=== PATIENT | female | born 1950 | race Caucasian/White ===

== ENCOUNTER 2016-04-25 15:33 | Observation (INO) ==
[2016-04-25 16:31] LABS: Basophils # 0.1 K/mcL (0.0-0.2); Basophils % 0.8 %; Eosinophils # 0.2 K/mcL (0.0-0.6); Eosinophils % 3.2 %; Hemoglobin 12.1 g/dL (11.5-15.4); Immature Granulocytes % 0.4 % (0-4); Lymphocytes # 1.7 K/mcL (0.6-4.6); Lymphocytes % 22.2 %; Mean Corpuscular HGB Conc 34.6 g/dL (31.6-35.5); Mean Corpuscular Hemoglobin 30.3 pg (28.0-33.3); Mean Corpuscular Volume 87.7 fL (83.0-100.0); Monocytes # 0.6 K/mcL (0.0-1.3); Monocytes % 7.8 %; Platelet Count 295 K/mcL (140-400); Red Blood Count 3.99 M/mcL (3.82-4.97); Red Cell Distribution Width 13.1 % (11.5-14.5); Segmented Neutrophils % 65.6 %
[2016-04-25 16:44] LABS: BUN/Creatinine Ratio 23 (6-26); Blood Urea Nitrogen 24 mg/dL (7-20); Carbon Dioxide 22 mEq/L (19-29); Chloride 103 mEq/L (98-109); Glucose 129 mg/dL (70-99); Osmolality,Calculated 296 (280-300); Potassium 4.5 mEq/L (3.5-4.5); Sodium 140 mEq/L (136-145); eGFR For African Americans > 60 (> 60); eGFR For Non-African Americans 54 (> 60)
--- NOTE | 2016-04-25 19:47 | Emergency Department Note ---
Disposition Clinical Impression: Exertional dyspnea, Light headedness, Pre-syncope Disposition: Admitted As Inpatient Condition: Good Referrals: Carlo Acevedo DO [Primary Care Provider] - Forms: ED Satisfaction Letter Time of Disposition: 21:01 SOB HPI - General Chief Complaint: ED Shortness of Breath/Dyspnea Stated Complaint: MARY Time Seen by Provider: 04/25/16 19:39 Source: patient Mode of arrival: ambulatory Limitations: no limitations Nursing Notes Reviewed: Yes Vital Signs Reviewed: Yes - History of Present Illness This is a 66-year-old female who presents with shortness of breath and exertional dyspnea. Patient states when she just sitting there its not as bad but when she starts to move it gets worse. Patient states she had an inconclusive pulmonary function test and she is seeing a almond huller. Patient 's never had any cardiac history. Patient denies any CHF or cardiac stents. Patient states she does have a history of mitral valve prolapse. Patient is not running a fever or coughing. Pt Subjective Complaint: shortness of breath Onset (ago): hour(s) (started worse this morning) - Related Data Home Medications Medication Instructions Recorded Confirmed Atorvastatin Calcium [Lipitor] 80 mg PO QPM 07/06/15 07/06/15 Hydrochlorothiazide 25 mg PO DAILY 07/06/15 07/06/15 Insulin ASPART [Novolog Flexpen] 15 unit SQ TID 07/06/15 07/06/15 Insulin Glargine,Hum.rec.anlog 40 unit SQ BID 07/06/15 07/06/15 [Lantus Solostar] Lisinopril [Zestril] 20 mg PO DAILY 07/06/15 07/06/15 Metformin HCl [Metformin HCl ER] 500 mg PO QPM 07/06/15 07/06/15 Ranitidine HCl [Zantac] 150 mg PO BID 07/06/15 07/06/15 Verapamil HCl [Verapamil ER] 240 mg PO QPM 07/06/15 07/06/15 Previous Rx's Medication Instructions Recorded Levothyroxine [Synthroid] 100 mcg PO DAILY #30 tablet 07/08/15 Meclizine [Antivert] 25 mg PO TID PRN #60 tablet 07/08/15 Allergies Allergy/AdvReac Type Severity Reaction Status Date / Time No Known Allergies Allergy Verified 04/25/16 15:40 All systems ED: reviewed and negative except as stated. Constitutional: Denies: fever, chills, weakness, weight change Eyes: Denies: eye pain, eye discharge, vision change ENT ED: Denies: ear pain, throat pain, dental pain, hearing loss, epistaxis, congestion, dysphagia Cardiovascular: Reports: dyspnea on exertion. Denies: chest pain, palpitations , edema, syncope Respiratory: Reports: dyspnea. Denies: cough, wheezes, hemoptysis, stridor Gastrointestinal: Denies: abdominal pain, nausea, vomiting, diarrhea, constipation, hematemesis, melena, hematochezia Genitourinary: Denies: dysuria, frequency, hematuria, discharge Musculoskeletal: Denies: back pain, neck pain, arthralgia, myalgia Integumentary: Denies: rash, abrasion, lesions Neurological: Denies: headache, weakness, numbness, paresthesias, confusion, abnormal gait, vertigo Psychiatric: Denies: anxiety, depression, suicidal thoughts, homicidal thoughts , auditory hallucinations, visual hallucinations Endocrine: Denies: fatigue Hematological/Lymphatic: Denies: easy bleeding, easy bruising Allergic/Immunologic: Denies: facial swelling, urticaria Past Medical History - Past Medical History Attestation: Yes The following information was validated with the patient. Source: patient Medical history: Reports: diabetes, hypertension, thyroid disease, valvular heart disease Surgical history: Reports: cholecystectomy, hysterectomy Psychiatric history: Reports: no psych history FILM DEVELOPER history: Reports: no FILM DEVELOPER history - Social History Smoking Status: Former smoker Smokeless Tobacco Status: No Alcohol use: Reports: none Drug use: Reports: none Physical Exam - General Limitations: no limitations General appearance: alert, in no apparent distress - Head Head exam: atraumatic, normocephalic, normal inspection - Eye Eye exam: Present: normal appearance, PERRL, EOMI - ENT ENT exam: normal exam, normal oropharynx, mucous membranes moist - Expanded ENT Exam External ear exam: Present: normal external inspection Mouth exam: Present: normal external inspection Teeth exam: Present: normal inspection Throat exam: Present: normal inspection - Neck Neck exam: Present: normal inspection, full ROM, trachea midline - Chest Chest inspection: Present: normal inspection, symmetric chest wall rise - Respiratory Respiratory exam: Present: normal lung sounds bilaterally - Cardiovascular Cardiovascular exam: Present: regular rate, normal rhythm, normal heart sounds - Abdominal Exam Abdominal exam: Present: soft, Non-Tender. Absent: tenderness, distention, guarding, rebound, rigidity - Extremities Exam Extremities exam: Present: normal inspection, full ROM. Absent: tenderness, pedal edema - Expanded Upper Extremity Exam Shoulder exam: Present: normal inspection, full ROM Arm exam: Present: normal inspection, full ROM Elbow exam: Present: normal inspection, full ROM Forearm/Wrist exam: Present: normal inspection, full ROM Hand exam: Present: normal inspection, full ROM Vascular exam: Normal: capillary refill, radial pulse - Expanded Lower Extremity Exam Hip/Pelvis exam: Present: normal inspection, full ROM Upper leg exam: Present: normal inspection, full ROM Knee exam: Present: normal inspection, full ROM Lower leg exam: Present: normal inspection, full ROM Ankle exam: Present: normal inspection, full ROM Foot/toe exam: Present: normal inspection, full ROM Neurovascular/Tendon exam: Absent: motor deficit, sensory deficit, tendon deficit - Back Exam Back exam: Present: normal inspection, full ROM. Absent: tenderness - Neurological Exam Neurological exam: Present: alert, oriented X3 - Expanded Neurological Exam Patient oriented to: Present: person, place, time Coma Scale Eye Opening: Spontaneous Coma Scale Motor Response: Obeys Commands Coma Scale Verbal Response: Oriented Coma Scale Total: 15 - Psychiatric Psychiatric exam: Present: normal affect, normal mood - Skin Skin exam: Present: warm, dry, intact, normal color Course - Reevaluation(s) Reevaluation #1: On repeat evaluation patient states she is still feeling lightheaded and pre- syncopal. Patient would rather come in for an observation. Patient states she had a negative stress test a few months ago. Time: 21:01 - Consultations Consultation #1: I spoke with Dr. Lan caldwell to admit but wants a CTA Chest done. Time: 21:17 Vital Signs Temperature 97.2 F L 04/25/16 15:36 Pulse Rate 76 04/25/16 15:36 Respiratory Rate 20 04/25/16 15:36 Blood Pressure 174/77 04/25/16 15:36 O2 Sat by Pulse Oximetry 94 L 04/25/16 15:36 Temperature 97.2 F L 04/25/16 15:36 Pulse Rate 61 04/25/16 20:26 Respiratory Rate 16 04/25/16 20:26 Blood Pressure 160/65 04/25/16 20:26 O2 Sat by Pulse Oximetry 96 04/25/16 20:26 Oxygen Delivery Oxygen Delivery Room Air Shortness of Breath/Dyspnea - Medical Records Medical records reviewed: Yes I reviewed the patient's medical records. - Lab Data Lab results reviewed: Yes I reviewed the patient's lab results. Result diagrams: 04/25/16 16:20 04/25/16 16:20 Lab Results 04/25/16 04/25/16 04/25/16 Range/Units 16:20 16:20 16:20 WBC 7.6 (4.3-11.1) K/mcL RBC 3.99 (3.82-4.97) M/mcL Hgb 12.1 (11.5-15.4) g/dL Hct 35.0 L (35.3-44.9) % MCV 87.7 (83.0-100.0) fL MCH 30.3 (28.0-33.3) pg MCHC 34.6 (31.6-35.5) g/dL RDW 13.1 (11.5-14.5) % Plt Count 295 (140-400) K/mcL MPV 10.0 (9.4-12.4) fL Immature Gran % 0.4 (0-4) % Seg Neutrophils % 65.6 % Lymphocytes % 22.2 % Monocytes % 7.8 % Eosinophils % 3.2 % Basophils % 0.8 % Neutrophils # 5.0 (1.6-8.9) K/mcL Lymphocytes # 1.7 (0.6-4.6) K/mcL Monocytes # 0.6 (0.0-1.3) K/mcL Eosinophils # 0.2 (0.0-0.6) K/mcL Basophils # 0.1 (0.0-0.2) K/mcL D-Dimer (0-500) ng/mLFEU Sodium 140 (136-145) mEq/L Potassium 4.5 (3.5-4.5) mEq/L Chloride 103 (98-109) mEq/L Carbon Dioxide 22 (19-29) mEq/L BUN 24 H (7-20) mg/dL Creatinine 1.03 (0.57-1.11) mg/dL Est GFR ( Amer) > 60 (> 60) Est GFR (Non-Af Amer) 54 L (> 60) BUN/Creatinine Ratio 23 (6-26) Glucose 129 H (70-99) mg/dL Calculated Osmolality 296 (280-300) Calcium 10.0 (8.6-10.8) mg/dL Troponin I 0.01 (0-0.03) ng/mL B-Natriuretic Peptide (0-100) pg/mL Urine Color (Yellow) Urine Clarity (Clear) Urine pH (5.0-8.0) pH Units Ur Specific [place] (1.010-1.025) Urine Protein (Neg-Trace) mg/dL Urine Glucose (UA) (Normal) mg/dL Urine Ketones (Negative) mg/dL Urine Blood (Negative) Urine Nitrite (Negative) Urine Bilirubin (Negative) Urine Urobilinogen (Normal) mg/dL Ur Leukocyte Esterase (Negative) Urine Microscopic RBC (0-3) per hpf Urine Microscopic WBC (0-3) per hpf Ur Squamous Epith Cells (None-Few) per lpf Urine Bacteria (None-Few) per hpf Hyaline Casts (None-Few) per lpf Ur Culture Indicated? (NO) 04/25/16 04/25/16 04/25/16 Range/Units 16:20 19:45 20:10 WBC (4.3-11.1) K/mcL RBC (3.82-4.97) M/mcL Hgb (11.5-15.4) g/dL Hct (35.3-44.9) % MCV (83.0-100.0) fL MCH (28.0-33.3) pg MCHC (31.6-35.5) g/dL RDW (11.5-14.5) % Plt Count (140-400) K/mcL MPV (9.4-12.4) fL Immature Gran % (0-4) % Seg Neutrophils % % Lymphocytes % % Monocytes % % Eosinophils % % Basophils % % Neutrophils # (1.6-8.9) K/mcL Lymphocytes # (0.6-4.6) K/mcL Monocytes # (0.0-1.3) K/mcL Eosinophils # (0.0-0.6) K/mcL Basophils # (0.0-0.2) K/mcL D-Dimer 610 H (0-500) ng/mLFEU Sodium (136-145) mEq/L Potassium (3.5-4.5) mEq/L Chloride (98-109) mEq/L Carbon Dioxide (19-29) mEq/L BUN (7-20) mg/dL Creatinine (0.57-1.11) mg/dL Est GFR ( Amer) (> 60) Est GFR (Non-Af Amer) (> 60) BUN/Creatinine Ratio (6-26) Glucose (70-99) mg/dL Calculated Osmolality (280-300) Calcium (8.6-10.8) mg/dL Troponin I (0-0.03) ng/mL B-Natriuretic Peptide 36 (0-100) pg/mL Urine Color Yellow (Yellow) Urine Clarity Clear (Clear) Urine pH 5.5 (5.0-8.0) pH Units Ur Specific [place] 1.025 (1.010-1.025) Urine Protein Negative (Neg-Trace) mg/dL Urine Glucose (UA) Normal (Normal) mg/dL Urine Ketones Trace H (Negative) mg/dL Urine Blood Negative (Negative) Urine Nitrite Negative (Negative) Urine Bilirubin Negative (Negative) Urine Urobilinogen Normal (Normal) mg/dL Ur Leukocyte Esterase Small H (Negative) Urine Microscopic RBC 0-3 (0-3) per hpf Urine Microscopic WBC 15-30 H (0-3) per hpf Ur Squamous Epith Cells Many H (None-Few) per lpf Urine Bacteria None Seen (None-Few) per hpf Hyaline Casts None Seen (None-Few) per lpf Ur Culture Indicated? YES A (NO) 04/25/16 Range/Units 20:10 WBC (4.3-11.1) K/mcL RBC (3.82-4.97) M/mcL Hgb (11.5-15.4) g/dL Hct (35.3-44.9) % MCV (83.0-100.0) fL MCH (28.0-33.3) pg MCHC (31.6-35.5) g/dL RDW (11.5-14.5) % Plt Count (140-400) K/mcL MPV (9.4-12.4) fL Immature Gran % (0-4) % Seg Neutrophils % % Lymphocytes % % Monocytes % % Eosinophils % % Basophils % % Neutrophils # (1.6-8.9) K/mcL Lymphocytes # (0.6-4.6) K/mcL Monocytes # (0.0-1.3) K/mcL Eosinophils # (0.0-0.6) K/mcL Basophils # (0.0-0.2) K/mcL D-Dimer (0-500) ng/mLFEU Sodium (136-145) mEq/L Potassium (3.5-4.5) mEq/L Chloride (98-109) mEq/L Carbon Dioxide (19-29) mEq/L BUN (7-20) mg/dL Creatinine (0.57-1.11) mg/dL Est GFR ( Amer) (> 60) Est GFR (Non-Af Amer) (> 60) BUN/Creatinine Ratio (6-26) Glucose (70-99) mg/dL Calculated Osmolality (280-300) Calcium (8.6-10.8) mg/dL Troponin I 0.01 (0-0.03) ng/mL B-Natriuretic Peptide (0-100) pg/mL Urine Color (Yellow) Urine Clarity (Clear) Urine pH (5.0-8.0) pH Units Ur Specific [place] (1.010-1.025) Urine Protein (Neg-Trace) mg/dL Urine Glucose (UA) (Normal) mg/dL Urine Ketones (Negative) mg/dL Urine Blood (Negative) Urine Nitrite (Negative) Urine Bilirubin (Negative) Urine Urobilinogen (Normal) mg/dL Ur Leukocyte Esterase (Negative) Urine Microscopic RBC (0-3) per hpf Urine Microscopic WBC (0-3) per hpf Ur Squamous Epith Cells (None-Few) per lpf Urine Bacteria (None-Few) per hpf Hyaline Casts (None-Few) per lpf Ur Culture Indicated? (NO) - Radiology Data Radiology results reviewed: Yes I reviewed the patient's radiology results. - EKG Data EKG attestation: Yes I reviewed and interpreted this EKG. EKG shows normal: Reports: sinus rhythm Rate: Reports: normal Rhythm: Reports: NSR [place]/QRS: Reports: normal Interpretation: Reports: no acute changes, normal EKG
[2016-04-25 20:01] LABS: Bilirubin,Urine Negative (Negative); Blood,Urine Negative (Negative); Clarity,Urine Clear (Clear); Color,Urine Yellow (Yellow); Glucose,Urine (UA) Normal (Normal); Ketones,Urine Trace mg/dL (Negative); Leukocyte Esterase,Urine Small (Negative); Nitrite,Urine Negative (Negative); PH,Urine 5.5 pH Units (5.0-8.0); Protein,Urine Negative (Neg-Trace); Specific Gravity,Urine 1.025 (1.010-1.025); Urobilinogen,Urine Normal (Normal)
[2016-04-25 20:04] LABS: Bacteria,Urine None Seen per hpf (None-Few); Hyaline Casts,Urine None Seen per lpf (None-Few); RBC,Urine 0-3 per hpf (0-3); Squamous Epithelial Cell,Urine Many per lpf (None-Few); WBC,Urine 15-30 per hpf (0-3)
[2016-04-25] MEDS ORDERED: Dextrose Gel 15 GM PO PRN ×2 (23:08)
[2016-04-25] MEDS ORDERED: *HR* Dextrose 50 % in Water (Syg) 50 ML SYRINGE IVP PRN (23:08)
[2016-04-25] MEDS ORDERED: D5% in Water 1,000 ML IV PRN (23:08)
[2016-04-25] MEDS ORDERED: Ondansetron 4 MG/2 ML VIAL IVP PRN (23:21)
[2016-04-25] MEDS ORDERED: Acetaminophen 325 MG TABLET PO PRN (23:21)
[2016-04-25] MEDS ORDERED: Naloxone 0.4 MG/ML INJ IVP PRN (23:21)
--- NOTE | 2016-04-25 23:38 | Event Note ---
Addendum entered and electronically signed by Chava Montenegro MD 04/25/16 22:42 : She also had an angiogram showing no occlusive CAD Original Note: Date of Encounter: 04/25/16 Time of Encounter: 22:35 Patient seen and examined with medical bill processor. Briefly 66-year-old female with history of hypertension, obstructive sleep apnea CPAP, hypothyroidism only with thyroxine presents with a main complaining of shortness of breath. Patient gets short of breath with walking less than half a block. She denies any orthopnea or lower extremity swelling. She had workup for this no clear cause was found. She will start at on Lasix for suspected mild diastolic dysfunction evident on echocardiogram related to hypertension however she did not feel that that helped her symptoms. She has a 70 pack your smoking history quit smoking 18 years ago and was started on an albuterol inhaler and feels that this somewhat help her symptoms however it lasts for a short time. She had a pulmonary function test but it was non conclusive. She saturating 95% on room air in the emergency room. I suspect that her symptoms may be related to underlying COPD. Advised her to repeat pulmonary function test. We start the patient empirically on Advair to see if she will benefit from inhaled steroids. D dimer was also elevated and CT angiogram is being performed through [facility]. Another possibility is the presence of pulmonary hypertension related to obstructive sleep apnea and possible COPD and that can cause shortness of breath.
--- NOTE | 2016-04-26 00:12 | Internal Med History&Physical ---
Date of Encounter: 04/25/16 Time of Encounter: 23:00 Assessment and Plan (1) Exertional dyspnea Current visit: Yes Status: Acute Patient reports shortness of breath upon exertion. She reports some periods of blackout vision that lasts a few minutes. She denies syncopal episodes. Etiology unclear at this time. CTA was negative for PE. Heart normal in size, and no pericardial effusion or pleural effusion was noted. CXR was reviewed-suggests hyperinflation and possible COPD. Patient states that she had PFTs done by per cinema or theatre manager that were inconclusive. Consider repeat PFTs outpatient with follow up to pulmonology. Patient has a significant 70 pack year smoking history but is not a current smoker. Last echo was done on 07/07/15 which showed LVEF 65% with normal LV size and function and mild diastolic dysfunction. Consider COPD, pulmonary hypertension as a possible cause of her symptoms. trial of inhaled steroids. (2) RAJENDRA (obstructive sleep apnea) Current visit: Yes Status: Chronic Patient reports compliance with bipap at home, says her settings are 8/4. Continue with BiPAP use at hospital. (3) Diabetes mellitus, type II Current visit: Yes Status: Chronic Levemir with medium dose sliding scale insulin ACHS accuchecks cardiac/diabetic diet. Qualifiers: Diabetes mellitus complication status: with unspecified complications Diabetes mellitus oil heaterman insulin use: unspecified alf insulin use status Qualified Code(s): E11.8 - Type 2 diabetes mellitus with unspecified complications (4) Hypothyroidism Current visit: No Status: Chronic continue home dose of synthroid. Qualifiers: Hypothyroidism type: unspecified Qualified Code(s): E03.9 - Hypothyroidism , unspecified (5) Obesity Current visit: Yes Status: Chronic patient counseled on importance of weight loss and exercise. Qualifiers: Obesity type: unspecified obesity type Obesity severity: unspecified obesity severity Qualified Code(s): E66.9 - Obesity, unspecified (6) Hypertension Current visit: Yes Status: Acute continue home dose of lisinopril. Qualifiers: Hypertension type: essential hypertension Qualified Code(s): I10 - Essential (primary) hypertension (7) DVT prophylaxis Current visit: No Status: Acute heparin 5,000 units SQ Q8HR Internal Medicine - H&P: HPI Chief complaint: shortness of breath Admitted From: Home Plans for Post Hospital Care: Home History of present illness: PCP: Kristina Matos Ms. Barraza is a 66 year old female with PMHx of hypothyroidism, Type 2 DM, obesity, fibromyalgia, hypertension, mitral valve prolapse RAJENDRA (on BiPAP at home ). Patient has Chief complaint of shortness of breath that started a few days ago and progressively got worse. She reports shortness of breath upon exertion, and today noticed some shortness of breath at rest which made her come to the hospital. Upon interview, she denied shortness of breath. She did not require any supplemental oxygen. Patient denies any syncope. She states that at times, her vision would get completely black for a few minutes, then return to normal. She denies weakness. Denies any cough, sputum production, headache, fever, chills. Patient has a 70 pack year smoking history. She is not a current smoker and quit about 18 years ago. She regularly sees a cinema or theatre manager. She had PFTs done but they were inconclusive. Social Hisotory: patient denies alcohol or illicit drug use. Smoked for 35 years , 2PPD. Quit 18 years ago. Surgical Hx: hysterectomy in 1999, open cholecystectomy in 1972, hysteroscopy with tubal ligation in Family Hx: mother from stroke at age 59. Father from [place] at age 82. Brother from bone cancer, sister from liver cancer. SHe has four children, two of them have DM. Past Med Surg Social Fam HX - Past Medical History Medical history: diabetes, hypertension, thyroid disease, valvular heart disease Psychiatric history: no psych history - Past Surgical History Surgical History: cholecystectomy, hysterectomy - Social History Smoking Status: Former smoker Smokeless Tobacco Status: No Alcohol use: none Drug use: none - Family History Father Living Status: Age at : 82 Cause of : Natural Hx Family Cardiac Disorders: Yes (HTN) Hx Family Respiratory Disorders: Yes (COPD, black lung) Hx Family Neurologic Disorders: Yes (Dementia) Brother Hx Family Cancer: Yes Mother Living Status: Age at : 59 Cause of : Stroke Hx Family Genitourinary Disorders: Yes (renal failure) Hx Family Endocrine Disorder: Yes (DM) Hx Family Neurologic Disorders: Yes (stroke) Internal Medicine - H&P: Meds Insulin ASPART [Novolog Flexpen] 25 unit SQ TID 07/06/15 [History] Insulin Glargine,Hum.rec.anlog [Lantus Solostar] 40 unit SQ BID 07/06/15 [ History] Lisinopril [Zestril] 20 mg PO QAM 07/06/15 [History] Metformin HCl [Metformin HCl ER] 500 mg PO QPM 07/06/15 [History] Ranitidine HCl [Zantac] 150 mg PO BID 07/06/15 [History] Carvedilol 12.5 mg PO BID 04/25/16 [History] Furosemide [Lasix] 20 mg PO QAM 04/25/16 [History] Levothyroxine [Synthroid] 100 mcg PO QAM 04/25/16 [History] Marco A's Wort 300 mg PO BID 04/25/16 [History] Allergies atorvastatin [From Lipitor] Adverse Reaction (Verified 04/25/16 21:35) Muscle Pain All Systems PM: A 10-system review of systems was performed and is negative for pertinent findings except as documented above in the HPI. - Constitutional Constitutional: no anorexia, no chills, no fatigue, no fever(s), no falls - EENT Eyes: change in vision - Cardiovascular Cardiovascular ROS IM: dyspnea, dyspnea on exertion, no chest pain, no syncope - Respiratory Respiratory: dyspnea on exertion, no cough, no wheezing - Gastrointestinal Gastrointestinal: no abdominal pain, no hematochezia, no melena - Neurological Neurological ROS: no frequent falls, no headache(s) - Constitutional Vitals: Temp Pulse Resp BP Pulse Ox 97.6 F 63 17 172/70 92 L 04/25/16 22:36 04/25/16 22:36 04/25/16 22:36 04/25/16 22:36 04/25/16 22:36 General appearance: Present: A&O X 3, pleasant, no acute distress, obese, answers questions appropriately - Head Head exam: Present: atraumatic, normocephalic - Neck Neck exam general surgery: Present: supple, trachea midline - Respiratory Respiratory exam: Present: decreased breath sounds (significantly decreased breath sounds througout bilaterally. ) - Cardiovascular Cardiovascular exam: Present: RRR (murmur noted.) - GI/Abdominal GI/Abdominal exam: Present: soft. Absent: tenderness (obese) - Extremities Exam Extremities exam: Absent: cyanotic, pedal edema (no clubbing noted.) - Neurological Exam Neurological exam: Present: alert, oriented X3, no focal deficits Internal Med - H&P Results - Labs CBC & Chem 7: 04/25/16 16:20 04/25/16 16:20
[2016-04-26 05:07] LABS: Basophils % 0.5 %; Eosinophils # 0.3 K/mcL (0.0-0.6); Eosinophils % 3.2 %; Hemoglobin 11.1 g/dL (11.5-15.4); Immature Granulocytes % 0.3 % (0-4); Lymphocytes % 24.6 %; Mean Corpuscular HGB Conc 33.6 g/dL (31.6-35.5); Mean Corpuscular Hemoglobin 29.6 pg (28.0-33.3); Mean Platelet Volume 10.4 fL (9.4-12.4); Monocytes # 0.8 K/mcL (0.0-1.3); Monocytes % 9.6 %; Neutrophils # 4.9 K/mcL (1.6-8.9); Platelet Count 221 K/mcL (140-400); Red Blood Count 3.75 M/mcL (3.82-4.97); Red Cell Distribution Width 13.2 % (11.5-14.5); Segmented Neutrophils % 61.8 %
[2016-04-26 05:20] LABS: BUN/Creatinine Ratio 30 (6-26); Blood Urea Nitrogen 26 mg/dL (7-20); Calcium 9.7 mg/dL (8.6-10.8); Carbon Dioxide 21 mEq/L (19-29); Chloride 106 mEq/L (98-109); Glucose 159 mg/dL (70-99); Osmolality,Calculated 298 (280-300); Sodium 140 mEq/L (136-145); eGFR For African Americans > 60 (> 60); eGFR For Non-African Americans > 60 (> 60)
[2016-04-26] MEDS: *HR* Heparin 5,000 UNIT/ML VIAL SQ SCH ×3 (06:31→23:05)
[2016-04-26] MEDS: Budesonide/Formoterol 80/4.5 MDI IH SCH ×2 (08:21→20:17)
[2016-04-26] MEDS: Insulin LISPRO 300 UNITS/3 ML VIAL SQ SCH ×6 (08:39→17:33)
[2016-04-26] MEDS: Lisinopril 20 MG TABLET PO SCH (08:40)
[2016-04-26] MEDS: Insulin DETEMIR 100 UNIT/ML X5UNITS SQ SCH ×2 (08:40→20:41)
[2016-04-26] MEDS: Furosemide 20 MG TABLET PO SCH (08:40)
--- NOTE | 2016-04-26 11:19 | Electrocardiograph Report ---
[facility] Test Date: 2016-04-25 Pat Name: Angelia Barraza Department: 105 Room: 3B54 Gender: F Layer Off: EC : 1950 Requested By: Sussy Alvarado Order Number: [id number] Reading MD: Yaneth Avalos Measurements Intervals [place] Rate: 66 P: 38 [place]: 125 QRS: -9 QRSD: 78 T: 30 QT: 380 QTc: 393 Interpretive Statements SINUS RHYTHM Electronically Signed On 04-26-16 11:18:12 EST by Yaneth Avalos
--- NOTE | 2016-04-26 11:35 | Electrocardiograph Report ---
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
--- NOTE | 2016-04-26 16:43 | Internal Med Progress Note ---
Date of Encounter: 04/26/16 Time of Encounter: 16:40 - Assessment and plan (1) Exertional dyspnea Current Visit: Yes Status: Acute Assessment and plan: Patient with underlying hypertension, morbid obesity T, obstructive sleep apnea admitted due to shortness of breath. No evidence of pulmonary embolism, pneumonia. Negative urine culture. She is doing much better, would continue with current therapy. Continue monitoring, possible discharge tomorrow in a.m. Plan of care was discussed in detail with the patient and her family members, they expressed understanding. The patient has a follow-up appointment with pulmonology as outpatient. (2) Hypertension Current Visit: Yes Status: Acute Qualifiers: Hypertension type: essential hypertension Qualified Code(s): I10 - Essential (primary) hypertension (3) RAJENDRA (obstructive sleep apnea) Current Visit: Yes Status: Chronic (4) Obesity Current Visit: Yes Status: Chronic Qualifiers: Obesity type: unspecified obesity type Obesity severity: unspecified obesity severity Qualified Code(s): E66.9 - Obesity, unspecified - Subjective Interval history: This is my first encounter with the patient. The patient was seen and examined on rounds. Her family members were present during this encounter. She feels short of breath, however she is much better than yesterday. No wheezing at this point. - Constitutional Vitals: Temp Pulse Resp BP Pulse Ox 97.9 F 67 14 130/60 95 04/26/16 15:00 04/26/16 15:00 04/26/16 15:00 04/26/16 15:00 04/26/16 15:00 General appearance: Present: A&O X 3, morbidly obese, pleasant, no acute distress, answers questions appropriately - Head Head exam: Present: atraumatic, normocephalic - Eye Eye exam: Present: PERRL, conjuntiva pink, sclera anicteric Pupils: Present: PERRL - Neck Neck exam general surgery: Present: supple, trachea midline. Absent: lymphadenopathy - Respiratory Respiratory exam: Present: CTAB. Absent: accessory muscle use, rales, rhonchi, wheezes - Cardiovascular Cardiovascular exam: Present: RRR, +S1, +S2. Absent: diastolic murmur, gallop, rubs, systolic murmur - GI/Abdominal GI/Abdominal exam: Present: normal bowel sounds, soft, no peritoneal signs. Absent: distended, tenderness - Extremities Exam Extremities exam: Present: warm, radial pulses palpable and symetrical. Absent : calf tenderness, cyanotic, pedal edema - Neurological Exam Neurological exam: Present: CN II-XII intact, oriented X3, no focal deficits. Absent: pronater drift, facial droop, speech deficit - Skin Skin exam: Present: dry, intact Internal Medicine: Result - Labs CBC & Chem 7: 04/26/16 04:42 04/26/16 04:42 Labs: Short CBC 04/26/16 Range/Units 04:42 WBC 7.9 (4.3-11.1) K/mcL Hgb 11.1 L (11.5-15.4) g/dL Hct 33.0 L (35.3-44.9) % Plt Count 221 (140-400) K/mcL Neutrophils # 4.9 (1.6-8.9) K/mcL BMP 04/26/16 04:42 Sodium 140 Potassium 4.0 Chloride 106 Carbon Dioxide 21 BUN 26 H Creatinine 0.86 Glucose 159 H Calcium 9.7 - ABG Interpretation ABG results: PT/INR, D-dimer D-Dimer 610 ng/mLFEU (0-500) H 04/25/16 20:10 Consult Discharge Plan - Plan Referrals: Carlo Acevedo DO [Primary Care Provider] - 05/09/16 2:30 pm
[2016-04-26] MEDS ORDERED: Insulin LISPRO 300 UNITS/3 ML VIAL SQ SCH (21:00)
[2016-04-27] MEDS: *HR* Heparin 5,000 UNIT/ML VIAL SQ SCH (06:41)
[2016-04-27] MEDS: Insulin LISPRO 300 UNITS/3 ML VIAL SQ SCH ×4 (07:30→13:00)
[2016-04-27] MEDS: Lisinopril 20 MG TABLET PO SCH (07:46)
[2016-04-27] MEDS: Furosemide 20 MG TABLET PO SCH (07:47)
[2016-04-27] MEDS: Insulin DETEMIR 100 UNIT/ML X5UNITS SQ SCH (10:14)
[2016-04-27] MEDS: Budesonide/Formoterol 80/4.5 MDI IH SCH (10:54)
[2016-04-27 11:17] VITALS: BP 123/73
--- NOTE | 2016-04-27 12:42 | Discharge Summary ---
Date of Encounter: 04/27/16 Time of Encounter: 12:38 - Discharge Diagnosis (1) Exertional dyspnea Priority: Secondary Status: Acute (2) Hypertension Priority: Secondary Status: Acute Qualifiers: Hypertension type: essential hypertension Qualified Code(s): I10 - Essential (primary) hypertension (3) RAJENDRA (obstructive sleep apnea) Priority: Primary Status: Chronic (4) Obesity Priority: Secondary Status: Chronic Qualifiers: Obesity type: unspecified obesity type Obesity severity: unspecified obesity severity Qualified Code(s): E66.9 - Obesity, unspecified - Discharge Medications Prescriptions: Albuterol Sulfate [Albuterol Inhaler] 2 puff IH Q4H #1 puff Budesonide/Formoterol 80/4.5 [Symbicort 80/4.5] 1 puff IH Q12H #1 puff Home Medications: Insulin ASPART [Novolog Flexpen] 25 unit SQ TID 07/06/15 [History] Insulin Glargine,Hum.rec.anlog [Lantus Solostar] 40 unit SQ BID 07/06/15 [ History] Lisinopril [Zestril] 20 mg PO QAM 07/06/15 [History] Metformin HCl [Metformin HCl ER] 500 mg PO QPM 07/06/15 [History] Ranitidine HCl [Zantac] 150 mg PO BID 07/06/15 [History] Carvedilol 12.5 mg PO BID 04/25/16 [History] Furosemide [Lasix] 20 mg PO QAM 04/25/16 [History] Levothyroxine [Synthroid] 100 mcg PO QAM 04/25/16 [History] [place]'s Wort 300 mg PO BID 04/25/16 [History] Albuterol Sulfate [Albuterol Inhaler] 2 puff IH Q4H #1 puff 04/27/16 [Rx] Budesonide/Formoterol 80/4.5 [Symbicort 80/4.5] 1 puff IH Q12H #1 puff [Rx] Allergies/Adverse Reactions: Allergies atorvastatin [From Lipitor] Adverse Reaction (Verified 04/25/16 21:35) Muscle Pain Date of admission: 04/25/16 21:25 Primary care physician: Marie Del Real Consults: 04/25/16 22:40 Consult to Respiratory Therapy [CONS] Stat Reason for Consult: patient uses BiPAP at home. Please manage settings. Call Completed: No 04/25/16 23:08 Consult to [employer] [CONS] Routine Comment: 04/25/16 23:38 Consult to Bi Lead [CONS] Routine Reason for SW Consult: 6 min walk before discharge Discharging clinician: Ilia Luna Anticipated date of discharge: 04/27/16 - Patient Status Disposition: Home, Self-Care Condition: Good Functional capacity at discharge: independent ambulation Overall status at discharge: patient is back to baseline - Discharge Instructions Follow Up With: Carlo Acevedo DO [Primary Care Provider] - 05/09/16 2:30 pm - Diet and Activity Activity: increase activity as tolerated Diet: advance to your usual diet Interval History: Ms. Barraza is a 66 year old female with PMHx of hypothyroidism, Type 2 DM, obesity, fibromyalgia, hypertension, mitral valve prolapse RAJENDRA (on BiPAP at home ). Patient has Chief complaint of shortness of breath that started a few days ago and progressively got worse. She reports shortness of breath upon exertion, and today noticed some shortness of breath at rest which made her come to the hospital. Upon interview, she denied shortness of breath. She did not require any supplemental oxygen. Patient denies any syncope. She states that at times, her vision would get completely black for a few minutes, then return to normal. She denies weakness. Denies any cough, sputum production, headache, fever, chills. Patient has a 70 pack year smoking history. She is not a current smoker and quit about 18 years ago. She regularly sees a [facility]. She had PFTs done but they were inconclusive. Social Hisotory: patient denies alcohol or illicit drug use. Smoked for 35 years , 2PPD. Quit 18 years ago. Surgical Hx: hysterectomy in 1999, open cholecystectomy in 1972, hysteroscopy with tubal ligation in Family Hx: mother from stroke at age 59. Father from [place] at age 82. Brother from bone cancer, sister from liver cancer. SHe has four children, two of them have DM. Hospital course: Ms. Barraza is a 66 year old female Patient with underlying hypertension, morbid obesity T, obstructive sleep apnea admitted due to shortness of breath. No evidence of pulmonary embolism, pneumonia. Negative urine culture. She is doing much better, would continue with current therapy as outpatient, will discharge her on symbicort and albuterol. Plan of care was discussed in detail with the patient, she expressed understanding. The patient has a follow-up appointment with pulmonology as outpatient. - Time Spent with Patient Total time spent providing and/or coordinating discharge services: Greater than 30 minutes - Constitutional Vitals: Temp Pulse Resp BP Pulse Ox 98.0 F 58 15 123/73 95 04/27/16 11:12 04/27/16 11:12 04/27/16 11:12 04/27/16 11:12 04/27/16 11:12 General appearance: Present: A&O X 3, morbidly obese, pleasant, no acute distress, answers questions appropriately - Head Head exam: Present: atraumatic, normocephalic - Eye Eye exam: Present: PERRL, conjuntiva pink, sclera anicteric Pupils: Present: PERRL - Neck Neck exam general surgery: Present: supple, trachea midline. Absent: lymphadenopathy - Respiratory Respiratory exam: Present: CTAB. Absent: accessory muscle use, rales, rhonchi, wheezes - Cardiovascular Cardiovascular exam: Present: RRR, +S1, +S2. Absent: diastolic murmur, gallop, rubs, systolic murmur - GI/Abdominal GI/Abdominal exam: Present: normal bowel sounds, soft, no peritoneal signs. Absent: distended, tenderness - Extremities Exam Extremities exam: Present: warm, radial pulses palpable and symetrical. Absent : calf tenderness, cyanotic, pedal edema - Neurological Exam Neurological exam: Present: CN II-XII intact, oriented X3, no focal deficits. Absent: pronater drift, facial droop, speech deficit - Skin Skin exam: Present: dry, intact
== END 2016-04-27 13:35 | disposition home or self-care (01) ==
LOC: 3BNU 15:33 → EMEROO 15:33 → SUATTDRO 21:25 → 3BNU 22:42
PROVIDERS: ADMIT Internal Medicine; ATTEND Internal Medicine

== ENCOUNTER 2018-07-08 12:19 | Inpatient (IN) ==
[2018-07-08] MEDS ORDERED: Ondansetron 4 MG/2 ML VIAL IVP ONE ×2 (12:40→14:58)
[2018-07-08] MEDS ORDERED: 0.9 % Sodium Chloride 1,000 ML IVC ONE (12:40)
[2018-07-08] MEDS ORDERED: *HR* FentaNYL (PF) 100 MCG/2 ML VIAL IVP ONE (12:43)
--- NOTE | 2018-07-08 12:46 | Emergency Department Note ---
Disposition Clinical Impression: Pancreatitis Qualifiers: Chronicity: acute Pancreatitis type: unspecified pancreatitis type Acute pancreatitis complication: unspecified Qualified Code(s): K85.90 - Acute pancreatitis without necrosis or infection, unspecified Disposition: Admitted As Inpatient Referrals: Carlo Acevedo DO [Primary Care Provider] - Forms: ED Satisfaction Letter, Work/School Release Time of Disposition: 15:06 General Adult HPI - General Chief complaint: ED Abdominal Pain Stated complaint: pancreatitis Time Seen by Provider: 07/08/18 12:33 Nursing Notes Reviewed: Yes Vital Signs Reviewed: Yes - History of Present Illness HPI Narrative: 68-year-old female with past medical history significant for hypertension, [place], diabetes mellitus. Presenting for evaluation of epigastric pain beginning approximately 3 hours ago. Radiates across her abdomen in a bandlike fashion. Associated nausea and vomiting. Denies fever, chills, diarrhea, hematemesis, melena, or hematochezia. Denies chest pain or shortness of breath. No change in pain since onset. States that this feels similar to prior episode of pancreatitis as far as location and intensity. She started a new medication on , , for diabetes. Pt Subjective Complaint: Abdominal pain Onset (ago): [employer] Location: abdomen Pain Severity: severe Pain Scale: 10 Quality: sharp Consistency: constant Improves with: nothing Worsens with: nothing Associated symptoms: Reports: nausea/vomiting Treatments Prior to Arrival: none - Related Data Home Medications Medication Instructions Recorded Confirmed Insulin ASPART [Novolog Flexpen] 25 unit SQ TID 07/06/15 04/25/16 Insulin Glargine,Hum.rec.anlog 40 unit SQ BID 07/06/15 04/25/16 [Lantus Solostar] Lisinopril [Zestril] 20 mg PO QAM 07/06/15 04/25/16 Metformin HCl [Metformin ER 500 mg PO QPM 07/06/15 04/25/16 Gastric] raNITIdine HCl [Zantac] 150 mg PO BID 07/06/15 04/25/16 Carvedilol 12.5 mg PO BID 04/25/16 04/25/16 Furosemide [Lasix] 20 mg PO QAM 04/25/16 04/25/16 Levothyroxine [Synthroid] 100 mcg PO QAM 04/25/16 04/25/16 Marco A's Wort 300 mg PO BID 04/25/16 04/25/16 Previous Rx's Medication Instructions Recorded Albuterol Sulfate [Albuterol 2 puff IH Q4H #1 puff 04/27/16 Inhaler] Budesonide/Formoterol 80/4.5 1 puff IH Q12H #1 puff 04/27/16 [Symbicort 80/4.5] Meclizine [Antivert] 12.5 mg PO TID PRN #14 tablet 03/04/18 Allergies Allergy/AdvReac Type Severity Reaction Status Date / Time atorvastatin [From Lipitor] AdvReac Muscle Pain Verified 03/04/18 11:19 All systems ED: reviewed and negative except as stated. Constitutional: Denies: fever, chills Eyes: Denies: vision change Cardiovascular: Denies: chest pain Respiratory: Denies: cough, dyspnea Gastrointestinal: Reports: abdominal pain, nausea, vomiting. 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 Absent: scleral icterus, conjunctival injection - ENT ENT exam: normal oropharynx, mucous membranes moist - Respiratory Respiratory exam: Present: normal lung sounds bilaterally. Absent: respiratory distress - Cardiovascular Cardiovascular exam: Present: regular rate, normal rhythm. Absent: systolic murmur, diastolic murmur - Abdominal Exam Abdominal exam: Present: soft, tenderness (epigastric). Absent: distention, guarding, rebound, heel tap sign, Alvarenga's sign, tenderness at McBur[place]'s Point Abdominal tenderness: Present: epigastrium - Extremities Exam Extremities exam: Absent: pedal edema, calf tenderness - Back Exam Back exam: Absent: CVA tenderness (R), CVA tenderness (L), paraspinal tenderness - Neurological Exam Neurological exam: Present: alert, oriented X3 - Skin Skin exam: Present: warm, dry Course Course Narrative: Patient with history of pancreatitis, DM, and [place] with acute onset abdominal pain that is similar to prior pancreatitis. Vital signs stable, afebrile. Associated nausea and vomiting. Will evaluate with EKG, chest xray, troponin, cbc, bmp, hepatic panel, lipase, lactate, and UA. Will provide IV fluids, antiemetic and pain control. - Reevaluation(s) Reevaluation #1: Patient is seen and reevaluated the bedside. No acute changes. Patient does report improvement in pain and symptoms with medications. Laboratory evaluation does reveal a lipase of greater than 1800 and an amylase of 399. Chest x-ray without acute abnormality, EKG without acute changes of ischemia, troponin within normal limits. WBC of 13K. With mild elevation in white count and history of pancreatitis will evaluate with CT abdomen and pelvis for pseudocyst, necrosis, infection. Will make NPO, patient will require admission. Time: 13:54 Reevaluation #2: CT scan does reveal peripancreatic fat stranding and duodenitis of the second and third portions of the duodenum. No abscess or focal fluid collection identified. Patient given 1 dose of IV Zosyn. Accepted for admission by admitting hospitalist Dr. Santos. At time of disposition patient stable, vital signs within normal limits, afebrile. Time: 15:06 Vital Signs Temperature 97.4 F L 07/08/18 12:30 Pulse Rate 56 07/08/18 12:30 Respiratory Rate 22 07/08/18 12:30 Blood Pressure 160/84 07/08/18 12:30 O2 Sat by Pulse Oximetry 96 07/08/18 12:30 Temperature 97.4 F L 07/08/18 13:04 Pulse Rate 56 07/08/18 13:04 Respiratory Rate 22 07/08/18 13:04 Blood Pressure 160/84 07/08/18 13:04 O2 Sat by Pulse Oximetry 96 07/08/18 13:04 Oxygen Delivery Oxygen Delivery Room Air Medical Decision Making - Lab Data Result diagrams: 07/08/18 12:53 07/08/18 12:53 Lab Results 07/08/18 07/08/18 07/08/18 Range/Units 12:53 12:53 12:53 WBC 13.3 H (4.3-11.1) K/mcL RBC 4.08 (3.82-4.97) M/mcL Hgb 12.2 (11.5-15.4) g/dL Hct 36.6 (35.3-44.9) % MCV 89.7 (83.0-100.0) fL MCH 29.9 (28.0-33.3) pg MCHC 33.3 (31.6-35.5) g/dL RDW 12.8 (11.5-14.5) % Plt Count 276 (140-400) K/mcL MPV 10.9 (9.4-12.4) fL Immature Gran % 0.2 (0-4) % Seg Neutrophils % 83.8 % Lymphocytes % 8.8 % Monocytes % 4.2 % Eosinophils % 2.6 % Basophils % 0.4 % Neutrophils # 11.1 H (1.6-8.9) K/mcL Lymphocytes # 1.2 (0.6-4.6) K/mcL Monocytes # 0.6 (0.0-1.3) K/mcL Eosinophils # 0.4 (0.0-0.6) K/mcL Basophils # 0.1 (0.0-0.2) K/mcL PT 12.2 H (9.4-12.1) Seconds INR 1.1 APTT 28.7 (26.0-36.0) Seconds Sodium 137 (136-145) mEq/L Potassium 4.1 (3.5-5.1) mEq/L Chloride 103 (98-107) mEq/L Carbon Dioxide 21 L (23-29) mEq/L BUN 35 H (8-23) mg/dL Creatinine 1.08 (0.60-1.20) mg/dL Est GFR ( Amer) > 60 (> 60) Est GFR (Non-Af Amer) 51 L (> 60) BUN/Creatinine Ratio 32 H (6-26) Glucose 352 H (70-105) mg/dL Calculated Osmolality 306 H (280-300) Lactic Acid (0.5-2.2) mmol/L Calcium 9.1 (8.6-10.3) mg/dL Total Bilirubin 0.5 (0.3-1.0) mg/dL Direct Bilirubin 0.1 (0.0-0.2) mg/dL Indirect Bilirubin 0.4 (0.0-1.2) mg/dL AST 12 L (13-39) Units/L ALT 13 (7-52) Units/L Alkaline Phosphatase 55 (34-104) Units/L Troponin I < 0.03 (< 0.04) ng/mL Serum Total Protein 6.7 (6.4-8.9) g/dL Albumin 4.0 (3.5-5.7) g/dL Globulin 2.7 (2.4-3.5) g/dL Albumin/Globulin Ratio 1.5 (1.1-2.2) Triglycerides 177 H (< 150) mg/dL Cholesterol 131 (< 200) mg/dL LDL Cholesterol, Calc 56 (0-99) mg/dL VLDL Cholesterol, Calc 35 H (< 31) mg/dL HDL Cholesterol 40 (40-59) mg/dL Cholesterol/HDL Ratio 3.3 (0-4.9) Amylase 399 H (29-103) Units/L Lipase > 1800 H (11-82) Units/L Urine Color (Yellow) Urine Clarity (Clear) Urine pH (5.0-8.0) pH Units Ur Specific [place] (1.010-1.025) Urine Protein (Neg-Trace) mg/dL Urine Glucose (UA) (Normal) mg/dL Urine Ketones (Negative) mg/dL Urine Blood (Negative) Urine Nitrite (Negative) Urine Bilirubin (Negative) Urine Urobilinogen (Normal) mg/dL Ur Leukocyte Esterase (Negative) Ur Culture Indicated? (NO) 07/08/18 07/08/18 Range/Units 12:53 13:04 WBC (4.3-11.1) K/mcL RBC (3.82-4.97) M/mcL Hgb (11.5-15.4) g/dL Hct (35.3-44.9) % MCV (83.0-100.0) fL MCH (28.0-33.3) pg MCHC (31.6-35.5) g/dL RDW (11.5-14.5) % Plt Count (140-400) K/mcL MPV (9.4-12.4) fL Immature Gran % (0-4) % Seg Neutrophils % % Lymphocytes % % Monocytes % % Eosinophils % % Basophils % % Neutrophils # (1.6-8.9) K/mcL Lymphocytes # (0.6-4.6) K/mcL Monocytes # (0.0-1.3) K/mcL Eosinophils # (0.0-0.6) K/mcL Basophils # (0.0-0.2) K/mcL PT (9.4-12.1) Seconds INR APTT (26.0-36.0) Seconds Sodium (136-145) mEq/L Potassium (3.5-5.1) mEq/L Chloride (98-107) mEq/L Carbon Dioxide (23-29) mEq/L BUN (8-23) mg/dL Creatinine (0.60-1.20) mg/dL Est GFR ( Amer) (> 60) Est GFR (Non-Af Amer) (> 60) BUN/Creatinine Ratio (6-26) Glucose (70-105) mg/dL Calculated Osmolality (280-300) Lactic Acid 1.2 (0.5-2.2) mmol/L Calcium (8.6-10.3) mg/dL Total Bilirubin (0.3-1.0) mg/dL Direct Bilirubin (0.0-0.2) mg/dL Indirect Bilirubin (0.0-1.2) mg/dL AST (13-39) Units/L ALT (7-52) Units/L Alkaline Phosphatase (34-104) Units/L Troponin I (< 0.04) ng/mL Serum Total Protein (6.4-8.9) g/dL Albumin (3.5-5.7) g/dL Globulin (2.4-3.5) g/dL Albumin/Globulin Ratio (1.1-2.2) Triglycerides (< 150) mg/dL Cholesterol (< 200) mg/dL LDL Cholesterol, Calc (0-99) mg/dL VLDL Cholesterol, Calc (< 31) mg/dL HDL Cholesterol (40-59) mg/dL Cholesterol/HDL Ratio (0-4.9) Amylase (29-103) Units/L Lipase (11-82) Units/L Urine Color Yellow (Yellow) Urine Clarity Clear (Clear) Urine pH 6.0 (5.0-8.0) pH Units Ur Specific [place] 1.014 (1.010-1.025) Urine Protein Negative (Neg-Trace) mg/dL Urine Glucose (UA) 500 H (Normal) mg/dL Urine Ketones Negative (Negative) mg/dL Urine Blood Negative (Negative) Urine Nitrite Negative (Negative) Urine Bilirubin Negative (Negative) Urine Urobilinogen Normal (Normal) mg/dL Ur Leukocyte Esterase Negative (Negative) Ur Culture Indicated? NO (NO)
[2018-07-08 13:03] LABS: Basophils # 0.1 K/mcL (0.0-0.2); Basophils % 0.4 %; Eosinophils # 0.4 K/mcL (0.0-0.6); Eosinophils % 2.6 %; Hematocrit 36.6 % (35.3-44.9); Hemoglobin 12.2 g/dL (11.5-15.4); Immature Granulocytes % 0.2 % (0-4); Lymphocytes # 1.2 K/mcL (0.6-4.6); Lymphocytes % 8.8 %; Mean Corpuscular HGB Conc 33.3 g/dL (31.6-35.5); Mean Corpuscular Hemoglobin 29.9 pg (28.0-33.3); Mean Corpuscular Volume 89.7 fL (83.0-100.0); Mean Platelet Volume 10.9 fL (9.4-12.4); Monocytes # 0.6 K/mcL (0.0-1.3); Monocytes % 4.2 %; Neutrophils # 11.1 K/mcL (1.6-8.9); Platelet Count 276 K/mcL (140-400); Red Blood Count 4.08 M/mcL (3.82-4.97); Red Cell Distribution Width 12.8 % (11.5-14.5); Segmented Neutrophils % 83.8 %
[2018-07-08 13:28] LABS: INR 1.1; Prothrombin Time 12.2 Seconds (9.4-12.1)
[2018-07-08 13:30] LABS: Activated Partial Thrombo Time 28.7 Seconds (26.0-36.0)
[2018-07-08 13:45] LABS: Alanine Aminotransferase 13 Units/L (7-52); Albumin/Globulin Ratio 1.5 (1.1-2.2); Alkaline Phosphatase 55 Units/L (34-104); Amylase 399 Units/L (29-103); Aspartate Amino Transferase 12 Units/L (13-39); BUN/Creatinine Ratio 32 (6-26); Bilirubin,Direct 0.1 mg/dL (0.0-0.2); Bilirubin,Indirect 0.4 mg/dL (0.0-1.2); Bilirubin,Total 0.5 mg/dL (0.3-1.0); Blood Urea Nitrogen 35 mg/dL (8-23); Calcium 9.1 mg/dL (8.6-10.3); Carbon Dioxide 21 mEq/L (23-29); Chloride 103 mEq/L (98-107); Globulin 2.7 g/dL (2.4-3.5); Glucose 352 mg/dL (70-105); Lipase > 1800 Units/L (11-82); Osmolality,Calculated 306 (280-300); Potassium 4.1 mEq/L (3.5-5.1); Sodium 137 mEq/L (136-145); Total Protein 6.7 g/dL (6.4-8.9); Troponin I < 0.03 ng/mL (< 0.04); eGFR For Non-African Americans 51 (> 60)
[2018-07-08] MEDS ORDERED: Isovue-370 500 ML BOTTLE IVP ONE (13:50)
[2018-07-08 13:52] LABS: Bilirubin,Urine Negative (Negative); Blood,Urine Negative (Negative); Clarity,Urine Clear (Clear); Color,Urine Yellow (Yellow); Glucose,Urine (UA) 500 mg/dL (Normal); Ketones,Urine Negative (Negative); Leukocyte Esterase,Urine Negative (Negative); Nitrite,Urine Negative (Negative); Protein,Urine Negative (Neg-Trace); Specific Gravity,Urine 1.014 (1.010-1.025); Urobilinogen,Urine Normal (Normal)
[2018-07-08 14:14] LABS: Chol/HDL Ratio 3.3 (0-4.9); Cholesterol 131 mg/dL (< 200); HDL Cholesterol 40 mg/dL (40-59); LDL Cholesterol,Calculated 56 mg/dL (0-99); Triglycerides 177 mg/dL (< 150)
[2018-07-08] MEDS ORDERED: *HR* HYDROmorphone (PF) 1 MG/ML SYRINGE IVP ONE (14:42)
[2018-07-08] MEDS ORDERED: Piperacillin/Tazobactam 3.375 GM in Water for inj. (sterile) 20 ML 20 ML IVP ONE (14:56)
--- NOTE | 2018-07-08 14:58 | Emergency Department Note ---
Disposition Clinical Impression: Pancreatitis Qualifiers: Chronicity: acute Pancreatitis type: unspecified pancreatitis type Acute pancreatitis complication: unspecified Qualified Code(s): K85.90 - Acute pancreatitis without necrosis or infection, unspecified Disposition: Admitted As Inpatient Condition: Good Referrals: Carlo Acevedo DO [Primary Care Provider] - Forms: ED Satisfaction Letter, Work/School Release Time of Disposition: 14:58 General Adult HPI - General Chief complaint: ED Abdominal Pain Stated complaint: pancreatitis Time Seen by Provider: 07/08/18 12:33 Source: patient Limitations: no limitations - History of Present Illness Location: abdomen Pain Scale: 10 Quality: sharp Improves with: nothing Worsens with: nothing Associated symptoms: Reports: nausea/vomiting Treatments Prior to Arrival: none - Related Data Home Medications Medication Instructions Recorded Confirmed Insulin ASPART [Novolog Flexpen] 25 unit SQ TID 07/06/15 04/25/16 Insulin Glargine,Hum.rec.anlog 40 unit SQ BID 07/06/15 04/25/16 [Lantus Solostar] Lisinopril [Zestril] 20 mg PO QAM 07/06/15 04/25/16 Metformin HCl [Metformin ER 500 mg PO QPM 07/06/15 04/25/16 Gastric] raNITIdine HCl [Zantac] 150 mg PO BID 07/06/15 04/25/16 Carvedilol 12.5 mg PO BID 04/25/16 04/25/16 Furosemide [Lasix] 20 mg PO QAM 04/25/16 04/25/16 Levothyroxine [Synthroid] 100 mcg PO QAM 04/25/16 04/25/16 Marco A's Wort 300 mg PO BID 04/25/16 04/25/16 Previous Rx's Medication Instructions Recorded Albuterol Sulfate [Albuterol 2 puff IH Q4H #1 puff 04/27/16 Inhaler] Budesonide/Formoterol 80/4.5 1 puff IH Q12H #1 puff 04/27/16 [Symbicort 80/4.5] Meclizine [Antivert] 12.5 mg PO TID PRN #14 tablet 03/04/18 Allergies Allergy/AdvReac Type Severity Reaction Status Date / Time atorvastatin [From Lipitor] AdvReac Muscle Pain Verified 03/04/18 11:19 Constitutional: Denies: fever, chills Eyes: Denies: vision change Cardiovascular: Denies: chest pain Respiratory: Denies: cough, dyspnea Gastrointestinal: Reports: abdominal pain, nausea, vomiting. Denies: diarrhea, hematemesis, melena, hematochezia Genitourinary: Denies: dysuria Musculoskeletal: Denies: back pain Neurological: Denies: headache Past Medical History - Past Medical History Medical history: Reports: diabetes, hypertension, thyroid disease, valvular heart disease Surgical history: Reports: cholecystectomy, hysterectomy Psychiatric history: Reports: no psych history CHEMISTRY ASSOCIATE history: Reports: no CHEMISTRY ASSOCIATE history - Social History Smoking Status: Former smoker Smokeless Tobacco Status: No Alcohol use: Reports: none Drug use: Reports: none Physical Exam - General Limitations: no limitations General appearance: alert, in no apparent distress Course Vital Signs Temperature 97.4 F L 07/08/18 12:30 Pulse Rate 56 07/08/18 12:30 Respiratory Rate 22 07/08/18 12:30 Blood Pressure 160/84 07/08/18 12:30 O2 Sat by Pulse Oximetry 96 07/08/18 12:30 Temperature 97.4 F L 07/08/18 13:04 Pulse Rate 56 07/08/18 13:04 Respiratory Rate 22 07/08/18 13:04 Blood Pressure 160/84 07/08/18 13:04 O2 Sat by Pulse Oximetry 96 07/08/18 13:04 Oxygen Delivery Oxygen Delivery Room Air Medical Decision Making - Lab Data Result diagrams: 07/08/18 12:53 07/08/18 12:53 Lab Results 07/08/18 07/08/18 07/08/18 Range/Units 12:53 12:53 12:53 WBC 13.3 H (4.3-11.1) K/mcL RBC 4.08 (3.82-4.97) M/mcL Hgb 12.2 (11.5-15.4) g/dL Hct 36.6 (35.3-44.9) % MCV 89.7 (83.0-100.0) fL MCH 29.9 (28.0-33.3) pg MCHC 33.3 (31.6-35.5) g/dL RDW 12.8 (11.5-14.5) % Plt Count 276 (140-400) K/mcL MPV 10.9 (9.4-12.4) fL Immature Gran % 0.2 (0-4) % Seg Neutrophils % 83.8 % Lymphocytes % 8.8 % Monocytes % 4.2 % Eosinophils % 2.6 % Basophils % 0.4 % Neutrophils # 11.1 H (1.6-8.9) K/mcL Lymphocytes # 1.2 (0.6-4.6) K/mcL Monocytes # 0.6 (0.0-1.3) K/mcL Eosinophils # 0.4 (0.0-0.6) K/mcL Basophils # 0.1 (0.0-0.2) K/mcL PT 12.2 H (9.4-12.1) Seconds INR 1.1 APTT 28.7 (26.0-36.0) Seconds Sodium 137 (136-145) mEq/L Potassium 4.1 (3.5-5.1) mEq/L Chloride 103 (98-107) mEq/L Carbon Dioxide 21 L (23-29) mEq/L BUN 35 H (8-23) mg/dL Creatinine 1.08 (0.60-1.20) mg/dL Est GFR ( Amer) > 60 (> 60) Est GFR (Non-Af Amer) 51 L (> 60) BUN/Creatinine Ratio 32 H (6-26) Glucose 352 H (70-105) mg/dL Calculated Osmolality 306 H (280-300) Lactic Acid (0.5-2.2) mmol/L Calcium 9.1 (8.6-10.3) mg/dL Total Bilirubin 0.5 (0.3-1.0) mg/dL Direct Bilirubin 0.1 (0.0-0.2) mg/dL Indirect Bilirubin 0.4 (0.0-1.2) mg/dL AST 12 L (13-39) Units/L ALT 13 (7-52) Units/L Alkaline Phosphatase 55 (34-104) Units/L Troponin I < 0.03 (< 0.04) ng/mL Serum Total Protein 6.7 (6.4-8.9) g/dL Albumin 4.0 (3.5-5.7) g/dL Globulin 2.7 (2.4-3.5) g/dL Albumin/Globulin Ratio 1.5 (1.1-2.2) Triglycerides 177 H (< 150) mg/dL Cholesterol 131 (< 200) mg/dL LDL Cholesterol, Calc 56 (0-99) mg/dL VLDL Cholesterol, Calc 35 H (< 31) mg/dL HDL Cholesterol 40 (40-59) mg/dL Cholesterol/HDL Ratio 3.3 (0-4.9) Amylase 399 H (29-103) Units/L Lipase > 1800 H (11-82) Units/L Urine Color (Yellow) Urine Clarity (Clear) Urine pH (5.0-8.0) pH Units Ur Specific [place] (1.010-1.025) Urine Protein (Neg-Trace) mg/dL Urine Glucose (UA) (Normal) mg/dL Urine Ketones (Negative) mg/dL Urine Blood (Negative) Urine Nitrite (Negative) Urine Bilirubin (Negative) Urine Urobilinogen (Normal) mg/dL Ur Leukocyte Esterase (Negative) Ur Culture Indicated? (NO) 07/08/18 07/08/18 Range/Units 12:53 13:04 WBC (4.3-11.1) K/mcL RBC (3.82-4.97) M/mcL Hgb (11.5-15.4) g/dL Hct (35.3-44.9) % MCV (83.0-100.0) fL MCH (28.0-33.3) pg MCHC (31.6-35.5) g/dL RDW (11.5-14.5) % Plt Count (140-400) K/mcL MPV (9.4-12.4) fL Immature Gran % (0-4) % Seg Neutrophils % % Lymphocytes % % Monocytes % % Eosinophils % % Basophils % % Neutrophils # (1.6-8.9) K/mcL Lymphocytes # (0.6-4.6) K/mcL Monocytes # (0.0-1.3) K/mcL Eosinophils # (0.0-0.6) K/mcL Basophils # (0.0-0.2) K/mcL PT (9.4-12.1) Seconds INR APTT (26.0-36.0) Seconds Sodium (136-145) mEq/L Potassium (3.5-5.1) mEq/L Chloride (98-107) mEq/L Carbon Dioxide (23-29) mEq/L BUN (8-23) mg/dL Creatinine (0.60-1.20) mg/dL Est GFR ( Amer) (> 60) Est GFR (Non-Af Amer) (> 60) BUN/Creatinine Ratio (6-26) Glucose (70-105) mg/dL Calculated Osmolality (280-300) Lactic Acid 1.2 (0.5-2.2) mmol/L Calcium (8.6-10.3) mg/dL Total Bilirubin (0.3-1.0) mg/dL Direct Bilirubin (0.0-0.2) mg/dL Indirect Bilirubin (0.0-1.2) mg/dL AST (13-39) Units/L ALT (7-52) Units/L Alkaline Phosphatase (34-104) Units/L Troponin I (< 0.04) ng/mL Serum Total Protein (6.4-8.9) g/dL Albumin (3.5-5.7) g/dL Globulin (2.4-3.5) g/dL Albumin/Globulin Ratio (1.1-2.2) Triglycerides (< 150) mg/dL Cholesterol (< 200) mg/dL LDL Cholesterol, Calc (0-99) mg/dL VLDL Cholesterol, Calc (< 31) mg/dL HDL Cholesterol (40-59) mg/dL Cholesterol/HDL Ratio (0-4.9) Amylase (29-103) Units/L Lipase (11-82) Units/L Urine Color Yellow (Yellow) Urine Clarity Clear (Clear) Urine pH 6.0 (5.0-8.0) pH Units Ur Specific [place] 1.014 (1.010-1.025) Urine Protein Negative (Neg-Trace) mg/dL Urine Glucose (UA) 500 H (Normal) mg/dL Urine Ketones Negative (Negative) mg/dL Urine Blood Negative (Negative) Urine Nitrite Negative (Negative) Urine Bilirubin Negative (Negative) Urine Urobilinogen Normal (Normal) mg/dL Ur Leukocyte Esterase Negative (Negative) Ur Culture Indicated? NO (NO) Attestation Statement - Attestation Attestation: I examined this patient and my medical decision-making was reviewed with the Resident Physician. I agree with the documented findings, disposition and treatment plan as described except to the extent set forth below. 68 year old fmale presnets to the ED with copmlaints of pancreaitis and states she had an episode simiar yaers ago that was seoncdary to meications. patinet does have triglyceridemia and lipase/amylse are elevated and ct scan cofmrims pancreitis/duodenitis witho abscess formatio. WE will admit with pain contorl and to medicine
[2018-07-08] MEDS ORDERED: Piperacillin/Tazobactam 3.375 GM in 0.9 % Sodium Chloride Mini Bag 100 ML IVPB ONE (15:04)
[2018-07-08] MEDS ORDERED: *HR* Dextrose 50 % in Water (Syg) 50 ML SYRINGE IVP PRN (15:11)
[2018-07-08] MEDS ORDERED: Dextrose Gel 15 GM/37.5 ML TUBE PO PRN ×2 (15:11)
[2018-07-08] MEDS ORDERED: D5% in Water 1,000 ML IVC PRN (15:11)
[2018-07-08] MEDS ORDERED: Ondansetron 4 MG/2 ML VIAL IVP PRN (15:12)
[2018-07-08] MEDS ORDERED: Naloxone 0.4 MG/ML INJ IVP PRN (15:14)
--- NOTE | 2018-07-08 15:16 | Internal Med History&Physical ---
Date of Encounter: 07/08/18 Time of Encounter: 15:13 Internal Medicine - H&P: HPI Chief complaint: Abdominal pain Admitted From: Emergency Dept Plans for Post Hospital Care: Home History of present illness: Ms. Barraza is a 68 year old female with PMHx of hypothyroidism, Type 2 DM, obesity, fibromyalgia, hypertension, diastolic HF, mitral valve prolapse RAJENDRA on CPAP who presents with complaints of abdominal pain that started suddenly this morning with associated nausea and vomiting. She has not had PO today due to nausea and pain. Came in through the ED where she complained of abdominal pain that was 10 out of 10 in the epigastric area that was radiating to the back. She also felt the pain was radiating to her mid chest. EKG was unremarkable including and she was stable in the ED. Troponins were less than 0.03. She had laboratory workup that showed elevated lipase and amylase. Had a CT abdomen and pelvis which confirmed acute pancreatitis with some duodenitis. Talking to the patient, she denies any diarrhea, loose stools, fevers, chills. She says she was started on Treciba a few days ago by her primary care physician for uncontrolled diabetes. Over the last month or so she also has been dealing with some URI symptoms and was put initially on a Z-Manav course and symptoms did not improve much. About a week or so ago she was also put on Augmentin which she has taken 6 days off and only has one day left. She was also given a prescription for cough syrup with codeine. She says she started taking the cough syrup on . She has been taking it on a daily basis. Denies any headache, blurry vision, fevers, chills, diarrhea, constipation, urinary symptoms, or neurological symptoms. In the ED she was given a couple liters of normal saline, antiemetics, IV Dilaudid and her pain was down to 3/10. She was also given Zosyn for the mention duodenitis on the CT abdomen and pelvis. Past Med Surg Social Fam HX - Past Medical History Medical history: diabetes, hypertension, thyroid disease, valvular heart disease Additional medical history: MVP Psychiatric history: no psych history - Past Surgical History Surgical History: cholecystectomy, hysterectomy Additional surgical history: d&c - Social History Smoking Status: Former smoker Smokeless Tobacco Status: No Alcohol use: none Drug use: none - Family History Father Living Status: Hx Family Cardiac Disorders: Yes (HTN) Hx Family Respiratory Disorders: Yes (COPD, black lung) Hx Family Neurologic Disorders: Yes (Dementia) Brother Hx Family Cancer: Yes Mother Living Status: Hx Family Endocrine Disorder: Yes (DM) Hx Family Neurologic Disorders: Yes (stroke) Internal Medicine - H&P: Meds Insulin ASPART [Novolog Flexpen] 25 unit SQ TID 07/06/15 [History] Insulin Glargine,Hum.rec.anlog [Lantus Solostar] 40 unit SQ BID 07/06/15 [Histo ry] Lisinopril [Zestril] 20 mg PO QAM 07/06/15 [History] Metformin HCl [Metformin ER Gastric] 500 mg PO QPM 07/06/15 [History] raNITIdine HCl [Zantac] 150 mg PO BID 07/06/15 [History] Carvedilol 12.5 mg PO BID 04/25/16 [History] Furosemide [Lasix] 20 mg PO QAM 04/25/16 [History] Levothyroxine [Synthroid] 100 mcg PO QAM 04/25/16 [History] Marco A's Wort 300 mg PO BID 04/25/16 [History] Albuterol Sulfate [Albuterol Inhaler] 2 puff IH Q4H #1 puff 04/27/16 [Rx] Budesonide/Formoterol 80/4.5 [Symbicort 80/4.5] 1 puff IH Q12H #1 puff 04/27/16 [Rx] Meclizine [Antivert] 12.5 mg PO TID PRN #14 tablet 03/04/18 [Rx] Allergy/AdvReac Type Severity Reaction Status Date / Time atorvastatin [From Lipitor] AdvReac Muscle Pain Verified 03/04/18 11:19 All Systems PM: A 10-system review of systems was performed and is negative for pertinent fin dings except as documented above in the HPI. Review of systems: All systems reviewed are negative except for with warts mentioned above - Constitutional Vitals: Temp Pulse Resp BP Pulse Ox 97.4 F L 56 22 160/84 96 07/08/18 13:04 07/08/18 13:04 07/08/18 13:04 07/08/18 13:04 07/08/18 13:04 Exam: GEN: NAD HEENT: AT, NC, No cyanosis, oral mucosa is moist, No JVD Lymphatics: No lymphadenoapthy Eyes: Extrocular muscles intact, anicteric CVS:RRR. S1, S2, systolic murmur right and left 2nd ICS RESP: CTAB ABD: Soft, epigastric tenderness but no rebound, ND, +BS EXT: No edema, No rashes, 2+ DP NEURO: Nonfocal, CN II-XII intact, No focal motor or sensory deficits Psych: Cooperative, Not anxious or depressed Internal Med - H&P Results - Labs CBC & Chem 7: 07/08/18 12:53 07/08/18 12:53 Labs: Short CBC 07/08/18 Range/Units 12:53 WBC 13.3 H (4.3-11.1) K/mcL Hgb 12.2 (11.5-15.4) g/dL Hct 36.6 (35.3-44.9) % Plt Count 276 (140-400) K/mcL Neutrophils # 11.1 H (1.6-8.9) K/mcL BMP 07/08/18 12:53 Sodium 137 Potassium 4.1 Chloride 103 Carbon Dioxide 21 L BUN 35 H Creatinine 1.08 Glucose 352 H Calcium 9.1 Cardiac Enzymes 07/08/18 Range/Units 12:53 Troponin I < 0.03 (< 0.04) ng/mL Liver Function 07/08/18 Range/Units 12:53 Total Bilirubin 0.5 (0.3-1.0) mg/dL Direct Bilirubin 0.1 (0.0-0.2) mg/dL AST 12 L (13-39) Units/L ALT 13 (7-52) Units/L Alkaline Phosphatase 55 (34-104) Units/L Albumin 4.0 (3.5-5.7) g/dL Urine 07/08/18 Range/Units 13:04 Urine Color Yellow (Yellow) Urine Clarity Clear (Clear) Urine pH 6.0 (5.0-8.0) pH Units Ur Specific [place] 1.014 (1.010-1.025) Urine Protein Negative (Neg-Trace) mg/dL Urine Glucose (UA) 500 H (Normal) mg/dL - Impressions ITS Impressions Chest X-Ray 07/08/18 12:40 IMPRESSION: No evidence for acute cardiopulmonary process. D/ / Richard Dunn MD / Richard Dunn MD Interpreting Provider: Richard Dunn MD Abdomen/Pelvis CT 07/08/18 13:50 IMPRESSION: Peripancreatic fat stranding, especially about the head and neck of the pancreas. Mild duodenal wall thickening involving 2nd and 3rd duodenum. Differential considerations would include acute pancreatitis with secondary duodenitis or acute duodenitis with secondary pancreatitis. No evidence for bowel obstruction. No evidence for pancreatic necrosis, focal fluid collection or pancreatic ductal dilatation. Trace free fluid dependently within the pelvis, nonspecific but likely reactive relating to the upper abdominal acute process. D/ / 07/08/2018 14:43:55 [facility] / [facility] Interpreting Provider: Richard Dunn MD - Assessment and Plan (1) Acute pancreatitis Current Visit: Yes Status: Acute Assessment and plan: Will treat conservatively. Will not be too aggressive with IV fluids given history of diastolic HF. Received a couple of liters in the ED. Continue maintenance NS at 125 cc/hr. Antiemetics. Pain control. NPO for now. Possibly can try clears tomorrow. Likely culprit is codein in cough syrup. Lasix can cause it as well but she has been on lasix for a long time. Treciba is not one of the medications that stand out that can cause pancreatitis. No h/o alcohol use. Has had a cholecystectomy years ago due to gallstones. Qualifiers: Pancreatitis type: drug induced Acute pancreatitis complication: no infection or necrosis Qualified Code(s): K85.30 - Drug induced acute pancreatitis without necrosis or infection (2) Hypertension Current Visit: No Status: Acute Assessment and plan: Resume home meds Qualifiers: Hypertension type: essential hypertension Qualified Code(s): I10 - Essenti al (primary) hypertension (3) Diabetes mellitus, type II Current Visit: No Status: Chronic Assessment and plan: SSI. Accu-Cheks. Qualifiers: Diabetes mellitus nursing home insulin use: unspecified nursing home insulin use status Diabetes mellitus complication status: with unspecified complications Qualified Code(s): E11.8 - Type 2 diabetes mellitus with unspecified complications (4) Hypothyroidism Current Visit: No Status: Chronic Assessment and plan: Resume home synthroid Qualifiers: Hypothyroidism type: unspecified Qualified Code(s): E03.9 - Hypothyroidism, unspecified (5) RAJENDRA (obstructive sleep apnea) Current Visit: No Status: Chronic Assessment and plan: Home CPAP can be resumed here (6) DVT prophylaxis Current Visit: No Status: Acute Assessment and plan: heparin SQ - Time Spent With Patient Total time spent is greater than 50% in coordination of care (as documented) at patient's floor/unit and/or counseling patient:
[2018-07-08] MEDS: 0.9 % Sodium Chloride 1,000 ML IVC SCH (17:03)
[2018-07-08] MEDS: Insulin LISPRO 300 UNITS/3 ML VIAL SQ SCH (17:07)
[2018-07-08] MEDS: *HR* Morphine 2 MG/ML SYRINGE IVP PRN ×2 (17:25→22:23)
[2018-07-08] MEDS: *HR* HYDROcodone/Acet 5/325 mg TABLET PO PRN (20:05)
[2018-07-08] MEDS: *HR* Heparin 5,000 UNIT/ML VIAL SQ SCH (20:07)
[2018-07-09] MEDS: 0.9 % Sodium Chloride 1,000 ML IVC SCH ×4 (00:39→23:38)
[2018-07-09] MEDS: Insulin LISPRO 300 UNITS/3 ML VIAL SQ SCH ×4 (00:43→18:47)
[2018-07-09] MEDS ORDERED: *HR* HYDROcodone/Acet 5/325 mg TABLET PO ONE (00:44)
[2018-07-09] MEDS ORDERED: *HR* Promethazine 25 MG/ML VIAL IVP ONE (03:05)
[2018-07-09] MEDS: *HR* Morphine 2 MG/ML SYRINGE IVP PRN ×2 (03:18→09:07)
[2018-07-09 04:19] LABS: Basophils % 0.2 %; Eosinophils # 0.2 K/mcL (0.0-0.6); Eosinophils % 1.6 %; Hematocrit 35.4 % (35.3-44.9); Hemoglobin 11.9 g/dL (11.5-15.4); Immature Granulocytes % 0.4 % (0-4); Lymphocytes # 1.4 K/mcL (0.6-4.6); Lymphocytes % 12.1 %; Mean Corpuscular HGB Conc 33.6 g/dL (31.6-35.5); Mean Corpuscular Hemoglobin 30.2 pg (28.0-33.3); Mean Corpuscular Volume 89.8 fL (83.0-100.0); Mean Platelet Volume 11.1 fL (9.4-12.4); Monocytes # 0.8 K/mcL (0.0-1.3); Monocytes % 7.3 %; Neutrophils # 8.8 K/mcL (1.6-8.9); Platelet Count 232 K/mcL (140-400); Red Blood Count 3.94 M/mcL (3.82-4.97); Red Cell Distribution Width 13.1 % (11.5-14.5); Segmented Neutrophils % 78.4 %
[2018-07-09 04:39] LABS: Alanine Aminotransferase 11 Units/L (7-52); Albumin 3.7 g/dL (3.5-5.7); Albumin/Globulin Ratio 1.5 (1.1-2.2); Alkaline Phosphatase 49 Units/L (34-104); Aspartate Amino Transferase 17 Units/L (13-39); BUN/Creatinine Ratio 28 (6-26); Bilirubin,Total 0.6 mg/dL (0.3-1.0); Blood Urea Nitrogen 27 mg/dL (8-23); Calcium 8.5 mg/dL (8.6-10.3); Carbon Dioxide 23 mEq/L (23-29); Chloride 108 mEq/L (98-107); Globulin 2.4 g/dL (2.4-3.5); Glucose 214 mg/dL (70-105); Magnesium 1.4 mg/dL (1.6-2.6); Osmolality,Calculated 306 (280-300); Potassium 4.1 mEq/L (3.5-5.1); Sodium 142 mEq/L (136-145); Total Protein 6.1 g/dL (6.4-8.9); eGFR For Non-African Americans 57 (> 60)
[2018-07-09] MEDS: *HR* HYDROcodone/Acet 5/325 mg TABLET PO PRN ×2 (05:23→19:49)
[2018-07-09] MEDS: *HR* Heparin 5,000 UNIT/ML VIAL SQ SCH ×3 (05:26→20:24)
--- NOTE | 2018-07-09 08:14 | Internal Med Progress Note ---
Hospitalist Progress Note - Encounter Date of Encounter: 07/09/18 Time of Encounter: 09:00 - Subjective Interval History: Patient seen at bedside today She is still not feeling well with abdominal pain and nausea. She had one bout of vomiting last night She stated this was her 4th round of pancreatitits, it has been years since her last bout which they told her was caused by medications Medication changes lately have been treciba 3 days ago, 1 week of oral antibiotics, and codine cough medication ON admission had abdominal pain that was in the epigastric region that radiated to her back, felt this was nilay same pain she had in nilay past with pancreatitits, EKG unremarkable, troponins less than 0.03, elevated lipase [place] amylase CT abdomen and pelvis confirmed pancreatitis with duodenitis - Exam Vitals: Temp Pulse Resp BP Pulse Ox 98.5 F 76 16 179/71 91 07/09/18 07:39 07/09/18 07:39 07/09/18 07:39 07/09/18 07:39 07/09/18 07:39 Exam: General: mild distress, AAOx3, answers questions appropriately Cardio: RRR, no murmurs, rubs, gallops Resp: CTAB, no wheezing, rhonchi, rales Abd: diffuse tenderness, rebound and gaurding over epigastric region Extremities: warm, dry, no edema Skin: warm, dry, intact - Assessment and Plan (1) Acute pancreatitis Current Visit: Yes Status: Acute Assessment and Plan: Fluids d/c for now due to htn NPO Pain control culprit codeine cough syrup (2) Hypertension Current Visit: No Status: Acute Assessment and Plan: restart home medications hydralazine for PRN (3) Diabetes mellitus, type II Current Visit: No Status: Chronic Assessment and Plan: medium sliding scale insulin (4) Hypothyroidism Current Visit: No Status: Chronic Assessment and Plan: continue home synthroid (5) RAJENDRA (obstructive sleep apnea) Current Visit: No Status: Chronic Assessment and Plan: Continue home cpap (6) DVT prophylaxis Current Visit: No Status: Acute Assessment and Plan: heprin subq DVT Prophylaxis: subq heprain - Time Spent with Patient Total time spent is greater than 50% in coordination of care (as documented) at patient's floor/unit and/or counseling patient: Internal Medicine: Result - Labs CBC & Chem 7: 07/09/18 03:37 07/09/18 03:37 Labs: Short CBC 07/08/18 07/09/18 Range/Units 12:53 03:37 WBC 13.3 H 11.3 H (4.3-11.1) K/mcL Hgb 12.2 11.9 (11.5-15.4) g/dL Hct 36.6 35.4 (35.3-44.9) % Plt Count 276 232 (140-400) K/mcL Neutrophils # 11.1 H 8.8 (1.6-8.9) K/mcL BMP 07/08/18 07/09/18 12:53 03:37 Sodium 137 142 Potassium 4.1 4.1 Chloride 103 108 H Carbon Dioxide 21 L 23 BUN 35 H 27 H Creatinine 1.08 0.97 Glucose 352 H 214 H Calcium 9.1 8.5 L Cardiac Enzymes 07/08/18 Range/Units 12:53 Troponin I < 0.03 (< 0.04) ng/mL Liver Function 07/08/18 07/09/18 Range/Units 12:53 03:37 Total Bilirubin 0.5 0.6 (0.3-1.0) mg/dL Direct Bilirubin 0.1 (0.0-0.2) mg/dL AST 12 L 17 (13-39) Units/L ALT 13 11 (7-52) Units/L Alkaline Phosphatase 55 49 (34-104) Units/L Albumin 4.0 3.7 (3.5-5.7) g/dL Urine 07/08/18 Range/Units 13:04 Urine Color Yellow (Yellow) Urine Clarity Clear (Clear) Urine pH 6.0 (5.0-8.0) pH Units Ur Specific [place] 1.014 (1.010-1.025) Urine Protein Negative (Neg-Trace) mg/dL Urine Glucose (UA) 500 H (Normal) mg/dL - ABG Interpretation ABG results: PT/INR, D-dimer PT 12.2 Seconds (9.4-12.1) H 07/08/18 12:53 - Impressions Impressions Chest X-Ray 07/08/18 12:40 IMPRESSION: No evidence for acute cardiopulmonary process. D/ / Richard Dunn MD / Richard Dunn MD Interpreting Provider: Richard Dunn MD Abdomen/Pelvis CT 07/08/18 13:50 IMPRESSION: Peripancreatic fat stranding, especially about the head and neck of the pancreas. Mild duodenal wall thickening involving 2nd and 3rd duodenum. Differential considerations would include acute pancreatitis with secondary duodenitis or acute duodenitis with secondary pancreatitis. No evidence for bowel obstruction. No evidence for pancreatic necrosis, focal fluid collection or pancreatic ductal dilatation. Trace free fluid dependently within the pelvis, nonspecific but likely reactive relating to the upper abdominal acute process. D/ / 07/08/2018 14:43:55 Richard Dunn MD / [facility] Interpreting Provider: Richard Dunn MD Consult Discharge Plan - Plan Referrals: Carlo Acevedo DO [Primary Care Provider] - (2) Hypertension Qualifiers: Hypertension type: essential hypertension Qualified Code(s): I10 - Essential (primary) hypertension (3) Diabetes mellitus, type II Qualifiers: Diabetes mellitus manager intermediate insulin use: unspecified fdc insulin use status Diabetes mellitus complication status: with unspecified complications Qualified Code(s): E11.8 - Type 2 diabetes mellitus with unspecified complications (4) Hypothyroidism Qualifiers: Hypothyroidism type: unspecified Qualified Code(s): E03.9 - Hypothyroidism, unspecified
--- NOTE | 2018-07-09 08:21 | Event Note ---
Date of Encounter: 07/09/18 Time of Encounter: 08:16 Patient was seen and examined. I agree with the progress note as written by the resident physician. No acute events. Still in pain. One episode of vomiting last night. Afebrile. Admitted yesterday for acute pancreatitis. GEN: NAD CVS:RRR. S1, S2, systolic murmur right and left 2nd ICS RESP: CTAB ABD: Soft, epigastric tenderness but no rebound, ND, +BS EXT: No edema, No rashes, 2+ DP NEURO: Nonfocal Continue conservative measures. Not much improvement yet. Can only have ice chips. Likely pancreatitis with a medication with codeine cough syrup possible culprit. Continue home meds Replace magnesium
[2018-07-09 09:51] LABS: Estimated Average Glucose 266 mg/dl; Hemoglobin A1C 10.9 %
--- NOTE | 2018-07-09 10:19 | Electrocardiograph Report ---
[place] [id number] Test Date: 2018-07-08 Pat Name: Angelia Barraza Department: [id number] Room: 3A47 Gender: F Loaf Counter: : [id number] Requested By: Alexys Almaraz Order Number: [id number] Reading MD: Nicholas Shafer Measurements Intervals [place] Rate: 51 P: 71 TX: 158 QRS: -12 QRSD: 96 T: 22 QT: 442 QTc: 408 Interpretive Statements Sinus rhythm Low voltage, precordial leads Electronically Signed On 07-09-2018 10:18:11 EDT by Nicholas Shafer
[2018-07-09] MEDS ORDERED: *HR* Metoprolol 5 MG/5 ML VIAL IVP ONE (11:33)
[2018-07-09] MEDS ORDERED: OXYCODONE Oral CONC 10 MG/0.5 ML ORAL.SYG SL PRN (11:34)
[2018-07-09] MEDS: Lisinopril 20 MG TABLET PO SCH (11:45)
[2018-07-10] MEDS: Insulin LISPRO 300 UNITS/3 ML VIAL SQ SCH ×5 (00:47→20:27)
[2018-07-10] MEDS: 0.9 % Sodium Chloride 1,000 ML IVC SCH (01:43)
[2018-07-10] MEDS: *HR* HYDROcodone/Acet 5/325 mg TABLET PO PRN (01:43)
[2018-07-10] MEDS: *HR* Heparin 5,000 UNIT/ML VIAL SQ SCH ×3 (06:03→20:28)
[2018-07-10 07:39] LABS: Alanine Aminotransferase 9 Units/L (7-52); Albumin 3.2 g/dL (3.5-5.7); Albumin/Globulin Ratio 1.2 (1.1-2.2); Alkaline Phosphatase 48 Units/L (34-104); Aspartate Amino Transferase 14 Units/L (13-39); BUN/Creatinine Ratio 25 (6-26); Bilirubin,Total 0.7 mg/dL (0.3-1.0); Blood Urea Nitrogen 20 mg/dL (8-23); Calcium 7.8 mg/dL (8.6-10.3); Carbon Dioxide 23 mEq/L (23-29); Chloride 109 mEq/L (98-107); Globulin 2.7 g/dL (2.4-3.5); Glucose 179 mg/dL (70-105); Osmolality,Calculated 301 (280-300); Potassium 3.8 mEq/L (3.5-5.1); Sodium 142 mEq/L (136-145); Total Protein 5.9 g/dL (6.4-8.9); eGFR For Non-African Americans > 60 (> 60)
[2018-07-10] MEDS: Lisinopril 20 MG TABLET PO SCH (08:45)
--- NOTE | 2018-07-10 09:07 | Event Note ---
Date of Encounter: 07/10/18 Time of Encounter: 09:06 Patient was seen and examined. I agree with the progress note as written by the resident physician. No acute events. Feeling much better. Afebrile. Admitted yesterday for acute pancreatitis. On room air despite the fluids. GEN: NAD CVS:RRR. S1, S2, systolic murmur right and left 2nd ICS RESP: CTAB ABD: Soft, minimal epigastric tenderness but no rebound, ND, +BS EXT: No edema, No rashes, 2+ DP NEURO: Nonfocal Continue conservative measures. Improving Start clears Likely pancreatitis with a medication with codeine cough syrup possible culprit. Continue home meds Replace electrolytes as needed.
[2018-07-10 09:47] LABS: Basophils % 0.2 %; Eosinophils # 0.2 K/mcL (0.0-0.6); Eosinophils % 1.2 %; Hematocrit 35.3 % (35.3-44.9); Hemoglobin 11.4 g/dL (11.5-15.4); Immature Granulocytes % 0.5 % (0-4); Lymphocytes # 1.3 K/mcL (0.6-4.6); Lymphocytes % 8.9 %; Mean Corpuscular HGB Conc 32.3 g/dL (31.6-35.5); Mean Corpuscular Hemoglobin 29.8 pg (28.0-33.3); Mean Corpuscular Volume 92.2 fL (83.0-100.0); Mean Platelet Volume 10.8 fL (9.4-12.4); Monocytes # 1.3 K/mcL (0.0-1.3); Platelet Count 226 K/mcL (140-400); Red Blood Count 3.83 M/mcL (3.82-4.97); Red Cell Distribution Width 13.4 % (11.5-14.5); Segmented Neutrophils % 80.2 %
--- NOTE | 2018-07-10 10:26 | Internal Med Progress Note ---
Hospitalist Progress Note - Encounter Date of Encounter: 07/10/18 Time of Encounter: 08:10 - Subjective Interval History: Patient seen at bedside today She is is feeling better than yesterday with only some nausea, no vomiting. Abdominal pain has decreased substantially. Denies chest pain, does states she is slightly short of breath. Nurse brought up that patient has been having pink urine and patient does state she has had some burning with urination. She stated this was her 4th round of pancreatitits, it has been years since her last bout which they told her was caused by medications Medication changes lately have been treciba 3 days ago, 1 week of oral antibiotics, and codine cough medication ON admission had abdominal pain that was in the epigastric region that radiated to her back, felt this was nilay same pain she had in nilay past with pancreatitits, EKG unremarkable, troponins less than 0.03, elevated lipase [place] amylase CT abdomen and pelvis confirmed pancreatitis with duodenitis - Exam Vitals: Temp Pulse Resp BP Pulse Ox 99.2 F 80 22 134/73 92 07/10/18 04:19 07/10/18 08:42 07/10/18 08:42 07/10/18 08:42 07/10/18 08:59 Exam: General: mild distress, AAOx3, answers questions appropriately Cardio: RRR, no murmurs, rubs, gallops Resp: some wheezing noted in lower lobes, no rhonchi or rales Abd: diffuse tenderness, rebound and gaurding over epigastric region Extremities: warm, dry, no edema Skin: warm, dry, intact - Assessment and Plan (1) Acute pancreatitis Current Visit: Yes Status: Acute Assessment and Plan: Start clear liquid diet today as tolerated Continue with pain medications as needed Culprit for this bout of pancreatitis could be the codeine in recent cough medication which does have a high chance of causing pancreatitis (2) Hypertension Current Visit: No Status: Acute Assessment and Plan: home blood pressure medications restarted (3) Diabetes mellitus, type II Current Visit: No Status: Chronic Assessment and Plan: patient is on a medium dose sliding scale insulin may need to add basal insulin now that patient is able to eat continue to monitor with accuchecks mornign adn 2 horus after meals (4) Hypothyroidism Current Visit: No Status: Chronic Assessment and Plan: continue home dose of synthroid (5) RAJENDRA (obstructive sleep apnea) Current Visit: No Status: Chronic Assessment and Plan: Use of CPAP at night (6) DVT prophylaxis Current Visit: No Status: Acute Assessment and Plan: subq heparin (7) Burning with urination Current Visit: Yes Status: Acute Assessment and Plan: Patient reports pink colored urine Burning with urination Denies suprapubic pain UA ordered awaiting results (8) COPD (chronic obstructive pulmonary disease) Current Visit: Yes Status: Chronic Assessment and Plan: restart symbacort duonebs if needed 2L nasal cannula as needed for O2 saturation to stay above 90% DVT Prophylaxis: subq heparin - Time Spent with Patient Total time spent is greater than 50% in coordination of care (as documented) at patient's floor/unit and/or counseling patient: Plan of Care Discussed with: patient Internal Medicine: Result - Labs CBC & Chem 7: 07/10/18 09:16 07/10/18 06:24 Labs: Short CBC 07/10/18 Range/Units 09:16 WBC 15.0 H (4.3-11.1) K/mcL Hgb 11.4 L (11.5-15.4) g/dL Hct 35.3 (35.3-44.9) % Plt Count 226 (140-400) K/mcL Neutrophils # 12.0 H (1.6-8.9) K/mcL BMP 07/10/18 06:24 Sodium 142 Potassium 3.8 Chloride 109 H Carbon Dioxide 23 BUN 20 Creatinine 0.81 Glucose 179 H Calcium 7.8 L Liver Function 07/10/18 Range/Units 06:24 Total Bilirubin 0.7 (0.3-1.0) mg/dL AST 14 (13-39) Units/L ALT 9 (7-52) Units/L Alkaline Phosphatase 48 (34-104) Units/L Albumin 3.2 L (3.5-5.7) g/dL - ABG Interpretation ABG results: PT/INR, D-dimer PT 12.2 Seconds (9.4-12.1) H 07/08/18 12:53 Consult Discharge Plan - Plan Referrals: Carlo Acevedo DO [Primary Care Provider] - (1) Acute pancreatitis Qualifiers: Pancreatitis type: drug induced Acute pancreatitis complication: no infection or necrosis Qualified Code(s): K85.30 - Drug induced acute pancreatitis without necrosis or infection (2) Hypertension Qualifiers: Hypertension type: essential hypertension Qualified Code(s): I10 - Essential (primary) hypertension (3) Diabetes mellitus, type II Qualifiers: Diabetes mellitus long term care administrator insulin use: unspecified senior care insulin use status Diabetes mellitus complication status: with unspecified complications Qualified Code(s): E11.8 - Type 2 diabetes mellitus with unspecified complications (4) Hypothyroidism Qualifiers: Hypothyroidism type: unspecified Qualified Code(s): E03.9 - Hypothyroidism, unspecified (8) COPD (chronic obstructive pulmonary disease) Qualifiers: COPD type: unspecified COPD Qualified Code(s): J44.9 - Chronic obstructive pulmonary disease, unspecified
[2018-07-10] MEDS: Budesonide/Formoterol 80/4.5 MDI IH SCH ×2 (10:47→19:42)
[2018-07-10] MEDS: Famotidine 20 MG TABLET PO SCH ×2 (11:58→20:27)
[2018-07-10] MEDS: Acetaminophen 325 MG TABLET PO PRN ×2 (13:15→23:27)
[2018-07-10 16:11] LABS: Bilirubin,Urine Small (Negative); Blood,Urine Moderate (Negative); Clarity,Urine Clear (Clear); Color,Urine Dark Yellow (Yellow); Glucose,Urine (UA) >=1000 mg/dL (Normal); Ketones,Urine Trace mg/dL (Negative); Leukocyte Esterase,Urine Negative (Negative); Nitrite,Urine Negative (Negative); PH,Urine 5.5 pH Units (5.0-8.0); Protein,Urine 100 mg/dL (Neg-Trace); Specific Gravity,Urine > 1.030 (1.010-1.025); Urobilinogen,Urine Normal (Normal)
[2018-07-10 17:13] LABS: Amorphous Sediment,Urine Few (Few); Bacteria,Urine Few per hpf (None-Few); Squamous Epithelial Cell,Urine Few per lpf (None-Few); WBC,Urine 0-3 per hpf (0-3)
[2018-07-10] MEDS: Menthol 9.1 MG LOZENGE PO PRN (20:28)
[2018-07-11] MEDS: *HR* HYDROcodone/Acet 5/325 mg TABLET PO PRN ×2 (02:22→14:04)
[2018-07-11] MEDS: Menthol 9.1 MG LOZENGE PO PRN ×2 (02:25→05:37)
[2018-07-11 04:10] LABS: Basophils % 0.2 %; Eosinophils # 0.2 K/mcL (0.0-0.6); Eosinophils % 2.2 %; Hematocrit 29.3 % (35.3-44.9); Immature Granulocytes % 0.5 % (0-4); Lymphocytes # 1.2 K/mcL (0.6-4.6); Lymphocytes % 10.5 %; Mean Corpuscular HGB Conc 32.1 g/dL (31.6-35.5); Mean Corpuscular Hemoglobin 29.4 pg (28.0-33.3); Mean Corpuscular Volume 91.6 fL (83.0-100.0); Mean Platelet Volume 10.9 fL (9.4-12.4); Monocytes # 1.2 K/mcL (0.0-1.3); Monocytes % 10.9 %; Neutrophils # 8.3 K/mcL (1.6-8.9); Platelet Count 189 K/mcL (140-400); Red Cell Distribution Width 13.3 % (11.5-14.5); Segmented Neutrophils % 75.7 %
[2018-07-11 04:11] LABS: Hemoglobin 9.4 g/dL (11.5-15.4)
[2018-07-11 04:30] LABS: BUN/Creatinine Ratio 25 (6-26); Blood Urea Nitrogen 18 mg/dL (8-23); Calcium 7.4 mg/dL (8.6-10.3); Carbon Dioxide 21 mEq/L (23-29); Chloride 108 mEq/L (98-107); Glucose 203 mg/dL (70-105); Osmolality,Calculated 294 (280-300); Potassium 3.8 mEq/L (3.5-5.1); Sodium 138 mEq/L (136-145); eGFR For Non-African Americans > 60 (> 60)
[2018-07-11] MEDS: *HR* Heparin 5,000 UNIT/ML VIAL SQ SCH ×3 (05:34→21:48)
[2018-07-11] MEDS: Acetaminophen 325 MG TABLET PO PRN (05:36)
[2018-07-11] MEDS: Budesonide/Formoterol 80/4.5 MDI IH SCH ×2 (07:34→20:03)
[2018-07-11] MEDS: Famotidine 20 MG TABLET PO SCH ×2 (08:10→21:47)
[2018-07-11] MEDS: Lisinopril 20 MG TABLET PO SCH (08:10)
[2018-07-11] MEDS: Insulin LISPRO 300 UNITS/3 ML VIAL SQ SCH ×4 (08:10→21:40)
--- NOTE | 2018-07-11 08:51 | Internal Med Progress Note ---
<Rosa Romero - Last Filed: 07/11/18 14:17> Hospitalist Progress Note - Encounter Date of Encounter: 07/11/18 Time of Encounter: 08:48 - Subjective Interval History: 68-year-old female with past medical history of recurrent pancreatitis, with last episode years ago caused by medications that have since been discontinued. Recent medication change of antibiotics and coding cough medication. Admitted for acute pancreatitis. Upon examination of the patient today she is alert and oriented times 3 and no acute distress. She reported that she is feeling even better today than yesterday. She states that her abdomen is only minimally tender. She did not tolerated clear liquid diet for lunch or dinner yesterday as it made her nauseous and she did not have an appetite. She reported that she became short of breath yesterday and be placed on oxygen. She had dysuria and pink tinged urine yesterday and continues to have left flank tenderness. She denied fever, chills, chest pain. - Exam Vitals: Temp Pulse Resp BP Pulse Ox 97.6 F 68 16 144/66 95 07/11/18 06:52 07/11/18 06:52 07/11/18 07:34 07/11/18 06:52 07/11/18 07:34 Exam: Gen.: Vitals noted. No acute distress. AAOx3 HEENT: oropharynx clear, Normocephalic, atraumatic Neck: Supple. No adenopathy. Cardiac: RRR, no murmur, +S1/S2 Pulmonary: minimal rales bilaterally, no wheezes, or rhonchi, equal chest expansion Abdomen: soft, minimal epigastric tender, Bowel sounds noted, no guarding Back: left CVA flank tenderness MSK: ROM intact, no joint swelling noted Extremities: no BLE edema, nontender calf, no cyanosis or clubbing Neuro: A&Ox3, moves all extremities, no focal deficits Psych: Appropriate mood and behavior - Assessment and Plan (1) Acute pancreatitis Current Visit: Yes Status: Acute Assessment and Plan: Acute pancreatitis -patient with 3 prior acute pancreatitis hospitalizations -etiology has been determined however may be secondary to recent codeine use for cough. Prior acute pancreatitis was secondary to the blood pressure medication that had been stopped according to the patient. -abdominal CT demonstrating [place] pancreatic fat stranding especially around the head and neck of the pancreas. Mild duodenal wall thickening involving 2nd and 3rd duodenum. -Afebrile -WBC 11 (15) -lipase > 1800 on admission, amylase 399 -calcium and triglycerides not elevated Plan: -patient stated she cannot tolerate clear liquid diet very well yesterday as it made her nauseous. Epigastric pain improving -will continue with clear liquid diet today and encouraged her to be cautious with eating -will continue pain medication management -will continue supportive care as she is improving (2) Diabetes mellitus, type II Current Visit: No Status: Chronic Assessment and Plan: History of diabetes taking insulin -glucose controlled -continue meeting dose sliding scale insulin -continue Accu checks -diabetic diet when able (3) Hypertension Current Visit: No Status: Acute Assessment and Plan: History of hypertension taking carvedilol, lisinopril -blood pressure stable -continue home BP meds (4) Hypothyroidism Current Visit: No Status: Chronic Assessment and Plan: History of hyperthyroidism taking levothyroxine -continue home medication (5) RAJENDRA (obstructive sleep apnea) Current Visit: No Status: Chronic Assessment and Plan: History of RAJENDRA using a CPAP at night -continue CPAP at bedtime (6) DVT prophylaxis Current Visit: No Status: Acute Assessment and Plan: Heparin SQ (7) Left flank pain Current Visit: Yes Status: Acute Assessment and Plan: Patient reports having left flank pain that started 2 nights ago. She additionally has had dysuria and pink tinged urine. -Concerning for nephrolithiasis in left kidney. She has never had a kidney stone. However do the symptoms and physical exam this is concerning. Her son has recently been treated for removal of a kidney stone. -Urinalysis showing moderate amount of blood and RBCs -left flank tenderness on physical exam -abdominal CT on admission did not show acute process surrounding kidneys Plan: -will continue IV fluids -pain management -Flomax -retroperitoneal u/s -may have the patient follow-up with urology outpatient - Time Spent with Patient Total time spent is greater than 50% in coordination of care (as documented) at patient's floor/unit and/or counseling patient: Internal Medicine: Result - Labs CBC & Chem 7: 07/11/18 03:57 07/11/18 03:57 Labs: Short CBC 07/10/18 07/11/18 Range/Units 09:16 03:57 WBC 15.0 H 11.0 (4.3-11.1) K/mcL Hgb 11.4 L 9.4 L D (11.5-15.4) g/dL Hct 35.3 29.3 L (35.3-44.9) % Plt Count 226 189 (140-400) K/mcL Neutrophils # 12.0 H 8.3 (1.6-8.9) K/mcL BMP 07/11/18 03:57 Sodium 138 Potassium 3.8 Chloride 108 H Carbon Dioxide 21 L BUN 18 Creatinine 0.73 Glucose 203 H Calcium 7.4 L Urine 07/10/18 Range/Units 15:50 Urine Color Dark Yellow (Yellow) Urine Clarity Clear (Clear) Urine pH 5.5 (5.0-8.0) pH Units Ur Specific [place] > 1.030 H (1.010-1.025) Urine Protein 100 H (Neg-Trace) mg/dL Urine Glucose (UA) >=1000 H (Normal) mg/dL - ABG Interpretation ABG results: PT/INR, D-dimer PT 12.2 Seconds (9.4-12.1) H 07/08/18 12:53 Consult Discharge Plan - Plan Referrals: Carlo Acevedo DO [Primary Care Provider] - <Hai Killian - Last Filed: 07/11/18 15:28> Hospitalist Progress Note - Encounter Date of Encounter: 07/11/18 - Exam Vitals: Temp Pulse Resp BP Pulse Ox 97.6 F 71 16 150/54 96 07/11/18 10:39 07/11/18 10:39 07/11/18 10:39 07/11/18 10:39 07/11/18 10:39 - Assessment and Plan (1) Hypothyroidism Current Visit: No Status: Chronic (2) DVT prophylaxis Current Visit: No Status: Acute (3) Diabetes mellitus, type II Current Visit: No Status: Chronic (4) Hypertension Current Visit: No Status: Chronic (5) RAJENDRA (obstructive sleep apnea) Current Visit: No Status: Chronic (6) Acute pancreatitis Current Visit: Yes Status: Acute (7) Left flank pain Current Visit: Yes Status: Acute (8) COPD (chronic obstructive pulmonary disease) Current Visit: Yes Status: Chronic (9) Morbid obesity with BMI of 40.0-44.9, adult Current Visit: Yes Status: Chronic - Time Spent with Patient Total time spent is greater than 50% in coordination of care (as documented) at patient's floor/unit and/or counseling patient: Internal Medicine: Result - Labs CBC & Chem 7: 07/11/18 03:57 07/11/18 03:57 Labs: Short CBC 07/11/18 Range/Units 03:57 WBC 11.0 (4.3-11.1) K/mcL Hgb 9.4 L D (11.5-15.4) g/dL Hct 29.3 L (35.3-44.9) % Plt Count 189 (140-400) K/mcL Neutrophils # 8.3 (1.6-8.9) K/mcL BMP 07/11/18 03:57 Sodium 138 Potassium 3.8 Chloride 108 H Carbon Dioxide 21 L BUN 18 Creatinine 0.73 Glucose 203 H Calcium 7.4 L Urine 07/10/18 Range/Units 15:50 Urine Color Dark Yellow (Yellow) Urine Clarity Clear (Clear) Urine pH 5.5 (5.0-8.0) pH Units Ur Specific [place] > 1.030 H (1.010-1.025) Urine Protein 100 H (Neg-Trace) mg/dL Urine Glucose (UA) >=1000 H (Normal) mg/dL - ABG Interpretation ABG results: PT/INR, D-dimer PT 12.2 Seconds (9.4-12.1) H 07/08/18 12:53 - Attending Attestation I examined this patient and my medical decision-making was reviewed with the Resident Physician on 07/11/18. I agree with the documented findings, disposition and treatment plan as described except to the extent set forth below. Ms Barraza is currently admitted for acute pancreatitis. She remains moderate to high risk due to potential for worsening clinical status. Ms Barraza is having some L flank discomfort. Pain radiates around to front. No fever or chills. Upper abdomen feels somewhat better. No able to eat much though. Exam Alert Comfortable Mucus membranes dry Heart reg. Not tachy Rales heard both bases. Abd soft - some discomfort in epigastric area. Tender L flank area as well. Moves all extremities I/P 1. Acute pancreatitis - slowly improving. Continue clear liquids at this time 2. L flank pain/abd pain - ? kidney stone. Will check ultrasound to eval for any other situation 3. DM - controlled 4. HTN - controlled 5. Hypothyroid 6. RAJENDRA Further diagnoses and plan as above. <RomeroRosa - Last Filed: 07/11/18 14:17> (1) Acute pancreatitis Qualifiers: Pancreatitis type: drug induced Acute pancreatitis complication: no infection or necrosis Qualified Code(s): K85.30 - Drug induced acute pancreatitis without necrosis or infection (2) Diabetes mellitus, type II Qualifiers: Diabetes mellitus shelter insulin use: unspecified shelter insulin use status Diabetes mellitus complication status: with unspecified complications Qualified Code(s): E11.8 - Type 2 diabetes mellitus with unspecified complications; Z79.4 - terminal make up operator (current) use of insulin (3) Hypertension Qualifiers: Hypertension type: essential hypertension Qualified Code(s): I10 - Essential (primary) hypertension (4) Hypothyroidism Qualifiers: Hypothyroidism type: unspecified Qualified Code(s): E03.9 - Hypothyroidism, unspecified <Hai Killian Bj - Last Filed: 07/11/18 15:28> (1) Hypothyroidism Qualifiers: Hypothyroidism type: acquired Qualified Code(s): E03.9 - Hypothyroidism, unspecified (3) Diabetes mellitus, type II Qualifiers: Diabetes mellitus shelter insulin use: with shelter use Diabetes mellitus complication status: without complication Qualified Code(s): E11.9 - Type 2 diabetes mellitus without complications; Z79.4 - terminal make up operator (current) use of insulin (4) Hypertension Qualifiers: Hypertension type: essential hypertension Qualified Code(s): I10 - Essential (primary) hypertension (6) Acute pancreatitis Qualifiers: Pancreatitis type: drug induced Acute pancreatitis complication: no infection or necrosis Qualified Code(s): K85.30 - Drug induced acute pancreatitis without necrosis or infection (8) COPD (chronic obstructive pulmonary disease) Qualifiers: COPD type: unspecified COPD Qualified Code(s): J44.9 - Chronic obstructive pulmonary disease, unspecified
[2018-07-11] MEDS ORDERED: 0.9 % Sodium Chloride 1,000 ML IVC SCH (09:15)
[2018-07-11] MEDS: OXYCODONE Oral CONC 10 MG/0.5 ML ORAL.SYG SL PRN (10:51)
[2018-07-11] MEDS ORDERED: NON-FORMULARY MEDICATION 1 EACH EACH (Ranitidine Hcl [Zantac] 150 MG) PO SCH (21:00)
[2018-07-12] MEDS: *HR* HYDROcodone/Acet 5/325 mg TABLET PO PRN ×3 (00:13→21:09)
[2018-07-12 04:28] LABS: Basophils % 0.3 %; Eosinophils # 0.4 K/mcL (0.0-0.6); Eosinophils % 3.6 %; Hematocrit 28.9 % (35.3-44.9); Hemoglobin 9.2 g/dL (11.5-15.4); Immature Granulocytes % 0.8 % (0-4); Immature Platelets 3.9 % (1.1-6.1); Lymphocytes % 10.6 %; Mean Corpuscular HGB Conc 31.8 g/dL (31.6-35.5); Mean Corpuscular Hemoglobin 29.4 pg (28.0-33.3); Mean Corpuscular Volume 92.3 fL (83.0-100.0); Mean Platelet Volume 10.8 fL (9.4-12.4); Monocytes # 1.1 K/mcL (0.0-1.3); Monocytes % 11.1 %; Neutrophils # 7.1 K/mcL (1.6-8.9); Platelet Count 212 K/mcL (140-400); Red Blood Count 3.13 M/mcL (3.82-4.97); Red Cell Distribution Width 13.2 % (11.5-14.5); Segmented Neutrophils % 73.6 %
[2018-07-12 04:44] LABS: BUN/Creatinine Ratio 18 (6-26); Blood Urea Nitrogen 12 mg/dL (8-23); Calcium 7.9 mg/dL (8.6-10.3); Carbon Dioxide 21 mEq/L (23-29); Chloride 105 mEq/L (98-107); Glucose 174 mg/dL (70-105); Osmolality,Calculated 288 (280-300); Potassium 3.8 mEq/L (3.5-5.1); Sodium 137 mEq/L (136-145); eGFR For Non-African Americans > 60 (> 60)
[2018-07-12] MEDS: *HR* Heparin 5,000 UNIT/ML VIAL SQ SCH ×3 (05:59→21:09)
[2018-07-12] MEDS: Budesonide/Formoterol 80/4.5 MDI IH SCH ×2 (07:30→21:19)
[2018-07-12] MEDS: Insulin LISPRO 300 UNITS/3 ML VIAL SQ SCH ×4 (08:39→21:09)
[2018-07-12] MEDS: Fenofibrate 54 MG TABLET PO SCH (08:39)
[2018-07-12] MEDS: Famotidine 20 MG TABLET PO SCH ×2 (08:40→21:09)
[2018-07-12] MEDS: Lisinopril 20 MG TABLET PO SCH (08:40)
[2018-07-12] MEDS: Isosorbide MONOnitrate (24 HR) 30 MG TAB.ER.24H PO SCH (08:40)
--- NOTE | 2018-07-12 12:59 | Discharge Summary ---
Date of Encounter: 07/13/18 Time of Encounter: 12:59 - Discharge Diagnosis (1) Acute pancreatitis Status: Acute Qualifiers: Pancreatitis type: drug induced Acute pancreatitis complication: no infection or necrosis Qualified Code(s): K85.30 - Drug induced acute pancreatitis without necrosis or infection (2) Hypertension Status: Chronic Qualifiers: Hypertension type: essential hypertension Qualified Code(s): I10 - Essential (primary) hypertension (3) Diabetes mellitus, type II Status: Chronic Qualifiers: Diabetes mellitus longterm insulin use: with longterm use Diabetes mellitus complication status: without complication Qualified Code(s): E11.9 - Type 2 diabetes mellitus without complications; Z79.4 - FPC (current) use of insulin (4) Hypothyroidism Status: Chronic Qualifiers: Hypothyroidism type: acquired Qualified Code(s): E03.9 - Hypothyroidism, unspecified (5) RAJENDRA (obstructive sleep apnea) Status: Chronic (6) DVT prophylaxis Status: Acute (7) Burning with urination Status: Acute (8) COPD (chronic obstructive pulmonary disease) Status: Chronic Qualifiers: COPD type: unspecified COPD Qualified Code(s): J44.9 - Chronic obstructive pulmonary disease, unspecified Hospital course: Ms. Barraza is a 68 year old female - Time Spent with Patient Total time spent providing and/or coordinating discharge services: - Discharge Medications Prescriptions: No Action RX: Lisinopril [Zestril] 40 mg PO QAM RX: raNITIdine HCl [Zantac] 150 mg PO BID RX: Metformin HCl [Metformin ER Gastric] 500 mg PO BID RX: Insulin ASPART [Novolog Flexpen] 15 unit SQ TIDWM RX: Furosemide [Lasix] 20 mg PO QAM RX: Carvedilol 12.5 mg PO BID RX: [place] Wort 300 mg PO BID Budesonide/Formoterol 80/4.5 [Symbicort 80/4.5] 1 puff IH Q12H #1 puff RX: Levothyroxine [Synthroid] 125 mcg PO DAILY Insulin Degludec [Tresiba] 30 unit SQ HS Albuterol Sulfate [Albuterol Inhaler] 2 puff IH Q4H PRN PRN Reason: Shortness Of Breath Rosuvastatin Calcium [Crestor] 20 mg PO DAILY Isosorbide MONOnitrate (24 HR) [Imdur] 30 mg PO DAILY RX: Fenofibrate [Tricor] 54 mg PO DAILY Home Medications: RX: Insulin ASPART [Novolog Flexpen] 15 unit SQ TIDWM 07/06/15 [History] RX: Lisinopril [Zestril] 40 mg PO QAM 07/06/15 [History] RX: Metformin HCl [Metformin ER Gastric] 500 mg PO BID 07/06/15 [History] RX: raNITIdine HCl [Zantac] 150 mg PO BID 07/06/15 [History] RX: Carvedilol 12.5 mg PO BID 04/25/16 [History] RX: Furosemide [Lasix] 20 mg PO QAM 04/25/16 [History] RX: [place] Wort 300 mg PO BID 04/25/16 [History] Budesonide/Formoterol 80/4.5 [Symbicort 80/4.5] 1 puff IH Q12H #1 puff 04/27/16 [Rx] Albuterol Sulfate [Albuterol Inhaler] 2 puff IH Q4H PRN 07/09/18 [History] Insulin Degludec [Tresiba] 30 unit SQ HS 07/09/18 [History] Isosorbide MONOnitrate (24 HR) [Imdur] 30 mg PO DAILY 07/09/18 [History] RX: Fenofibrate [Tricor] 54 mg PO DAILY 07/09/18 [History] RX: Levothyroxine [Synthroid] 125 mcg PO DAILY 07/09/18 [History] Rosuvastatin Calcium [Crestor] 20 mg PO DAILY 07/09/18 [History] Allergies/Adverse Reactions: Allergy/AdvReac Type Severity Reaction Status Date / Time atorvastatin [From Lipitor] AdvReac Muscle Pain Verified 03/04/18 11:19 Date of admission: 07/08/18 15:41 Primary care physician: Carlo Acevedo DO Consults: 07/08/18 15:12 Consult to Physical Therapy [CONS] Routine Comment: Evaluate, develop and implement POC Reason for Consult: PT eval Does patient have active BEDREST order?: No Is patient medically & hemodynamically stable?: Yes 07/10/18 12:17 Consult to Invasive Line Access Team [CONS] Routine Reason for Consult: poor vascular access, failed attempt with vienviewer Line Type: EPIV - Constitutional Vitals: Temp Pulse Resp BP Pulse Ox 98.5 F 77 20 116/56 97 07/12/18 11:14 07/12/18 11:14 07/12/18 11:14 07/12/18 11:14 07/12/18 11:14 - Patient Status Condition: Good - Discharge Instructions Follow Up With: Carlo Acevedo DO [Primary Care Provider] -
--- NOTE | 2018-07-12 15:45 | Internal Med Progress Note ---
<Hai Killian - Last Filed: 07/12/18 16:00> Hospitalist Progress Note - Encounter Date of Encounter: 07/12/18 - Exam Vitals: Temp Pulse Resp BP Pulse Ox 98.1 F 67 17 135/55 100 07/12/18 15:31 07/12/18 15:31 07/12/18 15:31 07/12/18 15:31 07/12/18 15:31 - Assessment and Plan (1) Hypothyroidism Current Visit: No Status: Chronic (2) DVT prophylaxis Current Visit: No Status: Acute (3) Diabetes mellitus, type II Current Visit: No Status: Chronic (4) Hypertension Current Visit: No Status: Chronic (5) RAJENDRA (obstructive sleep apnea) Current Visit: No Status: Chronic (6) Acute pancreatitis Current Visit: Yes Status: Acute (7) Left flank pain Current Visit: Yes Status: Acute (8) COPD (chronic obstructive pulmonary disease) Current Visit: Yes Status: Chronic (9) Morbid obesity with BMI of 40.0-44.9, adult Current Visit: Yes Status: Chronic - Time Spent with Patient Total time spent is greater than 50% in coordination of care (as documented) at patient's floor/unit and/or counseling patient: Internal Medicine: Result - Labs CBC & Chem 7: 07/12/18 04:00 07/12/18 04:00 Labs: Short CBC 07/12/18 Range/Units 04:00 WBC 9.6 (4.3-11.1) K/mcL Hgb 9.2 L (11.5-15.4) g/dL Hct 28.9 L (35.3-44.9) % Plt Count 212 (140-400) K/mcL Neutrophils # 7.1 (1.6-8.9) K/mcL BMP 07/12/18 04:00 Sodium 137 Potassium 3.8 Chloride 105 Carbon Dioxide 21 L BUN 12 Creatinine 0.67 Glucose 174 H Calcium 7.9 L - ABG Interpretation ABG results: PT/INR, D-dimer PT 12.2 Seconds (9.4-12.1) H 07/08/18 12:53 - Impressions Impressions Retroperitoneum Ultrasound 07/11/18 17:30 IMPRESSION: Unremarkable ultrasound of the kidneys and urinary bladder. D/ / Jani Cisneros MD / Jani Cisneros MD Interpreting Provider: Jani Cisneros MD Consult Discharge Plan - Plan Referrals: Carlo Acevedo DO [Primary Care Provider] - - Attending Attestation I examined this patient and my medical decision-making was reviewed with the Resident Physician on 07/12/18. I agree with the documented findings, disposition and treatment plan as described except to the extent set forth below. Ms Barraza is currently admitted for acute pancreatitis. Her renal symptoms are better today. She remains moderate to high risk due to potential for worsening clinical status. Ms Barraza tried soft diet and pain returned. No fever or chills. Less urinary issues today and US negative. No CP or SOB. Some edema noted. Feels hungry. Exam alert Comfortable Mucus membranes dry No adenopathy Heart reg and not tachy No wheeze abd soft with some discomfort in epigastric region. No peritoneal signs. Pedal edema present I/P 1. Acute pancreatitis - back diet back to full liquids. If still an issue tomorrow needs repeat CT 2. Morbid obesity 3. Possible kidney stone - symptoms improved. US negative. Further diagnoses and plan as above. <Syeda Ortega - Last Filed: 07/12/18 18:41> Hospitalist Progress Note - Encounter Date of Encounter: 07/12/18 Time of Encounter: 09:00 - Subjective Interval History: Is a 68-year-old female past medical history of recurrent pancreatitis amah she has had 3 bouts of pancreatitis in the past. Her last episode was a few years ago for medication that has been discontinued. Recent medications injuries including codeine cough medicine. Today the patient is feeling much better. She asked to try a soft diet today but did not tolerate this. We will do a full liquid diet for dinner. She states her abdominal pain is much better. In that she no longer has blood in her urine. States that all pain was worse last night. She states that she became slightly winded taking her shower today. Patient denies any chest pain, has not had a bowel movement since the diarrhea on admission, denies pain with urination - Exam Vitals: Temp Pulse Resp BP Pulse Ox 98.1 F 67 17 135/55 100 07/12/18 15:31 04/11/19 15:31 07/12/18 15:31 07/12/18 15:31 07/12/18 15:31 Exam: General: AAO 3, no acute distress, answers questions appropriately Head: normocephalic, atraumatic Eyes: CAROLINE, no icterus Cardio: RRR, no mumurs, rubs, or gallops Respiratory: CTAB, slight end expiratory wheeze, rhonchi, rales Abd: normal bowel sounds, no gaurding or rigidity, slight tenderness to palpation over the midepigastric region Extremties: no pedal edema, pulses equal bilaterally, warm Skin: warm, dry, intact - Assessment and Plan (1) Acute pancreatitis Current Visit: Yes Status: Acute Assessment and Plan: Previous history of acute pancreatitis due to medication Codeine and cough medicine could have been precipitating factor Acute pancreatitis and duodenitis was noted on CT Trial of soft diet was not tolerated full liquid Diet starting at dinner tonight Pain management Possible discharge tomorrow (2) Hypertension Current Visit: No Status: Chronic Assessment and Plan: Hypertension currently stable on carvedilol and lisinopril Continue home blood pressure meds (3) Diabetes mellitus, type II Current Visit: No Status: Chronic Assessment and Plan: currently on insulin at home Glucose is currently controlled Medium sliding scale insulin Accu-Cheks Diabetic diet once able to tolerate (4) Hypothyroidism Current Visit: No Status: Chronic Assessment and Plan: Early on levothyroxine Continue home medication (5) RAJENDRA (obstructive sleep apnea) Current Visit: No Status: Chronic Assessment and Plan: CPAP at home Continue CPAP At bedside during the night Patient states she will have someone bring her home CPAP to use (6) DVT prophylaxis Current Visit: No Status: Acute Assessment and Plan: Subcutaneous heparin (7) Burning with urination Current Visit: Yes Status: Acute Assessment and Plan: Along with left flank pain started 3 days ago she had some dysuria as well as pink-colored urine She has no history of kidney stones Enteroperitoneal ultrasound showed no kidney stone however due to her symptoms this is still a possibility Urinalysis showed moderate amounts of blood and red blood cells Abdominal CT showed no acute process on admission Due to resolution of pain Flomax has been stopped IV fluids have been discontinued Patient follow-up as an outpatient with urology if still concerned (8) COPD (chronic obstructive pulmonary disease) Current Visit: Yes Status: Chronic Assessment and Plan: Patient on Symbicort and albuterol inhaler at home Well controlled Continue home medications DVT Prophylaxis: Subcutaneous heparin - Time Spent with Patient Total time spent is greater than 50% in coordination of care (as documented) at patient's floor/unit and/or counseling patient: Internal Medicine: Result - Labs CBC & Chem 7: 07/12/18 04:00 07/12/18 04:00 Labs: Short CBC 07/12/18 Range/Units 04:00 WBC 9.6 (4.3-11.1) K/mcL Hgb 9.2 L (11.5-15.4) g/dL Hct 28.9 L (35.3-44.9) % Plt Count 212 (140-400) K/mcL Neutrophils # 7.1 (1.6-8.9) K/mcL BMP 07/12/18 04:00 Sodium 137 Potassium 3.8 Chloride 105 Carbon Dioxide 21 L BUN 12 Creatinine 0.67 Glucose 174 H Calcium 7.9 L - ABG Interpretation ABG results: PT/INR, D-dimer PT 12.2 Seconds (9.4-12.1) H 07/08/18 12:53 - Impressions Impressions Retroperitoneum Ultrasound 07/11/18 17:30 IMPRESSION: Unremarkable ultrasound of the kidneys and urinary bladder. D/ / Jani Cisneros MD / Jani Cisneros MD Interpreting Provider: Jani Cisneros MD <Hai Killian - Last Filed: 07/12/18 16:00> (1) Hypothyroidism Qualifiers: Hypothyroidism type: acquired Qualified Code(s): E03.9 - Hypothyroidism, unspecified (3) Diabetes mellitus, type II Qualifiers: Diabetes mellitus bed bug exterminator insulin use: with retirement use Diabetes mellitus complication status: without complication Qualified Code(s): E11.9 - Type 2 diabetes mellitus without complications; Z79.4 - jail (current) use of insulin (4) Hypertension Qualifiers: Hypertension type: essential hypertension Qualified Code(s): I10 - Essential (primary) hypertension (6) Acute pancreatitis Qualifiers: Pancreatitis type: drug induced Acute pancreatitis complication: no infection or necrosis Qualified Code(s): K85.30 - Drug induced acute pancreatitis without necrosis or infection (8) COPD (chronic obstructive pulmonary disease) Qualifiers: COPD type: unspecified COPD Qualified Code(s): J44.9 - Chronic obstructive pulmonary disease, unspecified <Syeda Ortega - Last Filed: 07/12/18 18:41> (1) Acute pancreatitis Qualifiers: Pancreatitis type: drug induced Acute pancreatitis complication: no infection or necrosis Qualified Code(s): K85.30 - Drug induced acute pancreatitis without necrosis or infection (2) Hypertension Qualifiers: Hypertension type: essential hypertension Qualified Code(s): I10 - Essential (primary) hypertension (3) Diabetes mellitus, type II Qualifiers: Diabetes mellitus bed bug exterminator insulin use: with retirement use Diabetes mellitus complication status: without complication Qualified Code(s): E11.9 - Type 2 diabetes mellitus without complications; Z79.4 - jail (current) use of insulin (4) Hypothyroidism Qualifiers: Hypothyroidism type: acquired Qualified Code(s): E03.9 - Hypothyroidism, unspecified (8) COPD (chronic obstructive pulmonary disease) Qualifiers: COPD type: unspecified COPD Qualified Code(s): J44.9 - Chronic obstructive pulmonary disease, unspecified
[2018-07-12] MEDS: Menthol 9.1 MG LOZENGE PO PRN (21:10)
[2018-07-13] MEDS: OXYCODONE Oral CONC 10 MG/0.5 ML ORAL.SYG SL PRN (01:07)
[2018-07-13 04:36] LABS: Basophils % 0.4 %; Eosinophils # 0.4 K/mcL (0.0-0.6); Eosinophils % 4.5 %; Hematocrit 24.6 % (35.3-44.9); Hemoglobin 7.9 g/dL (11.5-15.4); Immature Granulocytes % 0.6 % (0-4); Lymphocytes # 0.9 K/mcL (0.6-4.6); Lymphocytes % 11.4 %; Mean Corpuscular HGB Conc 32.1 g/dL (31.6-35.5); Mean Corpuscular Hemoglobin 29.5 pg (28.0-33.3); Mean Corpuscular Volume 91.8 fL (83.0-100.0); Mean Platelet Volume 10.7 fL (9.4-12.4); Monocytes % 11.6 %; Neutrophils # 5.8 K/mcL (1.6-8.9); Platelet Count 197 K/mcL (140-400); Red Blood Count 2.68 M/mcL (3.82-4.97); Red Cell Distribution Width 13.2 % (11.5-14.5); Segmented Neutrophils % 71.5 %
[2018-07-13 04:44] LABS: Alanine Aminotransferase 11 Units/L (7-52); Albumin 2.7 g/dL (3.5-5.7); Alkaline Phosphatase 80 Units/L (34-104); Aspartate Amino Transferase 13 Units/L (13-39); BUN/Creatinine Ratio 20 (6-26); Bilirubin,Total 0.4 mg/dL (0.3-1.0); Blood Urea Nitrogen 12 mg/dL (8-23); Calcium 8.3 mg/dL (8.6-10.3); Carbon Dioxide 21 mEq/L (23-29); Chloride 104 mEq/L (98-107); Globulin 2.7 g/dL (2.4-3.5); Glucose 220 mg/dL (70-105); Osmolality,Calculated 289 (280-300); Potassium 3.6 mEq/L (3.5-5.1); Sodium 136 mEq/L (136-145); Total Protein 5.4 g/dL (6.4-8.9); eGFR For Non-African Americans > 60 (> 60)
[2018-07-13] MEDS: *HR* Heparin 5,000 UNIT/ML VIAL SQ SCH ×3 (05:33→21:36)
[2018-07-13] MEDS: Insulin LISPRO 300 UNITS/3 ML VIAL SQ SCH ×3 (07:34→18:33)
[2018-07-13] MEDS: Budesonide/Formoterol 80/4.5 MDI IH SCH ×2 (07:58→20:48)
[2018-07-13 08:02] LABS: Hematocrit 25.2 % (35.3-44.9); Hemoglobin 8.1 g/dL (11.5-15.4)
[2018-07-13] MEDS: Famotidine 20 MG TABLET PO SCH ×2 (08:24→21:35)
[2018-07-13] MEDS: Isosorbide MONOnitrate (24 HR) 30 MG TAB.ER.24H PO SCH (08:24)
[2018-07-13] MEDS: Lisinopril 20 MG TABLET PO SCH (08:24)
[2018-07-13] MEDS: Fenofibrate 54 MG TABLET PO SCH (08:24)
[2018-07-13] MEDS: *HR* HYDROcodone/Acet 5/325 mg TABLET PO PRN ×3 (09:54→21:35)
[2018-07-13 12:52] LABS: Hematocrit 24.2 % (35.3-44.9); Hemoglobin 7.8 g/dL (11.5-15.4)
--- NOTE | 2018-07-13 15:13 | Internal Med Progress Note ---
<Syeda Ortega E - Last Filed: 07/13/18 15:10> Hospitalist Progress Note - Encounter Date of Encounter: 07/13/18 Time of Encounter: 09:00 - Subjective Interval History: 68-year-old female past medical history of recurrent pancreatitis, she has had 3 bouts of pancreatitis in the past. Her last episode was a few years ago for medication that has been discontinued. Recent medical dictation changes include codeine cough medicine, antibiotics. Today patient is feeling worse. She has not tolerated a soft diet. She states her abdominal pain is worse. Patient denies any chest pain, has had some diarrhea, denies pain with urination - Exam Vitals: Temp Pulse Resp BP Pulse Ox 98.3 F 73 16 150/68 98 07/13/18 14:46 07/13/18 14:46 07/13/18 14:46 07/13/18 14:46 07/13/18 14:46 Exam: General: Awake alert and oriented 3, mild distress, answers questions appropriately Head: normocephalic, atraumatic Eyes: CAROLINE, no icterus Cardio: RRR, no mumurs, rubs, or gallops Respiratory: CTAB, no wheezing, rhonchi, rales Abd: normal bowel sounds, guarding noted, tenderness to palpation midepigastric region Extremties: no peda edema, pulses equal bilaterally, warm Skin: warm, dry, intact - Assessment and Plan (1) Acute pancreatitis Current Visit: Yes Status: Acute Assessment and Plan: Previous history of acute pancreatitis due to medication Codeine and cough medicine could have been precipitating factor Rule out hypertriglyceridemia Lipase elevated on admission, is trending down Acute pancreatitis and duodenitis was noted on CT Trial of soft diet was not tolerated CT was done today showed evidence of increasing inflammation but no pseudocyst. Patient is now nothing by mouth Pain management (2) Hypertension Current Visit: No Status: Chronic Assessment and Plan: Hypertension currently stable on carvedilol and lisinopril Continue home blood pressure meds (3) Diabetes mellitus, type II Current Visit: No Status: Chronic Assessment and Plan: Currently on insulin at home Glucose is currently controlled Medium-sized scale insulin Accu-Cheks Diabetic diet once able to tolerate (4) Hypothyroidism Current Visit: No Status: Chronic Assessment and Plan: Is on levothyroxine at home Continue home medication (5) RAJENDRA (obstructive sleep apnea) Current Visit: No Status: Chronic Assessment and Plan: Uses CPAP at home Patient sees CPAP at night. (6) DVT prophylaxis Current Visit: No Status: Acute Assessment and Plan: Subcutaneous heparin (7) Burning with urination Current Visit: Yes Status: Resolved Assessment and Plan: This has resolved, we believe this is caused by passing of kidney stone (8) COPD (chronic obstructive pulmonary disease) Current Visit: Yes Status: Chronic Assessment and Plan: Patient on Symbicort and albuterol inhaler at home Well controlled CT today showed small bilateral pleural effusions We will continue to monitor Started incentive spirometry DVT Prophylaxis: Subcutaneous heparin - Time Spent with Patient Total time spent is greater than 50% in coordination of care (as documented) at patient's floor/unit and/or counseling patient: Internal Medicine: Result - Labs CBC & Chem 7: 07/13/18 12:32 07/13/18 04:11 Labs: Short CBC 07/13/18 07/13/18 07/13/18 Range/Units 04:11 07:39 12:32 WBC 8.2 (4.3-11.1) K/mcL Hgb 7.9 L 8.1 L 7.8 L (11.5-15.4) g/dL Hct 24.6 L 25.2 L 24.2 L (35.3-44.9) % Plt Count 197 (140-400) K/mcL Neutrophils # 5.8 (1.6-8.9) K/mcL BMP 07/13/18 04:11 Sodium 136 Potassium 3.6 Chloride 104 Carbon Dioxide 21 L BUN 12 Creatinine 0.61 Glucose 220 H Calcium 8.3 L Liver Function 07/13/18 Range/Units 04:11 Total Bilirubin 0.4 (0.3-1.0) mg/dL AST 13 (13-39) Units/L ALT 11 (7-52) Units/L Alkaline Phosphatase 80 (34-104) Units/L Albumin 2.7 L (3.5-5.7) g/dL - ABG Interpretation ABG results: PT/INR, D-dimer PT 12.2 Seconds (9.4-12.1) H 07/08/18 12:53 - Impressions Impressions Abdomen CT 07/13/18 11:17 IMPRESSION: Increased severity of inflammatory changes related to pancreatitis, but no pseudocyst. New small bilateral pleural effusions. D/ / Kirby Kohler MD / Kirby Kohler MD Interpreting Provider: Kriby Kohler MD Consult Discharge Plan - Plan Referrals: Carlo Acevedo DO [Primary Care Provider] - <Hai Killian - Last Filed: 07/13/18 19:08> Hospitalist Progress Note - Encounter Date of Encounter: 07/13/18 - Exam Vitals: Temp Pulse Resp BP Pulse Ox 98.3 F 73 16 150/68 98 07/13/18 14:46 07/13/18 14:46 07/13/18 14:46 07/13/18 14:46 07/13/18 14:46 - Assessment and Plan (1) Hypothyroidism Current Visit: No Status: Chronic (2) DVT prophylaxis Current Visit: No Status: Acute (3) Diabetes mellitus, type II Current Visit: No Status: Chronic (4) Hypertension Current Visit: No Status: Chronic (5) RAJENDRA (obstructive sleep apnea) Current Visit: No Status: Chronic (6) Acute pancreatitis Current Visit: Yes Status: Acute (7) Left flank pain Current Visit: Yes Status: Acute (8) COPD (chronic obstructive pulmonary disease) Current Visit: Yes Status: Chronic (9) Morbid obesity with BMI of 40.0-44.9, adult Current Visit: Yes Status: Chronic - Time Spent with Patient Total time spent is greater than 50% in coordination of care (as documented) at patient's floor/unit and/or counseling patient: Internal Medicine: Result - Labs CBC & Chem 7: 07/13/18 16:20 07/13/18 04:11 Labs: Short CBC 07/13/18 07/13/18 07/13/18 Range/Units 04:11 07:39 12:32 WBC 8.2 (4.3-11.1) K/mcL Hgb 7.9 L 8.1 L 7.8 L (11.5-15.4) g/dL Hct 24.6 L 25.2 L 24.2 L (35.3-44.9) % Plt Count 197 (140-400) K/mcL Neutrophils # 5.8 (1.6-8.9) K/mcL 07/13/18 Range/Units 16:20 WBC (4.3-11.1) K/mcL Hgb 8.0 L (11.5-15.4) g/dL Hct 24.6 L (35.3-44.9) % Plt Count (140-400) K/mcL Neutrophils # (1.6-8.9) K/mcL BMP 07/13/18 04:11 Sodium 136 Potassium 3.6 Chloride 104 Carbon Dioxide 21 L BUN 12 Creatinine 0.61 Glucose 220 H Calcium 8.3 L Liver Function 07/13/18 Range/Units 04:11 Total Bilirubin 0.4 (0.3-1.0) mg/dL AST 13 (13-39) Units/L ALT 11 (7-52) Units/L Alkaline Phosphatase 80 (34-104) Units/L Albumin 2.7 L (3.5-5.7) g/dL - ABG Interpretation ABG results: PT/INR, D-dimer PT 12.2 Seconds (9.4-12.1) H 07/08/18 12:53 - Impressions Impressions Abdomen CT 07/13/18 11:17 IMPRESSION: Increased severity of inflammatory changes related to pancreatitis, but no pseudocyst. New small bilateral pleural effusions. D/ / Kirby Kohler MD / Kirby Kohler MD Interpreting Provider: Kirby Kohler MD - Attending Attestation I examined this patient and my medical decision-making was reviewed with the Resident Physician on 07/13/18. I agree with the documented findings, disposition and treatment plan as described except to the extent set forth below. Ms Barraza is currently admitted for acute pancreatitis. She remains moderate to high risk due to potential for worsening clinical status. Ms Barraza is having more pain. No fever or chills. No CP. Not tolerating diet much. Exam alert Mild distress at rest Mucus membranes dry Heart reg and not tachy No wheeze abd soft. Epigastric discomfort noted. No rebound No edema I/P 1. Acute pancreatitis - recheck CT today. Continue pain control 2. HTN 3. DM 4. RAJENDRA Further diagnoses and plan as above. <Sydea Ortega Iron - Last Filed: 07/13/18 15:10> (1) Acute pancreatitis Qualifiers: Pancreatitis type: drug induced Acute pancreatitis complication: no infection or necrosis Qualified Code(s): K85.30 - Drug induced acute pancreatitis without necrosis or infection (2) Hypertension Qualifiers: Hypertension type: essential hypertension Qualified Code(s): I10 - Essential (primary) hypertension (3) Diabetes mellitus, type II Qualifiers: Diabetes mellitus long chain beamer insulin use: with fci use Diabetes mellitus complication status: without complication Qualified Code(s): E11.9 - Type 2 mau betes mellitus without complications; Z79.4 - termite helper (current) use of insulin (4) Hypothyroidism Qualifiers: Hypothyroidism type: acquired Qualified Code(s): E03.9 - Hypothyroidism, unspecified (8) COPD (chronic obstructive pulmonary disease) Qualifiers: COPD type: unspecified COPD Qualified Code(s): J44.9 - Chronic obstructive pulmonary disease, unspecified <Hai Killian A - Last Filed: 07/13/18 19:08> (1) Hypothyroidism Qualifiers: Hypothyroidism type: acquired Qualified Code(s): E03.9 - Hypothyroidism, u nspecified (3) Diabetes mellitus, type II Qualifiers: Diabetes mellitus long chain beamer insulin use: with fci use Diabetes mellitus complication status: without complication Qualified Code(s): E11.9 - Type 2 diabetes mellitus without complications; Z79.4 - termite helper (current) use of insulin (4) Hypertension Qualifiers: Hypertension type: essential hypertension Qualified Code(s): I10 - Essential (primary) hypertension (6) Acute pancreatitis Qualifiers: Pancreatitis type: drug induced Acute pancreatitis complication: no infection or necrosis Qualified Code(s): K85.30 - Drug induced acute pancreatitis without necrosis or infection (8) COPD (chronic obstructive pulmonary disease) Qualifiers: COPD type: unspecified COPD Qualified Code(s): J44.9 - Chronic obstructive pulmonary disease, unspecified
[2018-07-13] MEDS ORDERED: Dextrose Gel 15 GM/37.5 ML TUBE PO PRN ×2 (16:05)
[2018-07-13] MEDS ORDERED: D5% in Water 1,000 ML IVC PRN (16:05)
[2018-07-13] MEDS ORDERED: *HR* Dextrose 50 % in Water (Syg) 50 ML SYRINGE IVP PRN (16:05)
[2018-07-13 16:49] LABS: Hematocrit 24.6 % (35.3-44.9)
[2018-07-13 20:38] LABS: Hematocrit 26.2 % (35.3-44.9); Hemoglobin 8.5 g/dL (11.5-15.4)
[2018-07-13] MEDS: 0.9 % Sodium Chloride 1,000 ML IVC SCH (21:35)
[2018-07-14] MEDS: Insulin LISPRO 300 UNITS/3 ML VIAL SQ SCH ×5 (00:34→23:45)
[2018-07-14 04:32] LABS: Basophils % 0.4 %; Eosinophils # 0.4 K/mcL (0.0-0.6); Eosinophils % 4.9 %; Hematocrit 24.1 % (35.3-44.9); Hemoglobin 7.7 g/dL (11.5-15.4); Immature Granulocytes % 1.4 % (0-4); Lymphocytes # 0.9 K/mcL (0.6-4.6); Lymphocytes % 10.2 %; Mean Corpuscular Hemoglobin 29.3 pg (28.0-33.3); Mean Corpuscular Volume 91.6 fL (83.0-100.0); Mean Platelet Volume 10.6 fL (9.4-12.4); Monocytes % 11.9 %; Neutrophils # 6.1 K/mcL (1.6-8.9); Platelet Count 205 K/mcL (140-400); Red Blood Count 2.63 M/mcL (3.82-4.97); Red Cell Distribution Width 13.3 % (11.5-14.5); Segmented Neutrophils % 71.2 %
[2018-07-14 04:54] LABS: Alanine Aminotransferase 17 Units/L (7-52); Albumin 2.8 g/dL (3.5-5.7); Alkaline Phosphatase 132 Units/L (34-104); Aspartate Amino Transferase 21 Units/L (13-39); BUN/Creatinine Ratio 17 (6-26); Bilirubin,Total 0.4 mg/dL (0.3-1.0); Blood Urea Nitrogen 10 mg/dL (8-23); Calcium 8.4 mg/dL (8.6-10.3); Carbon Dioxide 21 mEq/L (23-29); Chloride 102 mEq/L (98-107); Globulin 2.8 g/dL (2.4-3.5); Glucose 201 mg/dL (70-105); Osmolality,Calculated 293 (280-300); Potassium 3.4 mEq/L (3.5-5.1); Sodium 139 mEq/L (136-145); Total Protein 5.6 g/dL (6.4-8.9); eGFR For Non-African Americans > 60 (> 60)
[2018-07-14] MEDS: *HR* Heparin 5,000 UNIT/ML VIAL SQ SCH ×2 (05:31→13:54)
[2018-07-14] MEDS: *HR* HYDROcodone/Acet 5/325 mg TABLET PO PRN ×3 (05:37→21:22)
[2018-07-14] MEDS: Budesonide/Formoterol 80/4.5 MDI IH SCH ×2 (08:14→19:28)
[2018-07-14] MEDS: Fenofibrate 54 MG TABLET PO SCH (08:35)
[2018-07-14] MEDS: Lisinopril 20 MG TABLET PO SCH (08:36)
[2018-07-14] MEDS: Isosorbide MONOnitrate (24 HR) 30 MG TAB.ER.24H PO SCH (08:36)
[2018-07-14] MEDS: Famotidine 20 MG TABLET PO SCH (08:36)
[2018-07-14] MEDS: 0.9 % Sodium Chloride 1,000 ML IVC SCH ×2 (11:36→23:42)
[2018-07-14] MEDS ORDERED: Pantoprazole 40 MG VIAL IVP SCH (12:00)
--- NOTE | 2018-07-14 14:48 | Internal Med Progress Note ---
<Rosa Romero - Last Filed: 07/14/18 16:04> Hospitalist Progress Note - Encounter Date of Encounter: 07/14/18 Time of Encounter: 14:46 - Subjective Interval History: Patient seen and examined at bedside. She is alert and oriented times 3. She reports she is still having epigastric pain. She denies seen any obvious bleeding. She denies fever, chills, diarrhea, melena, hemachezia, hematuria, dysuria. - Exam Vitals: Temp Pulse Resp BP Pulse Ox 98.9 F 72 19 166/63 98 07/14/18 14:19 07/14/18 14:19 07/14/18 14:19 07/14/18 14:19 07/14/18 14:19 Exam: Gen.: Vitals noted. No acute distress. AAOx3 HEENT:oropharynx clear, Normocephalic, atraumatic. Cardiac: RRR, no murmur, +S1/S2 Pulmonary: minimal bilaterally wheezes, no rales or rhonchi, equal chest expansion Abdomen: soft, epigastric tender, Bowel sounds noted, no guarding Extremities: no BLE edema, nontender calf, no cyanosis or clubbing Neuro: A&Ox3, moves all extremities, no focal deficits Psych: Appropriate mood and behavior - Assessment and Plan (1) Acute pancreatitis Current Visit: Yes Status: Acute Assessment and Plan: Acute pancreatitis -patient with 3 prior acute pancreatitis hospitalizations -etiology has been determined however may be secondary to recent codeine use for cough. Prior acute pancreatitis was secondary to the blood pressure medication that had been stopped according to the patient. -abdominal CT demonstrating Vijay pancreatic fat stranding especially around the head and neck of the pancreas. Mild duodenal wall thickening involving 2nd and 3rd duodenum. -Afebrile, WBC WNL -lipase > 1800 on admission, amylase 399 -calcium and triglycerides not elevated -repeat abdominal CT showing increased severity of inflammatory changes related to pancreatitis but no pseudo cyst. Plan: -patient on clear liquid diet. Epigastric pain improving but is still present -will continue pain medication management -will continue supportive care as she is improving (2) Hypothyroidism Current Visit: No Status: Chronic Assessment and Plan: History of hyperthyroidism taking levothyroxine -continue home medication (3) Diabetes mellitus, type II Current Visit: No Status: Chronic Assessment and Plan: History of diabetes taking insulin -glucose controlled -continue medium dose sliding scale insulin -continue Accu checks -diabetic diet when able (4) Hypertension Current Visit: No Status: Chronic Assessment and Plan: History of hypertension taking carvedilol, lisinopril -blood pressure stable -continue home BP meds (5) RAJENDRA (obstructive sleep apnea) Current Visit: No Status: Chronic Assessment and Plan: History of RAJENDRA using a CPAP at night -continue CPAP at bedtime (6) COPD (chronic obstructive pulmonary disease) Current Visit: Yes Status: Chronic Assessment and Plan: History of COPD taking Symbicort and albuterol. Not on oxygen. -CT showed a small bilateral pleural effusions Plan: -continue home inhalers -continue supplemental oxygen as needed -continue incentive spirometry (7) Left flank pain Current Visit: Yes Status: Acute Assessment and Plan: Resolved. Patient reports having left flank pain that started 2 nights ago. She additionally has had dysuria and pink tinged urine. -Concerning for nephrolithiasis in left kidney. She has never had a kidney stone. However do the symptoms and physical exam this is concerning. Her son has recently been treated for removal of a kidney stone. -Urinalysis showing moderate amount of blood and RBCs -left flank tenderness on physical exam -abdominal CT on admission did not show acute process surrounding kidneys -retroperitoneal ultrasound negative for kidney stones -Patient may have passed a kidney stone. The pain has resolved and so has the hematuria and dysuria. Will continue to monitor (8) Morbid obesity with BMI of 40.0-44.9, adult Current Visit: Yes Status: Chronic (9) DVT prophylaxis Current Visit: No Status: Acute Assessment and Plan: SCD No anticoagulation due to concern for bleeding (10) Anemia Current Visit: Yes Status: Acute Assessment and Plan: Patient with hemoglobin that has slowly down trended. -Etiology is concerning for possible G.I. bleed such as gastric ulcer. Initially the decreasing hemoglobin was thought to be due to the volume resuscitation with IV fluids however this is unlikely as hemoglobin continues to decrease. -Hemoglobin 7.7 (11.4 on admission) -BUN 12 -no obvious active bleeding. -Patient has no history of gastric ulcers -blood typed and screened: O-negative Plan: -Protonix Q 12 H -will likely consult G.I. for endoscopy possibly on Monday -Monitor for bleeding -will transfuse if needed -continue to monitor hemoglobin - Time Spent with Patient Total time spent is greater than 50% in coordination of care (as documented) at patient's floor/unit and/or counseling patient: Internal Medicine: Result - Labs CBC & Chem 7: 07/14/18 04:15 07/14/18 04:15 Labs: Short CBC 07/13/18 07/13/18 07/14/18 Range/Units 16:20 20:25 04:15 WBC 8.6 (4.3-11.1) K/mcL Hgb 8.0 L 8.5 L 7.7 L (11.5-15.4) g/dL Hct 24.6 L 26.2 L 24.1 L (35.3-44.9) % Plt Count 205 (140-400) K/mcL Neutrophils # 6.1 (1.6-8.9) K/mcL BMP 07/14/18 04:15 Sodium 139 Potassium 3.4 L Chloride 102 Carbon Dioxide 21 L BUN 10 Creatinine 0.60 Glucose 201 H Calcium 8.4 L Liver Function 07/14/18 Range/Units 04:15 Total Bilirubin 0.4 (0.3-1.0) mg/dL AST 21 (13-39) Units/L ALT 17 (7-52) Units/L Alkaline Phosphatase 132 H (34-104) Units/L Albumin 2.8 L (3.5-5.7) g/dL - ABG Interpretation ABG results: PT/INR, D-dimer PT 12.2 Seconds (9.4-12.1) H 07/08/18 12:53 Consult Discharge Plan - Plan Referrals: Carlo Acevedo DO [Primary Care Provider] - <Hai Killian - Last Filed: 07/14/18 17:46> Hospitalist Progress Note - Encounter Date of Encounter: 07/14/18 - Exam Vitals: Temp Pulse Resp BP Pulse Ox 98.9 F 72 19 166/63 98 07/14/18 14:19 07/14/18 14:19 07/14/18 14:19 07/14/18 14:07/14/18 14:19 - Assessment and Plan (1) Hypothyroidism Current Visit: No Status: Chronic (2) DVT prophylaxis Current Visit: No Status: Acute (3) Diabetes mellitus, type II Current Visit: No Status: Chronic (4) Hypertension Current Visit: No Status: Chronic (5) RAJENDRA (obstructive sleep apnea) Current Visit: No Status: Chronic (6) Acute pancreatitis Current Visit: Yes Status: Acute (7) COPD (chronic obstructive pulmonary disease) Current Visit: Yes Status: Chronic (8) Left flank pain Current Visit: Yes Status: Acute (9) Morbid obesity with BMI of 40.0-44.9, adult Current Visit: Yes Status: Chronic (10) Anemia Current Visit: Yes Status: Suspected - Time Spent with Patient Total time spent is greater than 50% in coordination of care (as documented) at patient's floor/unit and/or counseling patient: Internal Medicine: Result - Labs CBC & Chem 7: 07/14/18 04:15 07/14/18 04:15 Labs: Short CBC 07/13/18 07/14/18 Range/Units 20:25 04:15 WBC 8.6 (4.3-11.1) K/mcL Hgb 8.5 L 7.7 L (11.5-15.4) g/dL Hct 26.2 L 24.1 L (35.3-44.9) % Plt Count 205 (140-400) K/mcL Neutrophils # 6.1 (1.6-8.9) K/mcL BMP 07/14/18 04:15 Sodium 139 Potassium 3.4 L Chloride 102 Carbon Dioxide 21 L BUN 10 Creatinine 0.60 Glucose 201 H Calcium 8.4 L Liver Function 07/14/18 Range/Units 04:15 Total Bilirubin 0.4 (0.3-1.0) mg/dL AST 21 (13-39) Units/L ALT 17 (7-52) Units/L Alkaline Phosphatase 132 H (34-104) Units/L Albumin 2.8 L (3.5-5.7) g/dL - ABG Interpretation ABG results: PT/INR, D-dimer PT 12.2 Seconds (9.4-12.1) H 07/08/18 12:53 - Attending Attestation I examined this patient and my medical decision-making was reviewed with the Resident Physician on 07/14/18. I agree with the documented findings, disposi tion and treatment plan as described except to the extent set forth below. Ms Barraza is currently admitted for acute pancreatitis. She remains moderate to high risk due to potential for worsening clinical status. Ms Barraza is still having pain. She is having some pain around her L upper abdomen as well. Worse with eating. Nausea present. No fever or chills. H/H is lower today. Exam alert Comfortable Mucus membranes dry Heart reg and not tachy No wheeze abd with epigastric and LUQ discomfort No edema I/P 1. Acute pancreatitis - persists - try liquid diet today. 2. Anemia - H/H continues to drop. No overt bleeding noted. Pain could be due to gastric area. Will start PPI. Watch H/H and transfuse if under 7. GI eval Monday - suspect needs EGD. Fluid collection around pancreas as well so need to watch for hemorrhagic complication. Further diagnoses and plan as above. <Rosa Romero - Last Filed: 07/14/18 16:04> (1) Acute pancreatitis Qualifiers: Pancreatitis type: drug induced Acute pancreatitis complication: no infection or necrosis Qualified Code(s): K85.30 - Drug induced acute pancreatitis without necrosis or infection (2) Hypothyroidism Qualifiers: Hypothyroidism type: acquired Qualified Code(s): E03.9 - Hypothyroidism, unspecified (3) Diabetes mellitus, type II Qualifiers: Diabetes mellitus moth exterminator insulin use: with long-term use Diabetes mellitus complication status: without complication Qualified Code(s): E11.9 - Type 2 diabetes mellitus without complications; Z79.4 - terminal operations supervisor (current) use of insulin (4) Hypertension Qualifiers: Hypertension type: essential hypertension Qualified Code(s): I10 - Essential (primary) hypertension (6) COPD (chronic obstructive pulmonary disease) Qualifiers: COPD type: unspecified COPD Qualified Code(s): J44.9 - Chronic obstructive pulmonary disease, unspecified <Hai Killian - Last Filed: 07/14/18 17:46> (1) Hypothyroidism Qualifiers: Hypothyroidism type: acquired Qualified Code(s): E03.9 - Hypothyroidism, unspecified (3) Diabetes mellitus, type II Qualifiers: Diabetes mellitus long-term insulin use: with long-term use Diabetes mellitus complication status: without complication Qualified Code(s): E11.9 - Type 2 diabetes mellitus without complications; Z79.4 - [facility] (current) use of insulin (4) Hypertension Qualifiers: Hypertension type: essential hypertension Qualified Code(s): I10 - Essential (primary) hypertension (6) Acute pancreatitis Qualifiers: Pancreatitis type: drug induced Acute pancreatitis complication: no infection or necrosis Qualified Code(s): K85.30 - Drug induced acute pancreatitis without necrosis or infection (7) COPD (chronic obstructive pulmonary disease) Qualifiers: COPD type: unspecified COPD Qualified Code(s): J44.9 - Chronic obstructive pulmonary disease, unspecified (10) Anemia Qualifiers: Anemia type: iron deficiency Iron deficiency anemia type: chronic blood loss Qualified Code(s): D50.0 - Iron deficiency anemia secondary to blood loss (chronic)
[2018-07-14] MEDS: Pantoprazole 40 MG VIAL IVP SCH (17:04)
[2018-07-15] MEDS: *HR* HYDROcodone/Acet 5/325 mg TABLET PO PRN ×2 (02:13→20:29)
[2018-07-15 03:14] LABS: BUN/Creatinine Ratio 15 (6-26); Blood Urea Nitrogen 9 mg/dL (8-23); Calcium 8.4 mg/dL (8.6-10.3); Carbon Dioxide 19 mEq/L (23-29); Chloride 105 mEq/L (98-107); Glucose 169 mg/dL (70-105); Osmolality,Calculated 287 (280-300); Potassium 3.3 mEq/L (3.5-5.1); Sodium 137 mEq/L (136-145); eGFR For Non-African Americans > 60 (> 60)
[2018-07-15 03:15] LABS: Basophils % 0.4 %; Eosinophils # 0.4 K/mcL (0.0-0.6); Eosinophils % 5.1 %; Hematocrit 22.6 % (35.3-44.9); Hemoglobin 7.4 g/dL (11.5-15.4); Immature Granulocytes % 2.2 % (0-4); Lymphocytes # 0.9 K/mcL (0.6-4.6); Lymphocytes % 10.3 %; Mean Corpuscular HGB Conc 32.7 g/dL (31.6-35.5); Mean Corpuscular Hemoglobin 29.6 pg (28.0-33.3); Mean Corpuscular Volume 90.4 fL (83.0-100.0); Mean Platelet Volume 10.7 fL (9.4-12.4); Monocytes % 11.5 %; Platelet Count 239 K/mcL (140-400); Red Cell Distribution Width 13.5 % (11.5-14.5); Segmented Neutrophils % 70.5 %
[2018-07-15] MEDS: Pantoprazole 40 MG VIAL IVP SCH ×2 (05:27→17:07)
[2018-07-15] MEDS: Insulin LISPRO 300 UNITS/3 ML VIAL SQ SCH ×3 (05:48→20:26)
[2018-07-15] MEDS: Budesonide/Formoterol 80/4.5 MDI IH SCH ×2 (07:43→21:27)
[2018-07-15] MEDS ORDERED: Potassium Chloride Elixir 20 MEQ/15 ML UDC PO ONE (08:01)
--- NOTE | 2018-07-15 09:01 | Internal Med Progress Note ---
<Rosa Romero - Last Filed: 07/15/18 08:59> Hospitalist Progress Note - Encounter Date of Encounter: 07/15/18 Time of Encounter: 08:40 - Subjective Interval History: Patient seen and examined while she was sitting up in bed. Patient denied melena, hematechezia, hematuria, fever, chills. She has shortness of breath that is chronic to her. She continues to have some epigastric pain but it is overall improved from admission. She is not tolerating the clear liquid diet very well. Patient's hemoglobin has been slowly decreasing without obvious bleeding. Will plan to consult G.I. in the morning for possible EGD. - Exam Vitals: Temp Pulse Resp BP Pulse Ox 98.8 F 78 18 158/69 91 07/15/18 06:44 07/15/18 06:44 07/15/18 07:43 07/15/18 06:44 07/15/18 07:43 Exam: Gen.: Vitals noted. No acute distress. AAOx3 HEENT: oropharynx clear, Normocephalic, atraumatic Cardiac: RRR, no murmur, +S1/S2 Pulmonary: CTA bilaterally, no wheezes, rales or rhonchi, equal chest expansion Abdomen: soft, epigastric tender, Bowel sounds noted, no guarding MSK: ROM intact, no joint swelling noted Extremities: no BLE edema, nontender calf, no cyanosis or clubbing Neuro: A&Ox3, moves all extremities, no focal deficits Psych: Appropriate mood and behavior - Assessment and Plan (1) Acute pancreatitis Current Visit: Yes Status: Acute Assessment and Plan: Acute pancreatitis -patient with 3 prior acute pancreatitis hospitalizations -etiology has been determined however may be secondary to recent codeine use for cough. Prior acute pancreatitis was secondary to the blood pressure medication that had been stopped according to the patient. -abdominal CT demonstrating Vijay pancreatic fat stranding especially around the head and neck of the pancreas. Mild duodenal wall thickening involving 2nd and 3rd duodenum. -Afebrile, WBC WNL -lipase 327 ( > 1800 on admission), amylase 399 -calcium and triglycerides not elevated -repeat abdominal CT showing increased severity of inflammatory changes related to pancreatitis but no pseudo cyst. Plan: -patient on clear liquid diet. Epigastric pain improving but is still present. If she does not tolerate breakfast and will make her NPO. She will definitely be NPO at midnight for G.I. consult the morning for possible EGD. -will continue pain medication management -will continue supportive care as she is improving (2) Hypothyroidism Current Visit: No Status: Chronic Assessment and Plan: History of hyperthyroidism taking levothyroxine -continue home medication (3) Diabetes mellitus, type II Current Visit: No Status: Chronic Assessment and Plan: History of diabetes taking insulin -glucose controlled -continue medium dose sliding scale insulin -continue Accu checks -diabetic diet when able (4) Hypertension Current Visit: No Status: Chronic Assessment and Plan: History of hypertension taking carvedilol, lisinopril -blood pressure stable -continue home BP meds (5) RAJENDRA (obstructive sleep apnea) Current Visit: No Status: Chronic Assessment and Plan: History of RAJENDRA using a CPAP at night -continue CPAP at bedtime (6) COPD (chronic obstructive pulmonary disease) Current Visit: Yes Status: Chronic Assessment and Plan: History of COPD taking Symbicort and albuterol. Not on oxygen. -CT showed a small bilateral pleural effusions Plan: -continue home inhalers -continue supplemental oxygen as needed -continue incentive spirometry (7) Left flank pain Current Visit: Yes Status: Acute Assessment and Plan: Resolved. Patient reports having left flank pain that started 2 nights ago. She additionally has had dysuria and pink tinged urine. -Concerning for nephrolithiasis in left kidney. She has never had a kidney stone. However do the symptoms and physical exam this is concerning. Her son has recently been treated for removal of a kidney stone. -Urinalysis showing moderate amount of blood and RBCs -left flank tenderness on physical exam -abdominal CT on admission did not show acute process surrounding kidneys -retroperitoneal ultrasound negative for kidney stones -Patient may have passed a kidney stone. The pain has resolved and so has the hematuria and dysuria. Will continue to monitor (8) Morbid obesity with BMI of 40.0-44.9, adult Current Visit: Yes Status: Chronic (9) DVT prophylaxis Current Visit: No Status: Acute Assessment and Plan: SCD No anticoagulation due to concern for bleeding (10) Anemia Current Visit: Yes Status: Suspected Assessment and Plan: Patient with hemoglobin that has slowly down trended. -Etiology is concerning for possible G.I. bleed such as gastric ulcer. Initially the decreasing hemoglobin was thought to be due to the volume resuscitation with IV fluids however this is unlikely as hemoglobin continues to decrease. -Hemoglobin 7.4 (11.4 on admission) -BUN WNL -no obvious active bleeding. -Patient has no history of gastric ulcers. Denies alcohol use and NSAID use. No family history of colon cancer. -blood typed and screened: O-negative -09/2014 colonoscopy with biopsies. Report cannot be pulled up due to [employer]. Patient reported that she had polyps and was told to have a repeat colonoscopy in 5 years. -Patient denies melena, hematechezia. Plan: -Protonix Q 12 H -NPO at midnight and will consult G.I. tomorrow morning for EGD -Monitor for bleeding -will transfuse if needed -continue to monitor hemoglobin and repeat this afternoon - Time Spent with Patient Total time spent is greater than 50% in coordination of care (as documented) at patient's floor/unit and/or counseling patient: Internal Medicine: Result - Labs CBC & Chem 7: 07/15/18 02:30 07/15/18 02:30 Labs: Short CBC 07/15/18 Range/Units 02:30 WBC 8.5 (4.3-11.1) K/mcL Hgb 7.4 L (11.5-15.4) g/dL Hct 22.6 L (35.3-44.9) % Plt Count 239 (140-400) K/mcL Neutrophils # 6.0 (1.6-8.9) K/mcL BMP 07/15/18 02:30 Sodium 137 Potassium 3.3 L Chloride 105 Carbon Dioxide 19 L BUN 9 Creatinine 0.59 L Glucose 169 H Calcium 8.4 L - ABG Interpretation ABG results: PT/INR, D-dimer PT 12.2 Seconds (9.4-12.1) H 07/08/18 12:53 Consult Discharge Plan - Plan Referrals: Carlo Acevedo DO [Primary Care Provider] - <Hai Killian - Last Filed: 07/15/18 17:37> Hospitalist Progress Note - Encounter Date of Encounter: 07/15/18 - Exam Vitals: Temp Pulse Resp BP Pulse Ox 100 F H 80 12 154/60 92 07/15/18 14:25 07/15/18 14:25 07/15/18 14:25 07/15/18 14:25 07/15/18 14:25 - Assessment and Plan (1) Hypothyroidism Current Visit: No Status: Chronic (2) DVT prophylaxis Current Visit: No Status: Acute (3) Diabetes mellitus, type II Current Visit: No Status: Chronic (4) Hypertension Current Visit: No Status: Chronic (5) RAJENDRA (obstructive sleep apnea) Current Visit: No Status: Chronic (6) Acute pancreatitis Current Visit: Yes Status: Acute (7) COPD (chronic obstructive pulmonary disease) Current Visit: Yes Status: Chronic (8) Left flank pain Current Visit: Yes Status: Acute (9) Morbid obesity with BMI of 40.0-44.9, adult Current Visit: Yes Status: Chronic (10) Anemia Current Visit: Yes Status: Suspected - Time Spent with Patient Total time spent is greater than 50% in coordination of care (as documented) at patient's floor/unit and/or counseling patient: Internal Medicine: Result - Labs CBC & Chem 7: 07/15/18 02:30 07/15/18 02:30 Labs: Short CBC 07/15/18 Range/Units 02:30 WBC 8.5 (4.3-11.1) K/mcL Hgb 7.4 L (11.5-15.4) g/dL Hct 22.6 L (35.3-44.9) % Plt Count 239 (140-400) K/mcL Neutrophils # 6.0 (1.6-8.9) K/mcL BMP 07/15/18 02:30 Sodium 137 Potassium 3.3 L Chloride 105 Carbon Dioxide 19 L BUN 9 Creatinine 0.59 L Glucose 169 H Calcium 8.4 L - ABG Interpretation ABG results: PT/INR, D-dimer PT 12.2 Seconds (9.4-12.1) H 07/08/18 12:53 - Attending Attestation I examined this patient and my medical decision-making was reviewed with the Resident Physician on 07/15/18. I agree with the documented findings, disposition and treatment plan as described except to the extent set forth below. Ms Barraza is currently admitted for acute pancreatitis. She continues to be anemic. She remains moderate to high risk due to potential for worsening clinical status. Ms Barraza is feeling OK but still has pain and nausea. No fever or chills. No CP. Still with L side pain. Not able to tolerate PO much. No diarrhea. Exam Alert Comfortable Mucus membranes dry Heart not tachy No wheeze but very dyspneic with movement Abd soft and nontender No edema I/P 1. Anemia - more dyspneic today. Transfuse unit of blood. Diurese after. NPO midnight. GI consult. ? if Ulcer 2. Pancreatitis - about the same. 3. Morbid obesity Further diagnoses and plan as above. <Rosa Romero - Last Filed: 07/15/18 08:59> (1) Acute pancreatitis Qualifiers: Pancreatitis type: drug induced Acute pancreatitis complication: no infection or necrosis Qualified Code(s): K85.30 - Drug induced acute pancreatitis without necrosis or infection (2) Hypothyroidism Qualifiers: Hypothyroidism type: acquired Qualified Code(s): E03.9 - Hypothyroidism, unspecified (3) Diabetes mellitus, type II Qualifiers: Diabetes mellitus exterminator termite insulin use: with exterminator termite use Diabetes mellitus complication status: without complication Qualified Code(s): E11.9 - Type 2 diabetes mellitus without complications; Z79.4 - terminal operations manager (current) use of insulin (4) Hypertension Qualifiers: Hypertension type: essential hypertension Qualified Code(s): I10 - Essential (primary) hypertension (6) COPD (chronic obstructive pulmonary disease) Qualifiers: COPD type: unspecified COPD Qualified Code(s): J44.9 - Chronic obstructive pulmonary disease, unspecified (10) Anemia Qualifiers: Anemia type: iron deficiency Iron deficiency anemia type: chronic blood loss Qualified Code(s): D50.0 - Iron deficiency anemia secondary to blood loss (chronic) <Hai Killian - Last Filed: 07/15/18 17:37> (1) Hypothyroidism Qualifiers: Hypothyroidism type: acquired Qualified Code(s): E03.9 - Hypothyroidism, unspecified (3) Diabetes mellitus, type II Qualifiers: Diabetes mellitus assisted insulin use: with assisted use Diabetes mellitus complication status: without complication Qualified Code(s): E11.9 - Type 2 diabetes mellitus without complications; Z79.4 - terminal operations manager (current) use of insulin (4) Hypertension Qualifiers: Hypertension type: essential hypertension Qualified Code(s): I10 - Essential (primary) hypertension (6) Acute pancreatitis Qualifiers: Pancreatitis type: drug induced Acute pancreatitis complication: no infection or necrosis Qualified Code(s): K85.30 - Drug induced acute pancreatitis without necrosis or infection (7) COPD (chronic obstructive pulmonary disease) Qualifiers: COPD type: unspecified COPD Qualified Code(s): J44.9 - Chronic obstructive pulmonary disease, unspecified (10) Anemia Qualifiers: Anemia type: iron deficiency Iron deficiency anemia type: chronic blood loss Qualified Code(s): D50.0 - Iron deficiency anemia secondary to blood loss (chronic)
[2018-07-15] MEDS: Isosorbide MONOnitrate (24 HR) 30 MG TAB.ER.24H PO SCH (09:03)
[2018-07-15] MEDS: Lisinopril 20 MG TABLET PO SCH (09:04)
[2018-07-15] MEDS: Fenofibrate 54 MG TABLET PO SCH (09:04)
[2018-07-15] MEDS ORDERED: Furosemide 40 MG/4 ML VIAL IVP ONE (10:02)
[2018-07-15] MEDS ORDERED: 0.9 % Sodium Chloride 250 ML ONE (11:24)
[2018-07-15] MEDS: 0.9 % Sodium Chloride 1,000 ML IVC SCH (14:36)
[2018-07-15 18:05] LABS: Hematocrit 26.1 % (35.3-44.9); Hemoglobin 8.5 g/dL (11.5-15.4)
[2018-07-15] MEDS: Benzonatate 100 MG CAPSULE PO PRN (20:29)
[2018-07-16] MEDS: Insulin LISPRO 300 UNITS/3 ML VIAL SQ SCH ×4 (00:09→18:47)
[2018-07-16 04:23] LABS: Basophils % 0.3 %; Eosinophils # 0.4 K/mcL (0.0-0.6); Eosinophils % 4.3 %; Hematocrit 25.5 % (35.3-44.9); Hemoglobin 8.5 g/dL (11.5-15.4); Immature Granulocytes % 2.9 % (0-4); Lymphocytes # 0.8 K/mcL (0.6-4.6); Mean Corpuscular HGB Conc 33.3 g/dL (31.6-35.5); Mean Corpuscular Hemoglobin 29.9 pg (28.0-33.3); Mean Corpuscular Volume 89.8 fL (83.0-100.0); Mean Platelet Volume 10.1 fL (9.4-12.4); Monocytes # 1.1 K/mcL (0.0-1.3); Monocytes % 10.9 %; Neutrophils # 7.1 K/mcL (1.6-8.9); Platelet Count 281 K/mcL (140-400); Red Blood Count 2.84 M/mcL (3.82-4.97); Red Cell Distribution Width 13.4 % (11.5-14.5); Segmented Neutrophils % 73.6 %
[2018-07-16 04:39] LABS: BUN/Creatinine Ratio 12 (6-26); Blood Urea Nitrogen 7 mg/dL (8-23); Calcium 8.7 mg/dL (8.6-10.3); Carbon Dioxide 22 mEq/L (23-29); Chloride 100 mEq/L (98-107); Glucose 228 mg/dL (70-105); Magnesium 1.3 mg/dL (1.6-2.6); Osmolality,Calculated 291 (280-300); Potassium 3.3 mEq/L (3.5-5.1); Sodium 138 mEq/L (136-145); eGFR For Non-African Americans > 60 (> 60)
[2018-07-16] MEDS: Pantoprazole 40 MG VIAL IVP SCH ×2 (05:44→18:39)
--- NOTE | 2018-07-16 08:46 | Internal Med Progress Note ---
Hospitalist Progress Note - Encounter Date of Encounter: 07/16/18 Time of Encounter: 08:46 - Exam Vitals: Temp Pulse Resp BP Pulse Ox 99.0 F 79 19 173/75 94 07/16/18 05:38 07/16/18 05:38 07/16/18 05:38 07/16/18 05:38 07/16/18 05:38 - Assessment and Plan (1) Hypothyroidism Current Visit: No Status: Chronic (2) DVT prophylaxis Current Visit: No Status: Acute (3) Diabetes mellitus, type II Current Visit: No Status: Chronic (4) Hypertension Current Visit: No Status: Chronic (5) RAJENDRA (obstructive sleep apnea) Current Visit: No Status: Chronic (6) Acute pancreatitis Current Visit: Yes Status: Acute (7) COPD (chronic obstructive pulmonary disease) Current Visit: Yes Status: Chronic (8) Left flank pain Current Visit: Yes Status: Acute (9) Morbid obesity with BMI of 40.0-44.9, adult Current Visit: Yes Status: Chronic (10) Anemia Current Visit: Yes Status: Suspected - Time Spent with Patient Total time spent is greater than 50% in coordination of care (as documented) at patient's floor/unit and/or counseling patient: Internal Medicine: Result - Labs CBC & Chem 7: 07/16/18 04:00 07/16/18 04:00 Labs: Short CBC 07/15/18 07/16/18 Range/Units 17:35 04:00 WBC 9.7 (4.3-11.1) K/mcL Hgb 8.5 L 8.5 L (11.5-15.4) g/dL Hct 26.1 L 25.5 L (35.3-44.9) % Plt Count 281 (140-400) K/mcL Neutrophils # 7.1 (1.6-8.9) K/mcL BMP 07/16/18 04:00 Sodium 138 Potassium 3.3 L Chloride 100 Carbon Dioxide 22 L BUN 7 L Creatinine 0.58 L Glucose 228 H Calcium 8.7 - ABG Interpretation ABG results: PT/INR, D-dimer PT 12.2 Seconds (9.4-12.1) H 07/08/18 12:53 Consult Discharge Plan - Plan Referrals: Carlo Acevedo DO [Primary Care Provider] - (1) Hypothyroidism Qualifiers: Hypothyroidism type: acquired Qualified Code(s): E03.9 - Hypothyroidism, unspecified (3) Diabetes mellitus, type II Qualifiers: Diabetes mellitus long-term insulin use: with terminal makeup operator use Diabetes mellitus complication status: without complication Qualified Code(s): E11.9 - Type 2 diabetes mellitus without complications; Z79.4 - shelter (current) use of insulin (4) Hypertension Qualifiers: Hypertension type: essential hypertension Qualified Code(s): I10 - Essential (primary) hypertension (6) Acute pancreatitis Qualifiers: Pancreatitis type: drug induced Acute pancreatitis complication: no infection or necrosis Qualified Code(s): K85.30 - Drug induced acute pancreatitis without necrosis or infection (7) COPD (chronic obstructive pulmonary disease) Qualifiers: COPD type: unspecified COPD Qualified Code(s): J44.9 - Chronic obstructive pulmonary disease, unspecified (10) Anemia Qualifiers: Anemia type: iron deficiency Iron deficiency anemia type: chronic blood loss Qualified Code(s): D50.0 - Iron deficiency anemia secondary to blood loss (chronic)
[2018-07-16] MEDS: Isosorbide MONOnitrate (24 HR) 30 MG TAB.ER.24H PO SCH (09:20)
[2018-07-16] MEDS: Lisinopril 20 MG TABLET PO SCH (09:21)
[2018-07-16] MEDS: Fenofibrate 54 MG TABLET PO SCH (09:21)
[2018-07-16] MEDS: Budesonide/Formoterol 80/4.5 MDI IH SCH ×2 (10:10→19:49)
[2018-07-16] MEDS ORDERED: OXYCODONE Oral CONC 10 MG/0.5 ML ORAL.SYG SL PRN (10:36)
[2018-07-16] MEDS: *HR* HYDROcodone/Acet 5/325 mg TABLET PO PRN (10:39)
--- NOTE | 2018-07-16 15:46 | Internal Med Progress Note ---
<Rosa Romero - Last Filed: 07/16/18 15:41> Hospitalist Progress Note - Encounter Date of Encounter: 07/16/18 Time of Encounter: 14:00 - Subjective Interval History: Patient seen and examined at bedside, she is alert and oriented times 3. She stated that her stomach is still bothering her and she is having some pain. She denies fever, chills, melena, hematechezia. She reports her shortness of breath is improved. She stated the gastroenterologists has seen her and told her she will have an EGD and colonoscopy tomorrow. - Exam Vitals: Temp Pulse Resp BP Pulse Ox 98.8 F 71 16 113/64 96 07/16/18 14:19 07/16/18 14:19 07/16/18 14:19 07/16/18 14:07/16/18 14:19 Exam: Gen.: Vitals noted. No acute distress. AAOx3 HEENT: oropharynx clear, Normocephalic, atraumatic Cardiac: RRR, no murmur, +S1/S2 Pulmonary: CTA bilaterally, no wheezes, rales or rhonchi, equal chest expansion Abdomen: soft, epigastric tender, Bowel sounds noted, no guarding MSK: no joint swelling noted Extremities: no BLE edema, nontender calf, no cyanosis or clubbing Neuro: A&Ox3, moves all extremities, no focal deficits Psych: Appropriate mood and behavior - Assessment and Plan (1) Acute pancreatitis Current Visit: Yes Status: Acute Assessment and Plan: Acute pancreatitis -patient with 3 prior acute pancreatitis hospitalizations -etiology has been determined however may be secondary to recent codeine use for cough. Prior acute pancreatitis was secondary to the blood pressure medication that had been stopped according to the patient. -abdominal CT demonstrating Vijay pancreatic fat stranding especially around the head and neck of the pancreas. Mild duodenal wall thickening involving 2nd and 3rd duodenum. -Afebrile, WBC WNL -lipase 327 ( > 1800 on admission), amylase 399 -calcium and triglycerides not elevated -repeat abdominal CT showing increased severity of inflammatory changes related to pancreatitis but no pseudo cyst. Plan: -Epigastric pain improving but is still present. Will continue with clear liquid diet and then NPO at midnight for endoscopy tomorrow. -will continue pain medication management -will continue supportive care as she is improving (2) Hypothyroidism Current Visit: No Status: Chronic Assessment and Plan: History of hyperthyroidism taking levothyroxine -continue home medication (3) Diabetes mellitus, type II Current Visit: No Status: Chronic Assessment and Plan: History of diabetes taking insulin -glucose controlled -continue medium dose sliding scale insulin -continue Accu checks -diabetic diet when able (4) Hypertension Current Visit: No Status: Chronic Assessment and Plan: History of hypertension taking carvedilol, lisinopril -blood pressure stable -continue home BP meds (5) RAJENDRA (obstructive sleep apnea) Current Visit: No Status: Chronic Assessment and Plan: History of RAJENDRA using a CPAP at night -continue CPAP at bedtime (6) COPD (chronic obstructive pulmonary disease) Current Visit: Yes Status: Chronic Assessment and Plan: History of COPD taking Symbicort and albuterol. Not on oxygen. -CT showed a small bilateral pleural effusions Plan: -continue home inhalers -continue supplemental oxygen as needed -continue incentive spirometry (7) Left flank pain Current Visit: Yes Status: Acute Assessment and Plan: Resolved. Patient reports having left flank pain that started 2 nights ago. She additionally has had dysuria and pink tinged urine. -Concerning for nephrolithiasis in left kidney. She has never had a kidney stone. However do the symptoms and physical exam this is concerning. Her son has recently been treated for removal of a kidney stone. -Urinalysis showing moderate amount of blood and RBCs -left flank tenderness on physical exam -abdominal CT on admission did not show acute process surrounding kidneys -retroperitoneal ultrasound negative for kidney stones -Patient may have passed a kidney stone. The pain has resolved and so has the hematuria and dysuria. Will continue to monitor (8) Morbid obesity with BMI of 40.0-44.9, adult Current Visit: Yes Status: Chronic (9) DVT prophylaxis Current Visit: No Status: Acute Assessment and Plan: SCD No anticoagulation due to concern for bleeding (10) Anemia Current Visit: Yes Status: Suspected Assessment and Plan: Patient with hemoglobin that has slowly down trended. -Etiology is concerning for possible G.I. bleed such as gastric ulcer or from the colon. Initially the decreasing hemoglobin was thought to be due to the volume resuscitation with IV fluids however this is unlikely as hemoglobin continues to decrease. -Hemoglobin 8.5 (11.4 on admission) -s/p 1 unit PRBC -stool occult negative -no obvious active bleeding. -Patient has no history of gastric ulcers. Denies alcohol use and NSAID use. No family history of colon cancer. -blood typed and screened: O-negative -09/2014 colonoscopy with biopsies. Report cannot be pulled up due to Plasmonix. Patient reported that she had polyps and was told to have a repeat colonoscopy in 5 years. -Patient denies melena, hematechezia. Plan: -gastroenterology consulted and will plan for EGD and colonoscopy tomorrow mo rning. Bowel prep ordered for today. -Protonix Q 12 H -NPO at midnight -Monitor for bleeding -will transfuse if needed - Time Spent with Patient Total time spent is greater than 50% in coordination of care (as documented) at patient's floor/unit and/or counseling patient: 25 - 35 minutes Plan of Care Discussed with: nurse Internal Medicine: Result - Labs CBC & Chem 7: 07/16/18 04:00 07/16/18 04:00 Labs: Short CBC 07/15/18 07/16/18 Range/Units 17:35 04:00 WBC 9.7 (4.3-11.1) K/mcL Hgb 8.5 L 8.5 L (11.5-15.4) g/dL Hct 26.1 L 25.5 L (35.3-44.9) % Plt Count 281 (140-400) K/mcL Neutrophils # 7.1 (1.6-8.9) K/mcL BMP 07/16/18 04:00 Sodium 138 Potassium 3.3 L Chloride 100 Carbon Dioxide 22 L BUN 7 L Creatinine 0.58 L Glucose 228 H Calcium 8.7 - ABG Interpretation ABG results: PT/INR, D-dimer PT 12.2 Seconds (9.4-12.1) H 07/08/18 12:53 Consult Discharge Plan - Plan Referrals: Carlo Acevedo DO [Primary Care Provider] - <Hai Killian - Last Filed: 07/16/18 19:44> Hospitalist Progress Note - Encounter Date of Encounter: 07/16/18 - Exam Vitals: Temp Pulse Resp BP Pulse Ox 98.8 F 73 18 157/77 96 07/16/18 14:19 07/16/18 19:37 07/16/18 19:37 07/16/18 19:37 07/16/18 19:37 - Assessment and Plan (1) Hypothyroidism Current Visit: No Status: Chronic (2) DVT prophylaxis Current Visit: No Status: Acute (3) Diabetes mellitus, type II Current Visit: No Status: Chronic (4) Hypertension Current Visit: No Status: Chronic (5) RAJENDRA (obstructive sleep apnea) Current Visit: No Status: Chronic (6) Acute pancreatitis Current Visit: Yes Status: Acute (7) COPD (chronic obstructive pulmonary disease) Current Visit: Yes Status: Chronic (8) Left flank pain Current Visit: Yes Status: Acute (9) Morbid obesity with BMI of 40.0-44.9, adult Current Visit: Yes Status: Chronic (10) Anemia Current Visit: Yes Status: Suspected - Time Spent with Patient Total time spent is greater than 50% in coordination of care (as documented) at patient's floor/unit and/or counseling patient: Internal Medicine: Result - Labs CBC & Chem 7: 07/16/18 04:00 07/16/18 04:00 Labs: Short CBC 07/16/18 Range/Units 04:00 WBC 9.7 (4.3-11.1) K/mcL Hgb 8.5 L (11.5-15.4) g/dL Hct 25.5 L (35.3-44.9) % Plt Count 281 (140-400) K/mcL Neutrophils # 7.1 (1.6-8.9) K/mcL BMP 07/16/18 04:00 Sodium 138 Potassium 3.3 L Chloride 100 Carbon Dioxide 22 L BUN 7 L Creatinine 0.58 L Glucose 228 H Calcium 8.7 - ABG Interpretation ABG results: PT/INR, D-dimer PT 12.2 Seconds (9.4-12.1) H 07/08/18 12:53 - Attending Attestation I examined this patient and my medical decision-making was reviewed with the Resident Physician on 07/16/18. I agree with the documented findings, disposition and treatment plan as described except to the extent set forth below. Ms Barraza is currently admitted for acute pancreatitis and anemia. She remains moderate to high risk due to potential for worsening clinical status. Ms Barraza is resting at this time. No fever or chills. To have endoscopy to [facility]. Exam alert Comfortable Mucus membranes dry Heart not tachy No wheeze abd unchanged No edema I/P 1. Acute pancreatitis 2. Anemia - endoscopy tomorrow Further diagnoses and plan as above. <Rosa Romero - Last Filed: 07/16/18 15:41> (1) Acute pancreatitis Qualifiers: Pancreatitis type: drug induced Acute pancreatitis complication: no infection or necrosis Qualified Code(s): K85.30 - Drug induced acute pancreatitis without necrosis or infection (2) Hypothyroidism Qualifiers: Hypothyroidism type: acquired Qualified Code(s): E03.9 - Hypothyroidism, unspecified (3) Diabetes mellitus, type II Qualifiers: Diabetes mellitus senior care insulin use: with senior care use Diabetes mellitus complication status: without complication Qualified Code(s): E11.9 - Type 2 diabetes mellitus without complications; Z79.4 - senior living (current) use of insulin (4) Hypertension Qualifiers: Hypertension type: essential hypertension Qualified Code(s): I10 - Essential (primary) hypertension (6) COPD (chronic obstructive pulmonary disease) Qualifiers: COPD type: unspecified COPD Qualified Code(s): J44.9 - Chronic obstructive pulmonary disease, unspecified (10) Anemia Qualifiers: Anemia type: iron deficiency Iron deficiency anemia type: chronic blood loss Qualified Code(s): D50.0 - Iron deficiency anemia secondary to blood loss (chronic) <Hai Killian - Last Filed: 07/16/18 19:44> (1) Hypothyroidism Qualifiers: Hypothyroidism type: acquired Qualified Code(s): E03.9 - Hypothyroidism, unspecified (3) Diabetes mellitus, type II Qualifiers: Diabetes mellitus termination clerk insulin use: with termination clerk use Diabetes mellitus complication status: without complication Qualified Code(s): E11.9 - Type 2 diabetes mellitus without complications; Z79.4 - terminal supervisor (current) use of insulin (4) Hypertension Qualifiers: Hypertension type: essential hypertension Qualified Code(s): I10 - Essential (primary) hypertension (6) Acute pancreatitis Qualifiers: Pancreatitis type: drug induced Acute pancreatitis complication: no infection or necrosis Qualified Code(s): K85.30 - Drug induced acute pancreatitis without necrosis or infection (7) COPD (chronic obstructive pulmonary disease) Qualifiers: COPD type: unspecified COPD Qualified Code(s): J44.9 - Chronic obstructive pulmonary disease, unspecified (10) Anemia Qualifiers: Anemia type: iron deficiency Iron deficiency anemia type: chronic blood loss Qualified Code(s): D50.0 - Iron deficiency anemia secondary to blood loss (chronic)
--- NOTE | 2018-07-16 15:56 | Gastroenterology Consult Note ---
<Mau Arvizu - Last Filed: 07/16/18 15:54> Date of Encounter: 07/16/18 Time of Encounter: 11:40 - Assessment and plan (1) Anemia Current Visit: Yes Status: Suspected Assessment and plan: On admission 07/08 Hgb 12.2 which dropped to 7.4 on 07/15 and this AM Hgb 8.5. Fecal occult blood test was negative 07/15. Continue to monitor CBC and transfuse PRBC as needed. Plan for EGD and colonoscopy tomorrow. Clear liquid diet today, no red or purple. NPO at midnight. If unable tolerate NuLytely please use MiraLAX prep. If not clear by 6 AM, give 2 tap water enemas. Qualifiers: Anemia type: iron deficiency Iron deficiency anemia type: chronic blood los s Qualified Code(s): D50.0 - Iron deficiency anemia secondary to blood loss (chronic) (2) Pancreatitis Current Visit: Yes Status: Acute Assessment and plan: Symptoms improved from admission. Continue clear liquid diet as tolerated. Consider IV fluids if unable to tolerate clear liquids. Continue pain control and anti-emetics. After EGD and colonoscopy, advance diet slowly as tolerated. Check IgG4, RAMAKRISHNA, and ionized calcium. Triglycerides 177 on 07/08. Qualifiers: Chronicity: acute Pancreatitis type: unspecified pancreatitis type Acute pancreatitis complication: unspecified Qualified Code(s): K85.90 - Acute pancreatitis without necrosis or infection, unspecified - Time Spent With Patient Total time spent is greater than 50% in coordination of care (as documented) at patient's floor/unit and/or counseling patient: GI History of Present Illness - Data of Consult Patient: known to practice within the last 3 years Consult date: 07/16/18 Requesting Physician: Hai Killian DO - Consult Narrative Reason for consult: Anemia History of present illness: Ms. Barraza is a 68 year old female with PMHx of hypothyroidism, Type 2 DM, obesity, fibromyalgia, hypertension, diastolic HF, mitral valve prolapse, RAJENDRA on CPAP who presented with complaints of abdominal pain that started suddenly with associated nausea and vomiting. CT A/P with peripancreatic fat stranding, especially about the head and neck of the pancreas, mild duodenal wall thickening involving 2nd and 3rd duodenum. Lipase elevated to >1800 on admission and down to 327 on 07/13. We were consulted to evaluate her anemia. On admission 07/08 Hgb 12.2 which dropped to 7.4 on 07/15 and this AM Hgb 8.5. Fecal occult blood test was negative 07/15. She does complain of epigstric pain today. Procedures: Colonoscopy 09/05/2014 Dr. Ayala with two tubular adenoma ranging 7-9 mm. NSAIDs: None Anticoagulation: None Past Med Surg Social Fam HX - Past Medical History Medical history: CHF, COPD, diabetes, fibromyalgia, hypertension, thyroid disease, valvular heart disease Additional medical history: MVP, RAJENDRA Psychiatric history: no psych history - Past Surgical History Surgical History: cholecystectomy, hysterectomy Additional surgical history: d&c - Social History Smoking Status: Former smoker Smokeless Tobacco Status: No Alcohol use: none Drug use: none - Family History Father Living Status: Hx Family Cardiac Disorders: Yes (HTN) Hx Family Respiratory Disorders: Yes (COPD, black lung) Hx Family Neurologic Disorders: Yes (Dementia) Brother Hx Family Cancer: Yes Mother Living Status: Hx Family Endocrine Disorder: Yes (DM) Hx Family Neurologic Disorders: Yes (stroke) - Gastrointestinal Gastrointestinal: Present: as per HPI - Constitutional Constitutional: as per HPI - EENT Eyes: as per HPI Ears: Present: as per HPI Nose, mouth and throat: Present: as per HPI - Cardiovascular Cardiovascular ROS: Present: as per HPI - Respiratory Respiratory IM: Present: as per HPI - Genitourinary Genitourinary: Absent: change in color, Urinary frequency - Neurological ROS Neurological GI: Present: as per HPI - Hematologic/Lymphatic Hematologic/Lymphatic pediatric: Present: as per HPI - Musculoskeletal Musculoskeletal ROS GI: Present: as per HPI - Integumentary Integumentary GI: Present: as per HPI - Psychiatric ROS Psychiatric GI: Present: as per HPI - Endocrine Endocrine IM: Present: as per HPI - Constitutional Vitals: Temp Pulse Resp BP Pulse Ox 98.8 F 71 16 113/64 96 07/16/18 14:19 07/16/18 14:19 07/16/18 14:19 07/16/18 14:07/16/18 14:19 General appearance: Present: cooperative, A&O X 3, no acute distress, answers questions appropriately - Head Head exam: Present: atraumatic, normocephalic - Eye Eye exam: Present: normal appearance, sclera anicteric - ENT ENT exam: Present: mucous membranes moist - Neck Neck exam general surgery: Present: normal inspection, trachea midline - Respiratory Respiratory exam: Present: decreased breath sounds, CTAB. Absent: rales, rhonchi, wheezes - Cardiovascular Cardiovascular exam: Present: RRR, +S1, +S2 - GI/Abdominal GI/Abdominal exam: Present: soft, tenderness (mild epigastric), no peritoneal signs. Absent: distended, firm, guarding - Rectal Rectal exam: Present: deferred - Extremities Exam Extremities exam: Present: warm - Neurological Exam Neurological exam: Present: no focal deficits - Psychiatric Psychiatric exam: Present: normal affect, normal mood - Skin Skin exam: Present: dry, intact, normal color, warm Results - Labs CBC & Chem 7: 07/16/18 04:00 07/16/18 04:00 Labs: Last Result Calcium 8.7 mg/dL (8.6-10.3) 07/16/18 04:00 Troponin I < 0.03 ng/mL (< 0.04) 07/08/18 12:53 Triglycerides 177 mg/dL (< 150) H 07/08/18 12:53 Stool Occult Blood Negative (Negative) 07/15/18 13:35 Entire Visit Hgb 8.5 g/dL (11.5-15.4) L 07/16/18 04:00 Hct 25.5 % (35.3-44.9) L 07/16/18 04:00 PT 12.2 Seconds (9.4-12.1) H 07/08/18 12:53 Total Bilirubin 0.4 mg/dL (0.3-1.0) 07/14/18 04:15 AST 21 Units/L (13-39) 07/14/18 04:15 ALT 17 Units/L (7-52) 07/14/18 04:15 Amylase 399 Units/L (29-103) H 07/08/18 12:53 Lipase 327 Units/L (11-82) H 07/13/18 12:32 - ABG ABG results: PT/INR, D-dimer PT 12.2 Seconds (9.4-12.1) H 07/08/18 12:53 Consult Discharge Plan - Plan Referrals: Carlo Acevedo DO [Primary Care Provider] - <Jorge L Moore - Last Filed: 07/16/18 19:49> Date of Encounter: 07/16/18 - Time Spent With Patient Total time spent is greater than 50% in coordination of care (as documented) at patient's floor/unit and/or counseling patient: GI History of Present Illness - Data of Consult Requesting Physician: Hai Killian DO - Consult Narrative History of present illness: Ms. Barraza is a 68 year old female - Constitutional Vitals: Temp Pulse Resp BP Pulse Ox 98.8 F 73 18 157/77 96 07/16/18 14:19 07/16/18 19:37 07/16/18 19:37 07/16/18 19:37 07/16/18 19:37 Results - Labs CBC & Chem 7: 07/16/18 04:00 07/16/18 04:00 Labs: Last Result Calcium 8.7 mg/dL (8.6-10.3) 07/16/18 04:00 Troponin I < 0.03 ng/mL (< 0.04) 07/08/18 12:53 Triglycerides 177 mg/dL (< 150) H 07/08/18 12:53 Stool Occult Blood Negative (Negative) 07/15/18 13:35 Entire Visit Hgb 8.5 g/dL (11.5-15.4) L 07/16/18 04:00 Hct 25.5 % (35.3-44.9) L 07/16/18 04:00 PT 12.2 Seconds (9.4-12.1) H 07/08/18 12:53 Total Bilirubin 0.4 mg/dL (0.3-1.0) 07/14/18 04:15 AST 21 Units/L (13-39) 07/14/18 04:15 ALT 17 Units/L (7-52) 07/14/18 04:15 Amylase 399 Units/L (29-103) H 07/08/18 12:53 Lipase 327 Units/L (11-82) H 07/13/18 12:32 - ABG ABG results: PT/INR, D-dimer PT 12.2 Seconds (9.4-12.1) H 07/08/18 12:53 - Attending Attestation I have personally performed a face to face evaluation on this patient. I have reviewed and agree with the care plan. History and Exam by me shows: Patient seen patient the admitted because of acute pancreatitis. Asked to see because of her anemia no overt GI bleeding stool occult blood is negative. On examination: Alert and awake not in distress. Assessment: Patient with acute p ancreatitis unclear etiology gallbladder is already out no drinking. #2 anemia most probably dilutional. Recommendation: We will do an EGD because of her upper abdomen to make sure no gastric etiology for her anemia/pain. No need for endoscopy. We will do an an MRCP to make sure there is no CBD stone.
[2018-07-16] MEDS ORDERED: Potassium Chloride Elixir 20 MEQ/15 ML UDC PO ONE (16:38)
[2018-07-16] MEDS ORDERED: SODIUM CHLORIDE/NAHCO3/KCL/PEG 4,000 ML SOLN.RECON PO ONE (17:00)
[2018-07-16] MEDS: Benzonatate 100 MG CAPSULE PO PRN (18:52)
[2018-07-16 19:40] LABS: VBG Ionized Calcium 1.18 mmol/L (1.15-1.35)
[2018-07-17] MEDS: Insulin LISPRO 300 UNITS/3 ML VIAL SQ SCH ×5 (00:37→23:24)
[2018-07-17 04:14] LABS: Basophils # 0.1 K/mcL (0.0-0.2); Basophils % 0.4 %; Eosinophils # 0.6 K/mcL (0.0-0.6); Eosinophils % 5.6 %; Hematocrit 26.9 % (35.3-44.9); Hemoglobin 8.8 g/dL (11.5-15.4); Immature Granulocytes % 2.3 % (0-4); Immature Platelets 2.3 % (1.1-6.1); Lymphocytes # 0.8 K/mcL (0.6-4.6); Lymphocytes % 7.5 %; Mean Corpuscular HGB Conc 32.7 g/dL (31.6-35.5); Mean Corpuscular Hemoglobin 29.3 pg (28.0-33.3); Mean Corpuscular Volume 89.7 fL (83.0-100.0); Mean Platelet Volume 9.9 fL (9.4-12.4); Monocytes # 1.1 K/mcL (0.0-1.3); Monocytes % 9.6 %; Neutrophils # 8.3 K/mcL (1.6-8.9); Platelet Count 340 K/mcL (140-400); Red Cell Distribution Width 13.5 % (11.5-14.5); Segmented Neutrophils % 74.6 %
[2018-07-17 04:37] LABS: BUN/Creatinine Ratio 16 (6-26); Blood Urea Nitrogen 9 mg/dL (8-23); Calcium 8.9 mg/dL (8.6-10.3); Carbon Dioxide 23 mEq/L (23-29); Chloride 103 mEq/L (98-107); Glucose 185 mg/dL (70-105); Magnesium 1.4 mg/dL (1.6-2.6); Osmolality,Calculated 289 (280-300); Potassium 3.4 mEq/L (3.5-5.1); Sodium 138 mEq/L (136-145); eGFR For Non-African Americans > 60 (> 60)
[2018-07-17] MEDS: Pantoprazole 40 MG VIAL IVP SCH ×2 (06:14→18:13)
[2018-07-17] MEDS: Budesonide/Formoterol 80/4.5 MDI IH SCH ×2 (07:46→19:57)
[2018-07-17] MEDS ORDERED: Potassium Chloride Elixir 20 MEQ/15 ML UDC PO ONE (07:47)
[2018-07-17] MEDS: Isosorbide MONOnitrate (24 HR) 30 MG TAB.ER.24H PO SCH (08:46)
[2018-07-17] MEDS: Lisinopril 20 MG TABLET PO SCH (08:47)
[2018-07-17] MEDS: Fenofibrate 54 MG TABLET PO SCH (08:47)
--- NOTE | 2018-07-17 09:09 | Internal Med Progress Note ---
<Rosa Romero - Last Filed: 07/17/18 09:06> Hospitalist Progress Note - Encounter Date of Encounter: 07/17/18 Time of Encounter: 08:45 - Subjective Interval History: Patient seen and examined at bedside she is resting comfortably sitting up in bed. She is perhaps sharp. She has plans for EGD this afternoon at 1 PM. She is no longer going to have the colonoscopy. She denied fever, chills, shortness of breath, chest pain. She reports epigastric pain has improved overall however it worsens with food and drink. - Exam Vitals: Temp Pulse Resp BP Pulse Ox 98.4 F 73 17 173/75 96 07/17/18 07:18 07/17/18 07:18 07/17/18 07:47 07/17/18 07:18 07/17/18 07:47 Exam: Gen.: Vitals noted. No acute distress. AAOx3 HEENT: oropharynx clear, Normocephalic, atraumatic Cardiac: RRR, no murmur, +S1/S2 Pulmonary: CTA bilaterally, no wheezes, rales or rhonchi, equal chest expansion Abdomen: soft, epigastric tender, Bowel sounds noted, no guarding MSK: no joint swelling noted Extremities: no BLE edema, nontender calf, no cyanosis or clubbing Neuro: A&Ox3, moves all extremities, no focal deficits Psych: Appropriate mood and behavior - Assessment and Plan (1) Acute pancreatitis Current Visit: Yes Status: Acute Assessment and Plan: Acute pancreatitis -patient with 3 prior acute pancreatitis hospitalizations -etiology has been determined however may be secondary to recent codeine use for cough. Prior acute pancreatitis was secondary to the blood pressure medication that had been stopped according to the patient. -abdominal CT demonstrating Vijay pancreatic fat stranding especially around the head and neck of the pancreas. Mild duodenal wall thickening involving 2nd and 3rd duodenum. -Afebrile, WBC 11.2 increased -lipase 327 ( > 1800 on admission), amylase 399 -calcium and triglycerides not elevated -repeat abdominal CT showing increased severity of inflammatory changes related to pancreatitis but no pseudo cyst. Plan: -Epigastric pain improving but is still present. EGD at 1 PM. -will continue pain medication management -will continue supportive care as she is improving (2) Hypothyroidism Current Visit: No Status: Chronic Assessment and Plan: History of hyperthyroidism taking levothyroxine -continue home medication (3) Diabetes mellitus, type II Current Visit: No Status: Chronic Assessment and Plan: History of diabetes taking insulin -glucose controlled -continue medium dose sliding scale insulin -continue Accu checks -diabetic diet when able (4) Hypertension Current Visit: No Status: Chronic Assessment and Plan: History of hypertension taking carvedilol, lisinopril -blood pressure stable -continue home BP meds (5) RAJENDRA (obstructive sleep apnea) Current Visit: No Status: Chronic Assessment and Plan: History of RAJENDRA using a CPAP at night -continue CPAP at bedtime (6) COPD (chronic obstructive pulmonary disease) Current Visit: Yes Status: Chronic Assessment and Plan: History of COPD taking Symbicort and albuterol. Not on oxygen. -CT showed a small bilateral pleural effusions Plan: -continue home inhalers -continue supplemental oxygen as needed -continue incentive spirometry (7) Left flank pain Current Visit: Yes Status: Acute Assessment and Plan: Resolved. Patient reports having left flank pain that started 2 nights ago. She additionally has had dysuria and pink tinged urine. -Concerning for nephrolithiasis in left kidney. She has never had a kidney stone. However do the symptoms and physical exam this is concerning. Her son has recently been treated for removal of a kidney stone. -Urinalysis showing moderate amount of blood and RBCs -left flank tenderness on physical exam -abdominal CT on admission did not show acute process surrounding kidneys -retroperitoneal ultrasound negative for kidney stones -Patient may have passed a kidney stone. The pain has resolved and so has the hematuria and dysuria. Will continue to monitor (8) Morbid obesity with BMI of 40.0-44.9, adult Current Visit: Yes Status: Chronic (9) DVT prophylaxis Current Visit: No Status: Acute Assessment and Plan: SCD No anticoagulation due to concern for bleeding (10) Anemia Current Visit: Yes Status: Suspected Assessment and Plan: Patient with hemoglobin that has slowly down trended. -Etiology is concerning for possible G.I. bleed such as gastric ulcer or from the colon. Initially the decreasing hemoglobin was thought to be due to the volume resuscitation with IV fluids however this is unlikely as hemoglobin continues to decrease. -Hemoglobin 8.8 (11.4 on admission) -s/p 1 unit PRBC -stool occult negative -no obvious active bleeding. -Patient has no history of gastric ulcers. Denies alcohol use and NSAID use. No family history of colon cancer. -blood typed and screened: O-negative -09/2014 colonoscopy with biopsies. Report cannot be pulled up due to [employer]. Patient reported that she had polyps and was told to have a repeat colonoscopy in 5 years. -Patient denies melena, hematechezia. Plan: -gastroenterology consulted and will plan for EGD today. Colonoscopy canceled. -Protonix Q 12 H -NPO at midnight -Monitor for bleeding -will transfuse if needed - Time Spent with Patient Total time spent is greater than 50% in coordination of care (as documented) at patient's floor/unit and/or counseling patient: Internal Medicine: Result - Labs CBC & Chem 7: 07/17/18 03:59 07/17/18 03:59 Labs: Short CBC 07/17/18 Range/Units 03:59 WBC 11.2 H (4.3-11.1) K/mcL Hgb 8.8 L (11.5-15.4) g/dL Hct 26.9 L (35.3-44.9) % Plt Count 340 (140-400) K/mcL Neutrophils # 8.3 (1.6-8.9) K/mcL BMP 07/17/18 03:59 Sodium 138 Potassium 3.4 L Chloride 103 Carbon Dioxide 23 BUN 9 Creatinine 0.56 L Glucose 185 H Calcium 8.9 - ABG Interpretation ABG results: PT/INR, D-dimer PT 12.2 Seconds (9.4-12.1) H 07/08/18 12:53 Consult Discharge Plan - Plan Referrals: Carlo Acevedo DO [Primary Care Provider] - <Hai Killian - Last Filed: 07/17/18 15:11> Hospitalist Progress Note - Encounter Date of Encounter: 07/17/18 - Exam Vitals: Temp Pulse Resp BP Pulse Ox 97.5 F L 74 16 103/70 96 07/17/18 14:53 07/17/18 14:53 07/17/18 14:53 07/17/18 14:53 07/17/18 14:53 - Assessment and Plan (1) Hypothyroidism Current Visit: No Status: Chronic (2) DVT prophylaxis Current Visit: No Status: Acute (3) Diabetes mellitus, type II Current Visit: No Status: Chronic (4) Hypertension Current Visit: No Status: Chronic (5) RAJENDRA (obstructive sleep apnea) Current Visit: No Status: Chronic (6) Acute pancreatitis Current Visit: Yes Status: Acute (7) COPD (chronic obstructive pulmonary disease) Current Visit: Yes Status: Chronic (8) Left flank pain Current Visit: Yes Status: Acute (9) Morbid obesity with BMI of 40.0-44.9, adult Current Visit: Yes Status: Chronic (10) Anemia Current Visit: Yes Status: Suspected - Time Spent with Patient Total time spent is greater than 50% in coordination of care (as documented) at patient's floor/unit and/or counseling patient: Internal Medicine: Result - Labs CBC & Chem 7: 07/17/18 03:59 07/17/18 03:59 Labs: Short CBC 07/17/18 Range/Units 03:59 WBC 11.2 H (4.3-11.1) K/mcL Hgb 8.8 L (11.5-15.4) g/dL Hct 26.9 L (35.3-44.9) % Plt Count 340 (140-400) K/mcL Neutrophils # 8.3 (1.6-8.9) K/mcL BMP 07/17/18 03:59 Sodium 138 Potassium 3.4 L Chloride 103 Carbon Dioxide 23 BUN 9 Creatinine 0.56 L Glucose 185 H Calcium 8.9 - ABG Interpretation ABG results: PT/INR, D-dimer PT 12.2 Seconds (9.4-12.1) H 07/08/18 12:53 - Attending Attestation I examined this patient and my medical decision-making was reviewed with the Resident Physician on 07/17/18. I agree with the documented findings, disposition and treatment plan as described except to the extent set forth below. Ms Barraza is currently admitted for acute pancreatitis and anemia. She is to have EGD today. She remains moderate to high risk due to potential for worsening clinical status. Ms Barraza is waiting for EGD. Pain seems a little better today. No fever or chills. No diarrhea. Was tolerating clear liquids. Exam alert Comfortable Mucus membranes dry Heart reg No wheeze Abd with some tenderness the same Some edema unchanged. I/P 1. Acute pancreatitis - appears to be slowly improving. Will advance diet as able. 2. Anemia - to have EGD today. Further diagnoses and plan as above. <Rosa Romero - Last Filed: 07/17/18 09:06> (1) Acute pancreatitis Qualifiers: Pancreatitis type: drug induced Acute pancreatitis complication: no infection or necrosis Qualified Code(s): K85.30 - Drug induced acute pancreatitis without necrosis or infection (2) Hypothyroidism Qualifiers: Hypothyroidism type: acquired Qualified Code(s): E03.9 - Hypothyroidism, unspecified (3) Diabetes mellitus, type II Qualifiers: Diabetes mellitus mcc insulin use: with mcc use Diabetes mellitus complication status: without complication Qualified Code(s): E11.9 - Type 2 diabetes mellitus without complications; Z79.4 - shelter (current) use of insulin (4) Hypertension Qualifiers: Hypertension type: essential hypertension Qualified Code(s): I10 - Essential (primary) hypertension (6) COPD (chronic obstructive pulmonary disease) Qualifiers: COPD type: unspecified COPD Qualified Code(s): J44.9 - Chronic obstructive pulmonary disease, unspecified (10) Anemia Qualifiers: Anemia type: iron deficiency Iron deficiency anemia type: chronic blood loss Qualified Code(s): D50.0 - Iron deficiency anemia secondary to blood loss (chronic) <Hai Killian - Last Filed: 07/17/18 15:11> (1) Hypothyroidism Qualifiers: Hypothyroidism type: acquired Qualified Code(s): E03.9 - Hypothyroidism, unspecified (3) Diabetes mellitus, type II Qualifiers: Diabetes mellitus mcc insulin use: with mcc use Diabetes mellitus complication status: without complication Qualified Code(s): E11.9 - Type 2 diabetes mellitus without complications; Z79.4 - shelter (current) use of insulin (4) Hypertension Qualifiers: Hypertension type: essential hypertension Qualified Code(s): I10 - Essential (primary) hypertension (6) Acute pancreatitis Qualifiers: Pancreatitis type: drug induced Acute pancreatitis complication: no infection or necrosis Qualified Code(s): K85.30 - Drug induced acute pancreatitis without necrosis or infection (7) COPD (chronic obstructive pulmonary disease) Qualifiers: COPD type: unspecified COPD Qualified Code(s): J44.9 - Chronic obstructive pulmonary disease, unspecified (10) Anemia Qualifiers: Anemia type: iron deficiency Iron deficiency anemia type: chronic blood loss Qualified Code(s): D50.0 - Iron deficiency anemia secondary to blood loss (chronic)
--- NOTE | 2018-07-17 13:25 | Anesthesia Evaluation PreOp ---
Date of Encounter: 07/17/18 Time of Encounter: 13:23 - Past History Planned Operation: EGD Cardiac History: CHF (diastolic CHF), Other (MVP) Pulmonary History: Former smoker (quit 20yrs ago), COPD, RAJENDRA Dx (+ CPAP) [employer] History: Other (Fibroymyalgia, VERtigo) Other Medical History: Diabetes Type II, Thyroid (Hypothyroidism), Other (Acute Pancreatitis) Anesthesia History: No Prior Anesthetic Complications, Past Anesthesia (Maribell, Hyster, D&C) Alcohol Use: none Drug use: none Medications and Allergies Insulin ASPART [Novolog Flexpen] 15 unit SQ TIDWM 07/06/15 [History] Lisinopril [Zestril] 40 mg PO QAM 07/06/15 [History] Metformin HCl [Metformin ER Gastric] 500 mg PO BID 07/06/15 [History] raNITIdine HCl [Zantac] 150 mg PO BID 07/06/15 [History] Carvedilol 12.5 mg PO BID 04/25/16 [History] Furosemide [Lasix] 20 mg PO QAM 04/25/16 [History] Marco A's Wort 300 mg PO BID 04/25/16 [History] Budesonide/Formoterol 80/4.5 [Symbicort 80/4.5] 1 puff IH Q12H #1 puff 04/27/16 [Rx] Albuterol Sulfate [Albuterol Inhaler] 2 puff IH Q4H PRN 07/09/18 [History] Fenofibrate [Tricor] 54 mg PO DAILY 07/09/18 [History] Insulin Degludec [Tresiba] 30 unit SQ HS 07/09/18 [History] Isosorbide MONOnitrate (24 HR) [Imdur] 30 mg PO DAILY 07/09/18 [History] Levothyroxine [Synthroid] 125 mcg PO DAILY 07/09/18 [History] Rosuvastatin Calcium [Crestor] 20 mg PO DAILY 07/09/18 [History] Allergy/AdvReac Type Severity Reaction Status Date / Time atorvastatin [From Lipitor] AdvReac Muscle Pain Verified 03/04/18 11:19 - Meds/Allergy Pre-op Review Medications Reviewed: Yes Allergies Reviewed: Yes Beta Blockers on Current Med List: Yes (Carvedilol) If Beta Blockers taken, Date/Time (Last Dose taken): 07/17/2018 @ 0847 Anesthesia Results - Labs 07/17/18 03:59 07/17/18 03:59 Laboratory Results Impressions Chest X-Ray 07/08/18 12:40 IMPRESSION: No evidence for acute cardiopulmonary process. D/ / Richard Dunn MD / Richard Dunn MD Interpreting Provider: Richard Dunn MD Abdomen/Pelvis CT 07/08/18 13:50 IMPRESSION: Peripancreatic fat stranding, especially about the head and neck of the pancreas. Mild duodenal wall thickening involving 2nd and 3rd duodenum. Differential considerations would include acute pancreatitis with secondary duodenitis or acute duodenitis with secondary pancreatitis. No evidence for bowel obstruction. No evidence for pancreatic necrosis, focal fluid collection or pancreatic ductal dilatation. Trace free fluid dependently within the pelvis, nonspecific but likely reactive relating to the upper abdominal acute process. D/ / 07/08/2018 14:43:55 Richard Dunn MD / [email or web address] Interpreting Provider: Richard Dunn MD - Imaging EKG: report reviewed (Sinus rhythm Low voltage, precordial leads 51 bpm - Electronically Signed On 07-09-2018 10:18:11 EDT by Nicholas Shafer) Anesthesia Exam Vital Signs Temp Pulse Resp BP Pulse Ox 07/17/18 11:31 98.0 F 72 16 156/57 96 07/17/18 07:47 17 96 07/17/18 07:18 98.4 F 73 16 173/75 94 07/17/18 03:43 98.5 F 73 16 161/72 93 07/16/18 19:51 16 96 07/16/18 19:37 73 18 157/77 96 07/16/18 14:19 98.8 F 71 16 113/64 96 07/16/18 14:08 99.0 F 64 16 136/83 98 Intake and Output 07/16/18 07/17/18 07/17/18 23:59 07:59 15:59 Intake Total 0 / 0 0 / 0 Output Total 0 / 0 100 / 100 Balance 0 / 0 0 / 0 -100 / -100 Intake: Oral 0 / 0 0 / 0 Output: Urine 0 / 0 100 / 100 Other: Meal NPO # Voids 1 2 # Bowel Movements 1 0 0 Weight 106.6 kg Blood Glucose* 254 185 197 Patient Weight 07/17/18 23:59 Weight 106.6 kg Height: 5'2" Weight: 235# BMI = 43 NPO (# of Hours): MNoc - HEENT Pupil (Motor): Pupils equal, EOMI Mallampati: III Teeth: Missing, Edentulous (upper) Oral Opening: Greater than 3 - [employer] LOC: Oriented [employer] Motor: Normal RUE, Normal LUE, Normal RLE, Normal LLE, Normal Face [employer] Sensory: Normal: RUE, LUE, RLE, LLE, Face - Cardiac Rhythm: Regular Murmur: Systolic - Pulmonary Breath Sounds: bilateral Clear Respiratory Effort: Symmetrical Anesthesia Assess/Plan ASA Score: 3 (MO/BMI = 43, DM, Hypothyroidism, RAJENDRA) Level of consciousness: Cooperative, Oriented, Tranquil Anesthetic Plan: MAC Monitoring Plan: Standard Monitors Recovery Plan: Other Anes Supervising Prov Stmt: PT seen/evaluated,R&B Discussed, questions answered and consent obtained. Robin Aragon MD
[2018-07-17] MEDS ORDERED: *HR* Propofol 200 MG/20 ML VIAL IVP ONE (13:54)
[2018-07-17] MEDS ORDERED: Lidocaine -MPF 2% 2 ML VIAL ONE (13:54)
--- NOTE | 2018-07-17 14:49 | Gastroenterology Progress Note ---
Date of Encounter: 07/17/18 Time of Encounter: 10:20 - Assessment and plan (1) Anemia Current Visit: Yes Status: Suspected Assessment and plan: On admission 07/08 Hgb 12.2 which dropped to 7.4 on 07/15 and this AM Hgb 8.8. Fecal occult blood test was negative 07/15. Continue to monitor CBC and transfuse PRBC as needed. Plan for EGD today to r/o esophagitis, gastritis, duodenitis, PUD, MW tear, or AVM. Will hold on colonoscopy. Dilution may be contributing as well. Qualifiers: Anemia type: iron deficiency Iron deficiency anemia type: chronic blood loss Qualified Code(s): D50.0 - Iron deficiency anemia secondary to blood loss (chronic) (2) Pancreatitis Current Visit: Yes Status: Acute Assessment and plan: Symptoms improved from admission. Continue clear liquid diet as tolerated. Consider IV fluids if unable to tolerate clear liquids. Continue pain control and anti-emetics. After EGD, advance diet slowly as tolerated. IgG4 and RAMAKRISHNA pending. Ionized calcium 1.3. Triglycerides 177 on 07/08. Qualifiers: Chronicity: acute Pancreatitis type: unspecified pancreatitis type Acute pancreatitis complication: unspecified Qualified Code(s): K85.90 - Acute pancreatitis without necrosis or infection, unspecified - Time Spent With Patient Total time spent is greater than 50% in coordination of care (as documented) at patient's floor/unit and/or counseling patient: - Subjective Interval history: Patient continues to report epigastric pain, but states it is improving. Patient is resting comfortably in bed. - Constitutional Vitals: Temp Pulse Resp BP Pulse Ox 97.5 F L 76 16 142/63 96 07/17/18 14:31 07/17/18 14:31 07/17/18 14:31 07/17/18 14:31 07/17/18 14:31 General appearance: Present: cooperative, A&O X 3, no acute distress, answers questions appropriately - Head Head exam: Present: atraumatic, normocephalic - Eye Eye exam: Present: normal appearance, sclera anicteric - ENT ENT exam: Present: mucous membranes dry - Neck Neck exam general surgery: Present: normal inspection, trachea midline - Respiratory Respiratory exam: Present: CTAB. Absent: rales, rhonchi - Cardiovascular Cardiovascular exam: Present: RRR, +S1, +S2 - GI/Abdominal GI/Abdominal exam: Present: soft, tenderness (epigastic), no peritoneal signs. Absent: distended, firm, guarding - Rectal Rectal exam: Present: deferred - Extremities Exam Extremities exam: Present: warm - Neurological Exam Neurological exam: Present: no focal deficits - Psychiatric Psychiatric exam: Present: normal affect, normal mood - Skin Skin exam: Present: dry, intact, normal color, warm Results - Labs CBC & Chem 7: 07/17/18 03:59 07/17/18 03:59 Labs: Last Result Calcium 8.9 mg/dL (8.6-10.3) 07/17/18 03:59 Troponin I < 0.03 ng/mL (< 0.04) 07/08/18 12:53 Triglycerides 177 mg/dL (< 150) H 07/08/18 12:53 Stool Occult Blood Negative (Negative) 07/15/18 13:35 Entire Visit Hgb 8.8 g/dL (11.5-15.4) L 07/17/18 03:59 Hct 26.9 % (35.3-44.9) L 07/17/18 03:59 PT 12.2 Seconds (9.4-12.1) H 07/08/18 12:53 Total Bilirubin 0.4 mg/dL (0.3-1.0) 07/14/18 04:15 AST 21 Units/L (13-39) 07/14/18 04:15 ALT 17 Units/L (7-52) 07/14/18 04:15 Amylase 399 Units/L (29-103) H 07/08/18 12:53 Lipase 327 Units/L (11-82) H 07/13/18 12:32 - ABG ABG results: PT/INR, D-dimer PT 12.2 Seconds (9.4-12.1) H 07/08/18 12:53 Consult Discharge Plan - Plan Referrals: Carlo Acevedo DO [Primary Care Provider] -
[2018-07-18 04:11] LABS: Basophils % 0.2 %; Eosinophils # 0.4 K/mcL (0.0-0.6); Hemoglobin 8.1 g/dL (11.5-15.4); Lymphocytes # 0.8 K/mcL (0.6-4.6); Lymphocytes % 9.5 %; Mean Corpuscular HGB Conc 32.4 g/dL (31.6-35.5); Mean Corpuscular Hemoglobin 29.5 pg (28.0-33.3); Mean Corpuscular Volume 90.9 fL (83.0-100.0); Monocytes # 0.8 K/mcL (0.0-1.3); Monocytes % 8.9 %; Neutrophils # 6.6 K/mcL (1.6-8.9); Platelet Count 284 K/mcL (140-400); Red Blood Count 2.75 M/mcL (3.82-4.97); Red Cell Distribution Width 13.7 % (11.5-14.5); Segmented Neutrophils % 74.4 %
[2018-07-18 04:30] LABS: BUN/Creatinine Ratio 18 (6-26); Blood Urea Nitrogen 11 mg/dL (8-23); Calcium 8.8 mg/dL (8.6-10.3); Carbon Dioxide 22 mEq/L (23-29); Chloride 103 mEq/L (98-107); Glucose 220 mg/dL (70-105); Magnesium 1.4 mg/dL (1.6-2.6); Osmolality,Calculated 292 (280-300); Potassium 3.6 mEq/L (3.5-5.1); Sodium 138 mEq/L (136-145); eGFR For Non-African Americans > 60 (> 60)
[2018-07-18] MEDS: Pantoprazole 40 MG VIAL IVP SCH (05:37)
[2018-07-18] MEDS: Insulin LISPRO 300 UNITS/3 ML VIAL SQ SCH ×2 (05:37→12:13)
[2018-07-18] MEDS: Isosorbide MONOnitrate (24 HR) 30 MG TAB.ER.24H PO SCH (07:44)
[2018-07-18] MEDS: Fenofibrate 54 MG TABLET PO SCH (07:44)
[2018-07-18] MEDS: Lisinopril 20 MG TABLET PO SCH (07:44)
[2018-07-18] MEDS: Budesonide/Formoterol 80/4.5 MDI IH SCH (07:54)
[2018-07-18 13:50] LABS: Immunoglobulin G Subclass 4 <1 mg/dL (1-123)
--- NOTE | 2018-07-18 14:37 | Discharge Summary ---
<Hai Killian - Last Filed: 07/18/18 14:47> Orders not resulted at time of discharge: Pending orders 07/16/18 18:48 RAMAKRISHNA IgG ITZEL rflx IFA Routine Immunoglobulin G Subclass 4 Routine 07/17/18 15:07 Surgical Pathology [PTH] Routine Date of Encounter: 07/18/18 - Discharge Diagnosis (1) Hypothyroidism Status: Chronic Qualifiers: Hypothyroidism type: acquired Qualified Code(s): E03.9 - Hypothyroidism, unspecified (2) DVT prophylaxis Status: Acute (3) Diabetes mellitus, type II Status: Chronic Qualifiers: Diabetes mellitus shelter insulin use: with terminal superintendent use Diabetes mellitus complication status: without complication Qualified Code(s): E11.9 - Type 2 diabetes mellitus without complications; Z79.4 - penitentiary (current) use of insulin (4) Hypertension Status: Chronic Qualifiers: Hypertension type: essential hypertension Qualified Code(s): I10 - Essential (primary) hypertension (5) RAJENDRA (obstructive sleep apnea) Status: Chronic (6) Acute pancreatitis Status: Acute Qualifiers: Pancreatitis type: drug induced Acute pancreatitis complication: no infection or necrosis Qualified Code(s): K85.30 - Drug induced acute pancreatitis without necrosis or infection (7) COPD (chronic obstructive pulmonary disease) Status: Chronic Qualifiers: COPD type: unspecified COPD Qualified Code(s): J44.9 - Chronic obstructive pulmonary disease, unspecified (8) Left flank pain Status: Acute (9) Morbid obesity with BMI of 40.0-44.9, adult Status: Chronic (10) Anemia Status: Suspected Qualifiers: Anemia type: iron deficiency Iron deficiency anemia type: chronic blood loss Qualified Code(s): D50.0 - Iron deficiency anemia secondary to blood loss (chronic) (11) Gastritis Priority: Secondary Status: Acute Qualifiers: Gastritis type: other gastritis Chronicity: acute Gastritis bleeding: without bleeding Qualified Code(s): K29.00 - Acute gastritis without bleeding Hospital course: Ms. Barraza is a 68 year old female - Time Spent with Patient Total time spent providing and/or coordinating discharge services: 38min - Discharge Medications Prescriptions: New HYDROcodone/Acet 5/325 mg [[place] 5-325 mg] 1 tab PO Q6H PRN 2 Days #8 tab PRN Reason: Breakthrough Pain Continue Lisinopril [Zestril] 40 mg PO QAM raNITIdine HCl [Zantac] 150 mg PO BID Metformin HCl [Metformin ER Gastric] 500 mg PO BID Insulin ASPART [Novolog Flexpen] 15 unit SQ TIDWM Furosemide [Lasix] 20 mg PO QAM Carvedilol 12.5 mg PO BID Marco A's Wort 300 mg PO BID Budesonide/Formoterol 80/4.5 [Symbicort 80/4.5] 1 puff IH Q12H #1 puff Levothyroxine [Synthroid] 125 mcg PO DAILY Insulin Degludec [Tresiba] 30 unit SQ HS Albuterol Sulfate [Albuterol Inhaler] 2 puff IH Q4H PRN PRN Reason: Shortness Of Breath Rosuvastatin Calcium [Crestor] 20 mg PO DAILY Isosorbide MONOnitrate (24 HR) [Imdur] 30 mg PO DAILY Fenofibrate [Tricor] 54 mg PO DAILY Home Medications: Insulin ASPART [Novolog Flexpen] 15 unit SQ TIDWM 07/06/15 [History] Lisinopril [Zestril] 40 mg PO QAM 07/06/15 [History] Metformin HCl [Metformin ER Gastric] 500 mg PO BID 07/06/15 [History] raNITIdine HCl [Zantac] 150 mg PO BID 07/06/15 [History] Carvedilol 12.5 mg PO BID 04/25/16 [History] Furosemide [Lasix] 20 mg PO QAM 04/25/16 [History] [place]'s Wort 300 mg PO BID 04/25/16 [History] Budesonide/Formoterol 80/4.5 [Symbicort 80/4.5] 1 puff IH Q12H #1 puff 04/27/16 [Rx] Albuterol Sulfate [Albuterol Inhaler] 2 puff IH Q4H PRN 07/09/18 [History] Fenofibrate [Tricor] 54 mg PO DAILY 07/09/18 [History] Insulin Degludec [Tresiba] 30 unit SQ HS 07/09/18 [History] Isosorbide MONOnitrate (24 HR) [Imdur] 30 mg PO DAILY 07/09/18 [History] Levothyroxine [Synthroid] 125 mcg PO DAILY 07/09/18 [History] Rosuvastatin Calcium [Crestor] 20 mg PO DAILY 07/09/18 [History] HYDROcodone/Acet 5/325 mg [[place] 5-325 mg] 1 tab PO Q6H PRN 2 Days #8 tab 07/18/18 [Rx] Allergies/Adverse Reactions: Allergy/AdvReac Type Severity Reaction Status Date / Time atorvastatin [From Lipitor] AdvReac Muscle Pain Verified 03/04/18 11:19 Date of admission: 07/08/18 15:41 Primary care physician: Carlo Acevedo DO Consults: 07/08/18 15:12 Consult to Physical Therapy [CONS] Routine Comment: Evaluate, develop and implement POC Reason for Consult: PT eval Does patient have active BEDREST order?: No Is patient medically & hemodynamically stable?: Yes 07/10/18 12:17 Consult to Invasive Line Access Team [CONS] Routine Reason for Consult: poor vascular access, failed attempt with vienviewer Line Type: EPIV 07/16/18 08:17 Consult to Gastroenterology [CONS] Routine Consulting Provider: Gastroenterology Jackson Reason for Consult: hgb trending down; no apparent source of bleeding Time Notified: 08:19 Call Completed: Yes - Constitutional Vitals: Temp Pulse Resp BP Pulse Ox 97.4 F L 67 18 146/68 95 07/18/18 10:22 07/18/18 10:22 07/18/18 10:22 07/18/18 10:22 07/18/18 10:22 - Patient Status Disposition: Home, Self-Care Condition: Good - Ambulatory Orders Ambulatory Orders: Hemoglobin and Hematocrit [HEME] Time Frame: 3 Days, Facility: [facility], Location: Lab - Discharge Instructions Instructions: Pancreatitis (DC) Follow Up With: Carlo Acevedo DO [Primary Care Provider] - (Web request. Office will call patient with date and time of appointment. Thank you) Jorge L Moore MD [Partnered Physician] - (Web request sent. Office will call patient with date and time of appointment. Thank you) Additional Instructions: -Advance diet very slowly starting with liquid diet for a couple days then advance the soft diet -Follow-up with the gastroenterologists Dr. Moore outpatient -Continue taking ranitidine -Get your blood drawn to recheck your hemoglobin hematocrit in 3 days and then follow-up with your family physician in about a week -Return to the hospital should you develop abdominal pain that is severe and [id number] or if you start noticing blood in your stool - Attending Attestation I examined this patient and my medical decision-making was reviewed with the Resident Physician on 07/18/18. I agree with the documented findings, disposition and treatment plan as described except to the extent set forth below. Ms Barraza has been admitted with acute pancreatitis. She had continued waxing and waning symptoms. She also had decrease in hemoglobin and had EGD showing gastritis. Today she is tolerating a liquid diet. She is afebrile and ready for discharge home. Exam Alert Comfortable Mucus membranes dry Heart not tachy No wheeze abd soft Plan D/C home Follow up with PCP and Dr. Moore Will have further imaging to see possible pseudocyst. Liquid and low residue diet Further diagnoses and plan as above. <Rosa Romero - Last Filed: 07/18/18 16:44> - NOTES TO OUTPATIENT PROVIDER Notes to Outpatient Provider: Admitted for acute pancreatitis. Prolonged course due to decreased hemoglobin for which Igor performed an EGD that showed gastritis and small hiatal hernia. Biopsies taken. 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 Sandrita.I. is going to follow-up outpatient in a repeat imaging. Repeat hemoglobin and hematocrit in 3 days. Continued on her home ranitidine. Orders not resulted at time of discharge: Pending orders 07/16/18 18:48 RAMAKRISHNA IgG ITZEL rflx IFA Routine Immunoglobulin G Subclass 4 Routine 07/17/18 15:07 Surgical Pathology [PTH] Routine Date of Encounter: 07/18/18 Time of Encounter: 10:15 - Discharge Diagnosis (1) Acute pancreatitis Priority: Primary Status: Acute Qualifiers: Pancreatitis type: drug induced Acute pancreatitis complication: no infection or necrosis Qualified Code(s): K85.30 - Drug induced acute pancreatitis without necrosis or infection (2) Anemia Priority: Secondary Status: Suspected Qualifiers: Anemia type: iron deficiency Iron deficiency anemia type: chronic blood loss Qualified Code(s): D50.0 - Iron deficiency anemia secondary to blood loss (chronic) (3) Hypothyroidism Priority: Secondary Status: Chronic Qualifiers: Hypothyroidism type: acquired Qualified Code(s): E03.9 - Hypothyroidism, unspecified (4) Diabetes mellitus, type II Priority: Secondary Status: Chronic Qualifiers: Diabetes mellitus terminal superintendent insulin use: with terminal superintendent use Diabetes mellitus complication status: without complication Qualified Code(s): E11.9 - Type 2 diabetes mellitus without complications; Z79.4 - penitentiary (current) use of insulin (5) Hypertension Priority: Secondary Status: Chronic Qualifiers: Hypertension type: essential hypertension Qualified Code(s): I10 - Essential (primary) hypertension (6) RAJENDRA (obstructive sleep apnea) Priority: Secondary Status: Chronic (7) COPD (chronic obstructive pulmonary disease) Priority: Secondary Status: Chronic Qualifiers: COPD type: unspecified COPD Qualified Code(s): J44.9 - Chronic obstructive pulmonary disease, unspecified (8) Left flank pain Priority: Secondary Status: Acute (9) Morbid obesity with BMI of 40.0-44.9, adult Priority: Secondary Status: Chronic (10) DVT prophylaxis Priority: Secondary Status: Acute Hospital course: Ms. Barraza is a 68 year old female with past medical history of recurrent pancreatitis, with last episode years ago caused by medications that have since been discontinued. Recent medication change of antibiotics and coding cough medication. Admitted for acute pancreatitis. Abdominal CT showed findings of acute pancreatitis. She was started on IV fluids, pain medication with supportive care. Triglycerides and calcium were not elevated. Her hospital course of been complicated in that during hospitalization her hemoglobin was slowly trending down. She required transfusion of 1 unit PRBC. She also developed left flank pain and hematuria those concerning for possible kidney stone. Retroperitoneal ultrasound was negative for kidney stones. She was given Flomax and IV fluids after which the left flank and hematuria pain resolved. Gastroenterology was consulted and performed an EGD that showed salmon colored mucus, gastritis, small hiatal hernia. Biopsies were taken. The patient was continued on liquid diet. Abdomen MRI showed pancreatic pseudo cyst. Her epigastric pain improved to where she was tolerating a full liquid diet. Her hemoglobin remains stable. She reported that she felt like she could go home to further managed-care. Gastroenterology recommended that she continue full liquid diet for a couple days then slowly progressed to soft diet. She is going to follow-up with G.I. in the office and have repeat imaging. Upon discharge she was alert and oriented times 3 and no acute distress. She was told to follow up with G.I. and return to the hospital should she developed severe abdominal pain. She stated clear understanding of the treatment plan. Discharge discussed with: patient, nurse - Time Spent with Patient Total time spent providing and/or coordinating discharge services: Time spent: Greater than 30 minutes Date of admission: 07/08/18 15:41 Primary care physician: Carlo Acevedo DO Consults: 07/08/18 15:12 Consult to Physical Therapy [CONS] Routine Comment: Evaluate, develop and implement POC Reason for Consult: PT eval Does patient have active BEDREST order?: No Is patient medically & hemodynamically stable?: Yes 07/10/18 12:17 Consult to Invasive Line Access Team [CONS] Routine Reason for Consult: poor vascular access, failed attempt with vienviewer Line Type: EPIV 07/16/18 08:17 Consult to Gastroenterology [CONS] Routine Consulting Provider: Gastroenterology Imelda Reason for Consult: hgb trending down; no apparent source of bleeding Time Notified: 08:19 Call Completed: Yes Discharging clinician: Hai Killian Anticipated date of discharge: 07/18/18 - Constitutional Vitals: Temp Pulse Resp BP Pulse Ox 97.4 F L 67 18 146/68 95 07/18/18 10:22 07/18/18 10:22 07/18/18 10:22 07/18/18 10:22 07/18/18 10:22 Exam: Gen.: Vitals noted. No acute distress. AAOx3 HEENT: oropharynx clear, Normocephalic, atraumatic Cardiac: RRR, no murmur, +S1/S2 Pulmonary: CTA bilaterally, no wheezes, rales or rhonchi, equal chest expansion Abdomen: soft, minimal epigastric tender, Bowel sounds noted, no guarding MSK: ROM intact, no joint swelling noted Extremities: no BLE edema, nontender calf, no cyanosis or clubbing Neuro: A&Ox3, moves all extremities, no focal deficits Psych: Appropriate mood and behavior - Patient Status Functional capacity at discharge: independent ambulation Overall status at discharge: patient is progressing back to baseline - Diet and Activity Activity: resume usual activities as tolerated Diet: advance to your usual diet
[2018-07-18 14:51] VITALS: BP 153/62
[2018-07-19 09:52] LABS: ANA IgG by ELISA NONE DETECTED (None Detected)
== END 2018-07-18 17:19 | disposition home or self-care (01) | DRG 439 ==
LOC: EMEROOARM 12:19 → 3ANU 12:19 → OBSVTOIN 15:41 → SUATTDRO 15:41 → 3ANU 16:31
PROVIDERS: ADMIT Internal Medicine Nephrology; ATTEND Internal Medicine
PROC: ENDOEBX (2018-07-17 13:30)